=== PATIENT | male | born 1940 | race Caucasian/White ===

== ENCOUNTER → 2016-10-22 | Outpatient (CLI) | payer MEDICARE, BC ==
[2016-10-22 09:00] LABS: CH 31.8; CHCM 32.6; HDW 2.51; HGB 16.4 gm/dL (13.0-17.5); MCH 31.4 pg (25.0-35.0); MCHC 32.1 g/dL (31.0-37.0); MCV 97.8 fL (80.0-100.0); Mean Platelet Volume 7.5; RBC 5.21 m/uL (4.30-5.90); RDW 12.5 % (11.5-15.5); WBC 6.8 k/uL (3.8-10.6)
[2016-10-22 11:05] LABS: ALT 40 U/L (21-72); AST 33 U/L (17-59); Alkaline Phosphatase 49 U/L (38-126); Anion Gap 10 mmol/L; Blood Urea Nitrogen 15 mg/dL (9-20); Calcium 9.9 mg/dL (8.4-10.2); Carbon Dioxide 31 mmol/L (22-30); Chloride 100 mmol/L (98-107); Cholesterol 125 mg/dL (<200); Glucose 107 mg/dL (74-99); HDL Cholesterol 51 mg/dL (40-60); Non-African American GFR(MDRD) >60 (>60 ml/min/1.73 sqM); Potassium 4.7 mmol/L (3.5-5.1); Sodium 141 mmol/L (137-145); Total Bilirubin 1.9 mg/dL (0.2-1.3); Total Protein 7.6 g/dL (6.3-8.2); Triglycerides 152 mg/dL (<150)
[2016-10-22 11:37] LABS: Prostate Specific Antigen 1.07 ng/mL (0.00-4.00)
== END | disposition home or self-care (01) ==
LOC: LABWHC1 08:03
PROVIDERS: ATTEND Internal Medicine Interventional Cardiology
DX: Z00.00 Encounter for general adult medical examination without abnormal findings (principal); E11.9 Type 2 diabetes mellitus without complications; E78.5 Hyperlipidemia, unspecified; I10 Essential (primary) hypertension; Z12.5 Encounter for screening for malignant neoplasm of prostate
CPT/HCPCS: 36415; 80053; 80061; 84153; 84439; 84443; 85027

== ENCOUNTER → 2017-01-04 | Outpatient (CLI) | payer MEDICARE, BC ==
[2017-01-04 15:15] LABS: Blood Urea Nitrogen 23 mg/dL (9-20); Non-African American GFR(MDRD) >60 (>60 ml/min/1.73 sqM)
--- NOTE | 2017-01-04 16:25 | CT ---
EXAMINATION TYPE: CT abdomen pelvis w con DATE OF EXAM: 01/04/2017 3:45 PM COMPARISON: NONE HISTORY: 76-year-old male right lower quadrant bulge. Evaluate for abdominal wall mass. TECHNIQUE: Contiguous axial scanning of the abdomen and pelvis following administration of 100 ml Omn ipaque 300 IV contrast. Delayed images through the kidneys and coronal/sagittal reconstructions perf ormed. CT DLP: 1325.20 mGycm Automated exposure control for dose reduction was used. FINDINGS: There is mild to moderate bilateral gynecomastia incidentally seen. Median sternotomy wires are prese nt. Heart upper limits of normal in size without pericardial effusion. Some strandy atelectasis perip heral left base. No pleural effusion. There is a small hiatal hernia. No focal liver lesion or biliary ductal dilatation. Portal venous system is patent. Gallbladder, adrenal glands, spleen, and pancreas within normal limits. There is bilateral renal cortical thinning suggesting underlying chronic kidney disease. Additionally , a number of 1 cm and smaller hypodense lesions are present in both kidneys, right greater than left , too small for accurate CT characterization, probable cysts. No dilated small bowel, free fluid, or free air. A few prominent retroperitoneal and mesenteric lymph nodes measuring up to 6 mm. Nonspecific, probabl y postinflammatory/reactive. Oral contrast has progressed to the hepatic flexure. There is mild stool burden without pericolonic inflammatory change. There is focal indentation along the right lower anterior abdominal wall which runs down to the anter ior pelvis. There is no underlying mass or fluid collection seen. Refer to axial images 71 through 81 . Bladder is urine distended. Prostate gland prominent measuring 4.5 cm wide. Mildly patulous and later al inguinal canals. No abnormal fluid collection in the pelvis or pelvic lymphadenopathy. Bones: Degenerative changes throughout the spine. No osseous destructive process. IMPRESSION: 1. FOCAL INDENTATION OF THE SKIN SURFACE ALONG THE RIGHT LOWER ANTERIOR ABDOMINAL WALL RUNNING DOWN T O THE ANTERIOR PELVIS; SUSPECT SOME TYPE OF CUTANEOUS/SUBCUTANEOUS SCARRING (AXIAL IMAGES 71 THROUGH 81). THERE IS NO UNDERLYING MASS OR ABNORMAL FLUID COLLECTION. 2. SMALL HIATAL HERNIA AND MILD PROSTATOMEGALY (4.5 CM WIDE).
== END | disposition home or self-care (01) ==
LOC: RADCTMAIN 14:30
PROVIDERS: ATTEND Surgery
DX: N40.0 Benign prostatic hyperplasia without lower urinary tract symptoms (principal); K44.9 Diaphragmatic hernia without obstruction or gangrene; R22.2 Localized swelling, mass and lump, trunk
CPT/HCPCS: 82565; 84520; 74177; 36415; Q9967

== ENCOUNTER → 2017-03-25 | Outpatient (CLI) | payer MEDICARE, BC ==
[2017-03-25 08:55] LABS: ALT 41 U/L (21-72); AST 33 U/L (17-59); Anion Gap 11 mmol/L; Blood Urea Nitrogen 20 mg/dL (9-20); Calcium 9.6 mg/dL (8.4-10.2); Carbon Dioxide 28 mmol/L (22-30); Chloride 100 mmol/L (98-107); Glucose 98 mg/dL (74-99); Non-African American GFR(MDRD) >60 (>60 ml/min/1.73 sqM); Sodium 139 mmol/L (137-145)
[2017-03-25 09:04] LABS: Potassium 4.7 mmol/L (3.5-5.1)
== END | disposition home or self-care (01) ==
LOC: LABWHC1 08:16
PROVIDERS: ATTEND Internal Medicine Interventional Cardiology
DX: E78.2 Mixed hyperlipidemia (principal)
CPT/HCPCS: 36415; 80048; 84450; 84460

== ENCOUNTER → 2017-09-26 | Outpatient (CLI) | payer MEDICARE, BC ==
[2017-09-26 09:47] LABS: ALT 38 U/L (21-72); AST 33 U/L (17-59); Albumin 4.4 g/dL (3.5-5.0); Alkaline Phosphatase 39 U/L (38-126); Anion Gap 10 mmol/L; Blood Urea Nitrogen 21 mg/dL (9-20); Carbon Dioxide 32 mmol/L (22-30); Chloride 98 mmol/L (98-107); Cholesterol 148 mg/dL (<200); Glucose 106 mg/dL (74-99); HDL Cholesterol 48 mg/dL (40-60); LDL Cholesterol,Calculated 66 mg/dL (0-99); Potassium 4.4 mmol/L (3.5-5.1); Sodium 140 mmol/L (137-145); Total Bilirubin 1.4 mg/dL (0.2-1.3); Total Protein 7.6 g/dL (6.3-8.2); Triglycerides 169 mg/dL (<150)
== END | disposition home or self-care (01) ==
LOC: LABWHC1 08:34
PROVIDERS: ATTEND Internal Medicine Interventional Cardiology
DX: E78.2 Mixed hyperlipidemia (principal)
CPT/HCPCS: 36415; 80053; 80061

== ENCOUNTER → 2018-01-11 | Outpatient (CLI) | payer MEDICARE, BC ==
--- NOTE | 2018-01-11 14:40 | MR ---
EXAMINATION TYPE: MR cervical spine wo con DATE OF EXAM: 01/11/2018 COMPARISON: NONE HISTORY: Neck pain TECHNIQUE: Multiplanar, multisequence images of the cervical spine were acquired. C2-C3: Central posterior disc bulge causes anterior mass effect on the thecal sac, mild central steno sis, no significant foraminal encroachment C3-C4: Posterior extension of endplate disc complex causes anterior mass effect on the thecal sac, th ere may be contact the anterior cervical cord, moderate central stenosis, lateral extension endplate disc complex causes some foraminal encroachment left greater than right. C4-C5: Posterior broad-based disc bulge may contact the anterior cervical cord, there is only mild ce ntral canal stenosis. Lateral extension endplate disc complex. Bilateral foraminal encroachment. C5-C6: Posterior broad-based disc bulge may contact the anterior cervical cord, there is moderate bob tral canal stenosis, bilateral foraminal encroachment is present due to lateral extension endplate di sc complexes. C6-C7: Broad-based posterior disc bulge causes anterior mass effect on the thecal sac, there may be c ontact the anterior cervical cord, lateral extension of endplate disc complex causes bilateral forami nal encroachment. Mild central stenosis. C7-T1: Bilateral foraminal encroachment is present due to lateral extension of endplate disc complex, broad-based posterior disc bulge causes mild anterior mass effect on the thecal sac. Cervical segments are intact. There is minimal retrolisthesis C3-4, C4-5. Cervical spinal cord is o f normal signal. Craniovertebral junction relationships are within normal limits. Multilevel spondy losis is present, there is endplate discogenic marrow signal change, loss of disc height and signal i s present at the intervertebral levels. Inflammatory changes present within the left maxillary sinus. There is mucosal disease in the sphenoid sinus, maxillary sinus. IMPRESSION: Degenerative disc disease, multilevel spinal stenosis and neural foraminal encroachment. Sinus diseas e.
== END | disposition home or self-care (01) ==
LOC: RADMRIMAIN 11:11
PROVIDERS: ATTEND Family Medicine
DX: M48.02 Spinal stenosis, cervical region (principal); M50.30 Other cervical disc degeneration, unspecified cervical region; M51.36 Other intervertebral disc degeneration, lumbar region
CPT/HCPCS: 72141

== ENCOUNTER → 2018-04-06 | Outpatient (CLI) | payer MEDICARE, BC ==
[2018-04-06 09:55] LABS: ALT 46 U/L (21-72); AST 35 U/L (17-59); Albumin 4.1 g/dL (3.5-5.0); Alkaline Phosphatase 33 U/L (38-126); Anion Gap 8 mmol/L; Blood Urea Nitrogen 16 mg/dL (9-20); Calcium 9.5 mg/dL (8.4-10.2); Carbon Dioxide 30 mmol/L (22-30); Chloride 101 mmol/L (98-107); Cholesterol 114 mg/dL (<200); Glucose 102 mg/dL (74-99); HDL Cholesterol 53 mg/dL (40-60); LDL Cholesterol,Calculated 36 mg/dL (0-99); Potassium 4.5 mmol/L (3.5-5.1); Sodium 139 mmol/L (137-145); Total Bilirubin 1.6 mg/dL (0.2-1.3); Total Protein 6.9 g/dL (6.3-8.2); Triglycerides 123 mg/dL (<150)
== END | disposition home or self-care (01) ==
LOC: LABWHC1 08:30
PROVIDERS: ATTEND Internal Medicine Interventional Cardiology
DX: E78.2 Mixed hyperlipidemia (principal)
CPT/HCPCS: 36415; 80053; 80061

== ENCOUNTER 2018-10-09 15:33 | Emergency (ER) | payer MEDICARE, BC ==
[2018-10-09 15:48] VITALS: BP 154/76; PULSE 57; RESP 18; TEMP 98.1
[2018-10-09] MEDS ORDERED: DIPH,PERTUS(ACELL)TETVAC-LF 0.5 ML VIAL IM ONE (15:52)
--- NOTE | 2018-10-09 16:52 | XR ---
Right hand 3 views. History laceration. Crush injury. Comparison none. FINDINGS: There is significant soft tissue swelling on the dorsum of the hand. I see no displaced fracture. On the lateral view there is suggestion of a nondisplaced fracture of the head of the second metacarpal. There is some narrowing of the second MP joint space. The carpal bones appear intact. There is some narrowing of the IP joint spaces with mild spurring. IMPRESSION: Soft tissue swelling. Possible hairline fracture of the head of the second metacarpal. The Osteoarthritis.
--- NOTE | 2018-10-09 17:06 | ED ---
Upper Extremity HPI - General Chief Complaint: Extremity Injury, Upper Stated Complaint: hand laceration sent by dr cuello Time Seen by Provider: 10/09/18 15:50 Source: patient Mode of arrival: ambulatory Limitations: no limitations - History of Present Illness Initial Comments: 78-year-old male presenting today for chief complaint of right hand bruising and superficial skin abrasion. Patient states he was at the [employer] when his door swung open smashing it between a brick wall and his car door. Patient states he has superficial abrasions, denies any deep lacerations. Denies any numbness tingling or loss sensation. Patient is to hand swelling and bruising. Patient states he is on anticoagulation therapy for atrial fibrillation, Plavix. Patient states there is pain to the second digit however he is able to fully range without any strength deficit. Patient states he has full sensation. Review of systems negative, patient denies fall or injury to any other extremity he denies any wrist or elbow pain. Patient denies any recent fever, chills, shortness of breath, chest pain, back pain, abdominal pain, nausea or vomiting, numbness or tingling, dysuria or hematuria, constipation or diarrhea, headaches or visual changes, or any other complaints. - Related Data Allergies Allergy/AdvReac Type Severity Reaction Status Date / Time No Known Allergies Allergy Verified 10/09/18 15:48 Review of Systems ROS Statement: Those systems with pertinent positive or pertinent negative responses have been documented in the HPI. ROS Other: All systems not noted in ROS Statement are negative. Past Medical History Past Medical History: Hyperlipidemia, Hypertension, Myocardial Infarction ([place]) Additional Past Medical History / Comment(s): mi x 3 History of Any Multi-Drug Resistant Organisms: None Reported Past Surgical History: Cholecystectomy, Coronary Bypass/CABG, Joint Replacement Additional Past Surgical History / Comment(s): ascending aortic replacement 3 knee replacement Past Psychological History: No Psychological Hx Reported Smoking Status: Never smoker Past Alcohol Use History: Occasional Past Drug Use History: None Reported General Exam - General Exam Comments Initial Comments: General: The patient is awake and alert, in no distress, and does not appear acutely ill. Eye: Pupils are equal, round and reactive to light, extra-ocular movements are intact. No nystagmus. There is normal conjunctiva bilaterally. No signs of icterus. Ears, nose, mouth and throat: There are moist mucous membranes and no oral lesions. Neck: The neck is supple, there is no tenderness or JVD. Cardiovascular: There is a regular rate and rhythm. No murmur, rub or gallop is appreciated. Respiratory: Lungs are clear to auscultation, respirations are non-labored, breath sounds are equal. No wheezes, stridor, rales, or rhonchi. Musculoskeletal: Upon inspection of the hands bilaterally there is significant soft tissue swelling of the right hand as well as ecchymosis. Consistent with subcutaneous hematoma. Patient is able to fully range all 5 digits of the right hand equal comparison with the left. Patient does complain of increased pain with range motion at the second digit. There are superficial abrasions over the MTP joint and sightly proximal. No deeper laceration. Strength 5/5 at the MTP DIP and PIP joints of the hand equal comparison bilaterally each joint was isolated. Sensation intact of the upper extremities equal bilaterally including proximal distal to injury. compartment are soft and compressible. Radial pulses equal bilaterally 2+. Patient denies any recent fever, chills, shortness of breath, chest pain, back pain, abdominal pain, nausea or vomiting, numbness or tingling, dysuria or hematuria, constipation or diarrhea, headaches or visual changes, or any other complaints.Capillary refill < 2 seconds. Patient is able to make the okay fingers crossed thumbs-up extend the wrist and finger opposition of the hands bilaterally. Ulnar median and radial nerves appear intact Neurological: A&O x 3. CN II-XII intact, There are no obvious motor or sensory deficits. Coordination appears grossly intact. Speech is normal. Skin: Skin is warm and dry and no rashes or lesions are noted. Psychiatric: Cooperative, appropriate mood & affect, normal judgment. Limitations: no limitations Course Vital Signs 10/09/18 15:43 Temperature 98.1 F Pulse Rate 57 L Respiratory 18 Rate Blood Pressure 154/76 O2 Sat by Pulse 95 Oximetry Medical Decision Making - Medical Decision Making 78-year-old male presented for right hand injury. Physical exam revealed hematoma. There is a possible hairline fracture of the right second metatarsal. There is point localization of his pain I feel this is acute. Patient neurovascularly intact. Compartments are soft and compressible. Patient was given [facility] instruction and referral for orthopedic surgery evaluation. I discussed the case with attending provider, Dr Boggs at this time we do feel patient is stable for discharge with outpatient follow-up. Patient is agreeable plan. Patient states tetanus is up-to-date. Pt discharged appearing well. Disposition Clinical Impression: Hand abrasion, Traumatic hematoma of hand, Fracture of second metacarpal bone of right hand Disposition: HOME SELF-CARE Condition: Good Instructions (If sedation given, give patient instructions): Hand Fracture (ED) , Abrasion (ED), Hematoma (ED) Additional Instructions: Please use medication as discussed. Please follow-up with family doctor in the next 2 days. Please return to emergency room if the symptoms increase or worsen or for any other concerns. Is patient prescribed a controlled substance at d/c from ED?: No Referrals: Sunny Cuello MD [Primary Care Provider] - 1-2 days Time of Disposition: 17:06
== END 2018-10-09 17:20 | disposition home or self-care (01) ==
LOC: EC 15:33
DX: S92.321A Displaced fracture of second metatarsal bone, right foot, initial encounter for closed fracture (principal); S60.221A Contusion of right hand, initial encounter; I48.91 Unspecified atrial fibrillation; I10 Essential (primary) hypertension; I25.2 Old myocardial infarction; Z79.01 Long term (current) use of anticoagulants; Z79.02 Long term (current) use of antithrombotics/antiplatelets; Z95.1 Presence of aortocoronary bypass graft; Z96.659 Presence of unspecified artificial knee joint; W23.0XXA Caught, crushed, jammed, or pinched between moving objects, initial encounter; Y93.89 Activity, other specified; Y92.89 Other specified places as the place of occurrence of the external cause
CPT/HCPCS: 99283

== ENCOUNTER → 2018-10-18 | Outpatient (CLI) | payer MEDICARE, BC ==
[2018-10-18 18:16] LABS: HCT 43.5 % (39.0-53.0); HGB 14.1 gm/dL (13.0-17.5); MCH 30.9 pg (25.0-35.0); MCHC 32.4 g/dL (31.0-37.0); MCV 95.1 fL (80.0-100.0); Mean Platelet Volume 7.3; Platelet Count 143 k/uL (150-450); RBC 4.58 m/uL (4.30-5.90); RDW 13.1 % (11.5-15.5); WBC 8.9 k/uL (3.8-10.6)
[2018-10-19 01:41] LABS: Albumin 4.2 g/dL (3.80-4.90); Anion Gap 9.1 mmol/L (4.00-12.00); Calcium 9.4 mg/dL (8.7-10.3); Carbon Dioxide 25.9 mmol/L (21.6-31.8); Globulin 2.1 g/dL (1.6-3.3); Potassium 4.2 mmol/L (3.5-5.5); Total Bilirubin 1.7 mg/dL (0.3-1.2); Total Protein 6.3 g/dL (6.2-8.2)
== END | disposition home or self-care (01) ==
LOC: LABWHC1 16:42
PROVIDERS: ATTEND Thoracic Surgery (Cardiothoracic Vascular Surgery)
DX: E63.8 Other specified nutritional deficiencies (principal)
CPT/HCPCS: 36415; 80053; 84134; 85027

== ENCOUNTER → 2018-12-04 | Outpatient (CLI) | payer MEDICARE, BC ==
[2018-12-04 18:25] LABS: Albumin 4.3 g/dL (3.80-4.90); Albumin/Globulin Ratio 2.26 (1.60-3.17); Anion Gap 7.5 mmol/L (4.00-12.00); Calcium 9.4 mg/dL (8.7-10.3); Carbon Dioxide 27.5 mmol/L (21.6-31.8); Globulin 1.9 g/dL (1.6-3.3); LDL Cholesterol,Calculated 43.8 mg/dL (0.0-131.0); Potassium 4.2 mmol/L (3.5-5.5); Total Bilirubin 1.4 mg/dL (0.2-1.2); Total Protein 6.2 g/dL (6.2-8.2); VLDL Calculation 20.2 mg/dL (5.00-40.00)
== END ==
LOC: LABWHC1 07:52
PROVIDERS: ATTEND Internal Medicine Interventional Cardiology
DX: E78.2 Mixed hyperlipidemia (principal)
CPT/HCPCS: 36415; 80053; 80061

== ENCOUNTER → 2019-06-01 | Outpatient (CLI) | payer MEDICARE, BC ==
[2019-06-01 08:35] LABS: Basophils # (A) 0.1 k/uL (0-0.2); Basophils % (A) 2 %; Eosinophils # (A) 0.4 k/uL (0-0.7); Eosinophils % (A) 5 %; HCT 49.8 % (39.0-53.0); HGB 15.6 gm/dL (13.0-17.5); Lymphocytes # (A) 1.3 k/uL (1.0-4.8); Lymphocytes % (A) 17 %; MCH 30.9 pg (25.0-35.0); MCHC 31.2 g/dL (31.0-37.0); MCV 98.8 fL (80.0-100.0); Mean Platelet Volume 6.6; Monocytes # (A) 0.4 k/uL (0-1.0); Monocytes % (A) 5 %; Neutrophils # (A) 5.2 k/uL (1.3-7.7); Neutrophils % (A) 69 %; Platelet Count 165 k/uL (150-450); RBC 5.04 m/uL (4.30-5.90); RDW 12.7 % (11.5-15.5); WBC 7.5 k/uL (3.8-10.6)
[2019-06-01 15:59] LABS: T4, Free (Free Thyroxine) 1.2 ng/dL (0.80-1.80)
[2019-06-01 16:35] LABS: African American GFR (CKD) 93.8 (60.0-200.0); Albumin 4.2 g/dL (3.80-4.90); Albumin/Globulin Ratio 1.91 (1.60-3.17); Anion Gap 8.5 mmol/L (4.00-12.00); BUN/Creat Ratio 23.33 Ratio (12.00-20.00); Calcium 9.5 mg/dL (8.7-10.3); Carbon Dioxide 30.5 mmol/L (21.6-31.8); Chol/HDL Ratio 3.04; Globulin 2.2 g/dL (1.6-3.3); LDL Cholesterol,Calculated 64.6 mg/dL (0.0-131.0); Potassium 4.5 mmol/L (3.5-5.5); Total Bilirubin 1.4 mg/dL (0.2-1.2); Total Protein 6.4 g/dL (6.2-8.2); VLDL Calculation 37.4 mg/dL (5.00-40.00)
== END | disposition home or self-care (01) ==
LOC: LABWHC1 08:01
PROVIDERS: ATTEND Family Medicine
DX: Z00.00 Encounter for general adult medical examination without abnormal findings (principal); I10 Essential (primary) hypertension; E78.5 Hyperlipidemia, unspecified; E11.9 Type 2 diabetes mellitus without complications; I25.2 Old myocardial infarction; Z12.5 Encounter for screening for malignant neoplasm of prostate
CPT/HCPCS: 36415; 80053; 80061; 84153; 84439; 84443; 85025

== ENCOUNTER → 2020-02-18 | Outpatient (CLI) | payer BC, MEDICARE ==
[2020-02-18 16:21] LABS: Albumin 3.9 g/dL (3.80-4.90); Albumin/Globulin Ratio 1.7 (1.60-3.17); Anion Gap 8.1 mmol/L (4.00-12.00); Calcium 9.5 mg/dL (8.7-10.3); Carbon Dioxide 27.9 mmol/L (21.6-31.8); Chol/HDL Ratio 2.57; Globulin 2.3 g/dL (1.6-3.3); LDL Cholesterol,Calculated 47.6 mg/dL (0.0-131.0); Non-African American GFR(CKD) 70.8 (60.0-200.0); Potassium 4.2 mmol/L (3.5-5.5); Total Bilirubin 1.8 mg/dL (0.3-1.2); Total Protein 6.2 g/dL (6.2-8.2); VLDL Calculation 21.4 mg/dL (5.00-40.00)
== END | disposition home or self-care (01) ==
LOC: LABWHC1 08:08
PROVIDERS: ATTEND Internal Medicine Interventional Cardiology
DX: E78.2 Mixed hyperlipidemia (principal)
CPT/HCPCS: 36415; 80053; 80061

== ENCOUNTER 2020-05-13 08:30 | Inpatient (IN) | payer MEDICARE ==
--- NOTE | 2020-05-13 08:55 | ED ---
General Adult HPI - General Chief complaint: Shortness of Breath Stated complaint: SOB Time Seen by Provider: 05/13/20 08:34 Source: patient, RN notes reviewed, old records reviewed Mode of arrival: EMS Limitations: no limitations - History of Present Illness Initial comments: 80-year-old male with 4 days of worsening dyspnea. Reports a mild cough which is nonproductive. No significant chest pain. He reports orthopnea which has worsened over the past 4 days. He had seen his physician and was awaiting a virtual visit. He denies fever. Denies lower extremity swelling. - Related Data Home Medications Medication Instructions Recorded Confirmed Acetaminophen [Tylenol Arthritis] 650 mg PO HS PRN 10/18/18 05/13/20 Aspirin [Adult Low Dose Aspirin EC] 81 mg PO DAILY 10/18/18 05/13/20 Enalapril Maleate [Vasotec] 2.5 mg PO DAILY 10/18/18 05/13/20 Metoprolol Tartrate [Lopressor] 50 mg PO DAILY 10/18/18 05/13/20 Rivaroxaban [Xarelto] 20 mg PO DAILY 10/18/18 05/13/20 Rosuvastatin [Crestor] 5 mg PO DAILY 10/18/18 05/13/20 Albuterol Sulfate [Ventolin HFA] 2 puff INHALATION RT-QID PRN 05/13/20 05/13/20 Amoxicillin/Potassium Clav 1 tab PO Q12HR 05/13/20 05/13/20 [Augmentin 875-125 Tablet] Allergies Allergy/AdvReac Type Severity Reaction Status Date / Time No Known Allergies Allergy Verified 05/13/20 09:19 Review of Systems ROS Statement: Those systems with pertinent positive or pertinent negative responses have been documented in the HPI. ROS Other: All systems not noted in ROS Statement are negative. Past Medical History Past Medical History: Atrial Fibrillation, Coronary Artery Disease (CAD), Hyperlipidemia, Hypertension, Myocardial Infarction ([place]) Additional Past Medical History / Comment(s): mi x 3. fx rt hand Last Myocardial Infarction Date:: 2003 History of Any Multi-Drug Resistant Organisms: None Reported Past Surgical History: Cholecystectomy, Coronary Bypass/CABG, Joint Replacement Additional Past Surgical History / Comment(s): ascending aortic replacement 3 knee replacement Past Psychological History: No Psychological Hx Reported Past Alcohol Use History: Occasional Past Drug Use History: None Reported General Exam Limitations: no limitations General appearance: alert, in no apparent distress Head exam: Present: atraumatic, normocephalic Eye exam: Present: normal appearance, PERRL ENT exam: Present: normal exam Respiratory exam: Present: respiratory distress, rales, decreased breath sounds Cardiovascular Exam: Present: normal rhythm, tachycardia GI/Abdominal exam: Present: soft. Absent: distended, tenderness, guarding, rebound Extremities exam: Present: normal inspection, normal capillary refill. Absent: pedal edema Neurological exam: Present: alert, oriented X3, CN II-XII intact. Absent: motor sensory deficit Psychiatric exam: Present: normal affect, normal mood Skin exam: Present: warm, dry, intact Course Vital Signs 05/13/20 05/13/20 05/13/20 08:32 09:00 10:12 Temperature 99.4 F 97.6 F Pulse Rate 146 H 105 H Respiratory 20 22 19 Rate Blood Pressure 140/111 136/102 O2 Sat by Pulse 89 L 90 L Oximetry EKG Findings - EKG Comments: EKG Findings:: EKG, atrial fibrillation with PVC, rate of 138, QRS duration 118, QTC 481. Repeat EKG at 855, atrial fibrillation with RVR, PVC, no ST segment elevation, rate of 109, QRS duration 118, QTC 422 Medical Decision Making - Medical Decision Making 80-year-old male history of atrial fibrillation, CHF presenting with 4 days of worsening dyspnea. Workup is initiated, EKG showing atrial fibrillation with RVR. Chest x-ray showing pulmonary edema and bilateral pleural effusion. Patient has a stable hemoglobin, elevated white blood cell count at 16.0 given his dyspnea and cough he is started on antibiotics in the emergency department. He has a lactic of 3.4 which is suspect is predominantly from hypoxia rather than sepsis. His BNP is elevated at 7000. Troponin is elevated 0.14. He is on Xarelto, no active chest pain, I suspect this is from demand and CHF. Troponin level will be trended. Case discussed with Dr. Pruitt who will admit, cardiology placed on consult, as well as pulmonology. - Lab Data Result diagrams: 05/13/20 09:09 05/13/20 09:09 Lab Results 05/13/20 05/13/20 05/13/20 Range/Units 09:09 09:09 09:09 WBC 16.0 H (3.8-10.6) k/uL RBC 5.05 (4.30-5.90) m/uL Hgb 15.4 (13.0-17.5) gm/dL Hct 48.6 (39.0-53.0) % MCV 96.3 (80.0-100.0) fL MCH 30.6 (25.0-35.0) pg MCHC 31.8 (31.0-37.0) g/dL RDW 12.6 (11.5-15.5) % Plt Count 157 (150-450) k/uL Neutrophils % 89 % Lymphocytes % 4 % Monocytes % 6 % Eosinophils % 0 % Basophils % 0 % Neutrophils # 14.3 H (1.3-7.7) k/uL Lymphocytes # 0.7 L (1.0-4.8) k/uL Monocytes # 0.9 (0-1.0) k/uL Eosinophils # 0.1 (0-0.7) k/uL Basophils # 0.1 (0-0.2) k/uL PT 13.4 H (9.0-12.0) sec INR 1.3 H (<1.2) APTT 25.9 (22.0-30.0) sec Sodium 134 L (137-145) mmol/L Potassium 3.9 (3.5-5.1) mmol/L Chloride 97 L (98-107) mmol/L Carbon Dioxide 23 (22-30) mmol/L Anion Gap 14 mmol/L BUN 19 (9-20) mg/dL Creatinine 0.87 (0.66-1.25) mg/dL Est GFR (CKD-EPI)AfAm >90 (>60 ml/min/1.73 sqM) Est GFR (CKD-EPI)NonAf 82 (>60 ml/min/1.73 sqM) Glucose 218 H (74-99) mg/dL Plasma Lactic Acid Davion (0.7-2.0) mmol/L Calcium 8.8 (8.4-10.2) mg/dL Magnesium 1.7 (1.6-2.3) mg/dL Total Bilirubin 4.7 H (0.2-1.3) mg/dL AST 62 H (17-59) U/L ALT 36 (4-49) U/L Alkaline Phosphatase 48 (38-126) U/L Troponin I (0.000-0.034) ng/mL NT-Pro-B Natriuret Pep pg/mL Total Protein 7.4 (6.3-8.2) g/dL Albumin 4.4 (3.5-5.0) g/dL 05/13/20 05/13/20 05/13/20 Range/Units 09:09 09:09 09:09 WBC (3.8-10.6) k/uL RBC (4.30-5.90) m/uL Hgb (13.0-17.5) gm/dL Hct (39.0-53.0) % MCV (80.0-100.0) fL MCH (25.0-35.0) pg MCHC (31.0-37.0) g/dL RDW (11.5-15.5) % Plt Count (150-450) k/uL Neutrophils % % Lymphocytes % % Monocytes % % Eosinophils % % Basophils % % Neutrophils # (1.3-7.7) k/uL Lymphocytes # (1.0-4.8) k/uL Monocytes # (0-1.0) k/uL Eosinophils # (0-0.7) k/uL Basophils # (0-0.2) k/uL PT (9.0-12.0) sec INR (<1.2) APTT (22.0-30.0) sec Sodium (137-145) mmol/L Potassium (3.5-5.1) mmol/L Chloride (98-107) mmol/L Carbon Dioxide (22-30) mmol/L Anion Gap mmol/L BUN (9-20) mg/dL Creatinine (0.66-1.25) mg/dL Est GFR (CKD-EPI)AfAm (>60 ml/min/1.73 sqM) Est GFR (CKD-EPI)NonAf (>60 ml/min/1.73 sqM) Glucose (74-99) mg/dL Plasma Lactic Acid Davion 3.4 H* (0.7-2.0) mmol/L Calcium (8.4-10.2) mg/dL Magnesium (1.6-2.3) mg/dL Total Bilirubin (0.2-1.3) mg/dL AST (17-59) U/L ALT (4-49) U/L Alkaline Phosphatase (38-126) U/L Troponin I 0.146 H* (0.000-0.034) ng/mL NT-Pro-B Natriuret Pep 7230 pg/mL Total Protein (6.3-8.2) g/dL Albumin (3.5-5.0) g/dL Critical Care Time Critical Care Time: Yes Total Critical Care Time: 35 Disposition Clinical Impression: Community acquired pneumonia, Congestive heart failure Disposition: ADMITTED IP TO THIS [facility] Condition: Stable Is patient prescribed a controlled substance at d/c from ED?: No Referrals: Sunny Pruitt MD [Primary Care Provider] - 1-2 days Decision to Admit Reason: Admit from EC Decision Date: 05/13/20 Decision Time: 10:28
[2020-05-13] MEDS ORDERED: DILTIAZEM DRIP BOLUS FROM BAG 1 MG SOLN IV ONE (09:00)
[2020-05-13 09:18] LABS: Basophils # (A) 0.1 k/uL (0-0.2); Basophils % (A) 0 %; Eosinophils # (A) 0.1 k/uL (0-0.7); Eosinophils % (A) 0 %; HCT 48.6 % (39.0-53.0); HGB 15.4 gm/dL (13.0-17.5); Lymphocytes # (A) 0.7 k/uL (1.0-4.8); Lymphocytes % (A) 4 %; MCH 30.6 pg (25.0-35.0); MCHC 31.8 g/dL (31.0-37.0); MCV 96.3 fL (80.0-100.0); Mean Platelet Volume 7.5; Monocytes # (A) 0.9 k/uL (0-1.0); Monocytes % (A) 6 %; Neutrophils # (A) 14.3 k/uL (1.3-7.7); Neutrophils % (A) 89 %; Platelet Count 157 k/uL (150-450); RBC 5.05 m/uL (4.30-5.90); RDW 12.6 % (11.5-15.5)
[2020-05-13 09:28] LABS: INR 1.3 (<1.2); Partial Thromboplastin Time 25.9 sec (22.0-30.0); Prothrombin Time 13.4 sec (9.0-12.0)
[2020-05-13] MEDS ORDERED: FUROSEMIDE 10 MG/ML 4 ML VIAL IV STA (09:28)
[2020-05-13] MEDS: DILTIAZEM 125 MG in SODIUM CHLORIDE 0.9% 100 ML IV SCH (09:41)
--- NOTE | 2020-05-13 09:43 | XR ---
EXAMINATION TYPE: XR chest 2V DATE OF EXAM: 05/13/2020 COMPARISON: Prior chest x-ray 12/27/2012 HISTORY: Difficulty breathing, shortness of breath TECHNIQUE: Frontal and lateral views of the chest are obtained. FINDINGS: There is stable appearance of the heart which is enlarged. Aorta is dense. Central vascula rity and interstitium are increased. There is elevation of the right hemidiaphragm. Looking the poste rior costophrenic angle suggested. There are coronary artery calcifications. Patient is post median s ternotomy. The osseous structures are intact, there is thoracic spondylosis. IMPRESSION: Correlate for pulmonary venous hypertension and interstitial edema, there may be pleural effusion.
[2020-05-13 09:49] LABS: ALT 36 U/L (4-49); AST 62 U/L (17-59); African American GFR (CKD) >90 (>60 ml/min/1.73 sqM); Albumin 4.4 g/dL (3.5-5.0); Alkaline Phosphatase 48 U/L (38-126); Anion Gap 14 mmol/L; Blood Urea Nitrogen 19 mg/dL (9-20); Calcium 8.8 mg/dL (8.4-10.2); Carbon Dioxide 23 mmol/L (22-30); Chloride 97 mmol/L (98-107); Glucose 218 mg/dL (74-99); Magnesium 1.7 mg/dL (1.6-2.3); Non-African American GFR(CKD) 82 (>60 ml/min/1.73 sqM); Sodium 134 mmol/L (137-145); Total Bilirubin 4.7 mg/dL (0.2-1.3); Total Protein 7.4 g/dL (6.3-8.2)
[2020-05-13 09:54] LABS: Potassium 3.9 mmol/L (3.5-5.1)
[2020-05-13] MEDS ORDERED: cefTRIAXone IN SWFI 1,000 MG/10 ML SYRINGE IVP STA (10:00)
[2020-05-13] MEDS ORDERED: AZITHROMYCIN 500 MG in SODIUM CHLORIDE 0.9% 250 ML IVPB STA (10:00)
[2020-05-13] MEDS ORDERED: NALOXONE 0.4 MG/ML 1 ML VIAL IV PRN (10:25)
[2020-05-13] MEDS ORDERED: ACETAMINOPHEN TAB 325 MG TAB PO PRN (10:25)
--- NOTE | 2020-05-13 17:17 | ECHOF ---
Referral Reason:chf MEASUREMENTS -------- HEIGHT: 162.6 cm WEIGHT: 81.6 kg BP: RVIDd: 3.6 cm (< 3.3) IVSd: 1.4 cm (0.6 - 1.1) LVIDd: 4.0 cm (3.9 - 5.3) LVPWd: 1.2 cm (0.6 - 1.1) IVSs: 1.5 cm LVIDs: 4.2 cm LVPWs: 1.0 cm LA Diam: 4.4 cm (2.7 - 3.8) LAESV Index (A-L): 36.14 ml/m Ao Diam: 2.5 cm (2.0 - 3.7) MV EXCURSION: 16.963 mm (> 18.000) MV EF SLOPE: 59 mm/s (70 - 150) EPSS: 0.4 cm MV E Jimbo: 0.71 m/s MV DecT: 178 ms MV A Jimbo: 0.72 m/s MV E/A Ratio: 0.98 AV maxP.97 mmHg AV meanP.45 mmHg RAP: 10.00 mmHg RVSP: 59.50 mmHg FINDINGS -------- Sinus rhythm. This was a techncally difficult study with suboptimal views, , Definity utilized for enhancement of i mages. The left ventricular size is normal. Left ventricular wall thickness is normal. There is severe g lobal hypokinesis of LV . Overall left ventricular systolic function is severely impaired with, an EF between 20 - 25 %. The right ventricle is moderately enlarged. The left atrium is markedly dilated. LA is severely dilated >40 ml/m2 The right atrial size is normal. Peak/mean gradient across the Aortic Valve is 11.97mmHg / 7.45mmHg. Normally functioning bioprosthe tic valve. Mild mitral annular calcification present. [id number] mitral regurgitation is present. Mild tricuspid regurgitation present. There is moderate pulmonary hypertension. Trace/mild (physiologic) pulmonic regurgitation. The aortic root size is normal. There is no pericardial effusion. CONCLUSIONS -------- 1. The left ventricular size is normal. 2. Left ventricular wall thickness is normal. 3. There is severe global hypokinesis of LV . 4. Overall left ventricular systolic function is severely impaired with, an EF between 20 - 25 %. 5. The right ventricle is moderately enlarged. 6. The left atrium is markedly dilated. 7. LA is severely dilated >40 ml/m2 8. The right atrial size is normal. 9. Peak/mean gradient across the Aortic Valve is 11.97mmHg / 7.45mmHg. 10. Normally functioning bioprosthetic valve. 11. Mild mitral annular calcification present. 12. [id number] mitral regurgitation is present. 13. Mild tricuspid regurgitation present. 14. There is moderate pulmonary hypertension. 15. Trace/mild (physiologic) pulmonic regurgitation. 16. The aortic root size is normal. 17. There is no pericardial effusion. NUCLEAR OPERATIONS SPECIALIST: Mikki Kenyon RDCS
--- NOTE | 2020-05-13 20:08 | CONS ---
CONSULTATION PULMONARY/CRITICAL CARE CONSULTATION: DATE OF SERVICE: 05/13/2020 REASON FOR CONSULTATION: Shortness of breath. This is an 80-year-old male who presented to the emergency department on May 13 at 8:30 in the morning with complaints of increasing shortness of breath. The patient states that for the last 4 days he has had increasing shortness of breath. He does describe a mild nonproductive cough. No fever or chills. The patient denies any coughing up of phlegm. He denies all GI complaints, including nausea, vomiting, diarrhea and abdominal pain. He also denies any genitourinary complaints. The patient has had this episode before when he has had congestive heart failure. He feels it is likely that. In addition, he does admit to rapid heartbeat, palpitations and fluttering in the chest, and it is noted that he is on Cardizem drip for atrial fibrillation with RVR. The patient does have some mild lower extremity edema as well. He also described what appears to be orthopnea. He is resting comfortably. He was given Lasix in the emergency department. He is waiting for a bed. The patient states that he has urinated quite frequently and significantly since receiving the IV Lasix. It appears the patient has had multiple admissions for similar episodes. He was admitted by the ER physician for heart failure and pneumonia. I do not suspect that he has pneumonia. HOME MEDICATIONS: Reviewed. He is on Tylenol, aspirin, Vasotec, metoprolol, Xarelto, Crestor, albuterol and Augmentin. ALLERGIES: DENIED. PAST MEDICAL HISTORY: His past medical history includes atrial fibrillation, CAD, hyperlipidemia, hypertension, myocardial infarction, and episode previously of CHF/fluid overload. He has had 3 myocardial infarctions. He also suffers from a history of fracture to the right hand. His last PR was in 2003. SURGICAL HISTORY: Surgical history includes cholecystectomy, heart surgery and joint replacement. The patient has had 3 knee replacements, and his cardiac surgery included aortic valve replacement and repair of an aortic aneurysm. SOCIAL HISTORY: Negative for tobacco. He denies any illicit drug use or alcohol use to any great extent. FAMILY HISTORY: Noncontributory. REVIEW OF SYSTEMS: CONSTITUTIONAL: Fatigue NEUROLOGIC: Negative. HEENT: Negative. CARDIOVASCULAR: Palpitations, fluttering in the chest, shortness of breath. PULMONARY: Shortness of breath, dry nonproductive cough. GI: Negative. : Negative. RHEUMATOLOGIC: Negative. IMMUNOLOGIC: Negative. ENDOCRINOLOGIC: Negative. DERMATOLOGIC: Negative. PHYSICAL EXAMINATION: VITAL SIGNS: Vital signs are reviewed. Temperature is 97.6, heart rate 106 and irregular, respiratory rate 18, blood pressure 144/93, mean 110, four-liter saturation 91% to 92%. GENERAL APPEARANCE: Appears in no acute distress. HEENT: Examination is grossly unremarkable. Nasal oxygen noted. NECK: Supple. Full range of motion. No adenopathy or thyromegaly. Neck veins are flat. CARDIOVASCULAR: Cardiovascular examination reveals regular rhythm and rate. S1, S2 normal. No S3, S4 or murmur. LUNGS: Lungs reveal bibasilar crackles. Breath sounds equal. No wheezes or rhonchi. ABDOMEN: Soft, obese. Bowel sounds are heard. EXTREMITIES: Extremities reveal some mild edema. No cyanosis or clubbing. SKIN: Without rash. NEUROLOGIC: Neurologic examination is nonfocal. LABS/IMAGING: Reviewed. White count 19, hemoglobin 15.4, hematocrit 48.6, platelet count 157,000. PT 13.4, INR 1.3, PTT is 25.9. Sodium 134, potassium 3.9, chloride 97, CO2 23. Anion gap is 14. BUN and creatinine were 19 and 0.87, glucose 218. Lactic acid 3.4. Total bilirubin is 4.7, AST 62, ALT 36. Troponin 0.146. N-terminal proBNP is 7230. Microbiology is currently negative. Chest x-ray is consistent in my opinion with some pulmonary venous hypertension and interstitial edema. CURRENT MEDICATIONS: Current medications are reviewed. He is currently on Tylenol, Cardizem drip, Lasix and Narcan. He did get a dose of Zithromax and ceftriaxone in the emergency room. I really do not believe he needs any antibiotics at this time. ASSESSMENT: 1. Shortness of breath with orthopnea and lower extremity edema as well as atrial fibrillation with rapid ventricular response, all consistent with congestive heart failure. 2. Doubt pneumonia. 3. Status post aortic valve replacement and repair of a thoracic aortic aneurysm in 2015. 4. Hyperlipidemia. 5. Hypertension. 6. Coronary artery disease. 7. Previous myocardial infarction. 8. Multiple other medical problems and comorbidities. PLAN: Current treatment is appropriate. I do not believe the patient would benefit from any additional antibiotics. One could check a procalcitonin level. Additional recommendations and suggestions are forthcoming. Will continue to follow. MMODL / IJN: [id number] /
[2020-05-13] MEDS: FUROSEMIDE 10 MG/ML 4 ML VIAL IV SCH (21:52)
--- NOTE | 2020-05-13 23:14 | P.HPIM ---
History of Present Illness H&P Date: 05/13/20 Chief Complaint: Dyspnea This is a history of physical and 80-year-old white male with known history of atrial fibrillation who has been complaining of 3-4 day history of worsening dyspnea on exertion. Evaluation of the management did show atrial fibrillation with rapid ventricular response and subsequent pleural effusion. The patient is able to hold a conversation but is slightly dyspneic. No significant edema is stated. Review of Systems Constitutional: Reports fatigue, Denies chills, Denies fever Eyes: denies blurred vision, denies pain Ears, nose, mouth and throat: Denies headache, Denies sore throat Cardiovascular: Reports as per HPI, Reports shortness of breath, Denies leg edema, Denies syncope Respiratory: Denies cough Musculoskeletal: Denies myalgias Integumentary: Denies pruritus, Denies rash Psychiatric: Denies anxiety, Denies depression Past Medical History Past Medical History: Atrial Fibrillation, Coronary Artery Disease (CAD), Heart Failure, Hyperlipidemia, Hypertension, Myocardial Infarction (AZ) Additional Past Medical History / Comment(s): mi x 3. fx rt hand Last Myocardial Infarction Date:: 2003 History of Any Multi-Drug Resistant Organisms: None Reported Past Surgical History: Cholecystectomy, Coronary Bypass/CABG, Heart Catheterization With Stent, Joint Replacement Additional Past Surgical History / Comment(s): ascending aortic and bicuspid valve replacement at [facility] , 3 knee replacement, 3 stents total Past Anesthesia/Blood Transfusion Reactions: No Reported Reaction Date of Last Stent Placement:: 2008 Past Psychological History: No Psychological Hx Reported Smoking Status: Never smoker Past Alcohol Use History: Occasional Past Drug Use History: None Reported - Past Family History Mother Family Medical History: Coronary Artery Disease (CAD), Liver Disease Brother(s) Family Medical History: Congestive Heart Failure (CHF) Additional Family Medical History / Comment(s): heart transplant Medications and Allergies Home Medications Medication Instructions Recorded Confirmed Type Acetaminophen [Tylenol Arthritis] 650 mg PO HS PRN 10/18/18 05/13/20 History Aspirin [Adult Low Dose Aspirin EC] 81 mg PO DAILY 10/18/18 05/13/20 History Enalapril Maleate [Vasotec] 2.5 mg PO DAILY 10/18/18 05/13/20 History Metoprolol Tartrate [Lopressor] 50 mg PO DAILY 10/18/18 05/13/20 History Rivaroxaban [Xarelto] 20 mg PO DAILY 10/18/18 05/13/20 History Rosuvastatin [Crestor] 5 mg PO DAILY 10/18/18 05/13/20 History Albuterol Sulfate [Ventolin HFA] 2 puff INHALATION RT-QID PRN 05/13/20 05/13/20 History Amoxicillin/Potassium Clav 1 tab PO Q12HR 05/13/20 05/13/20 History [Augmentin 875-125 Tablet] Allergies Allergy/AdvReac Type Severity Reaction Status Date / Time No Known Allergies Allergy Verified 05/13/20 09:19 Physical Exam Vitals: Vital Signs Temp Pulse Pulse Resp BP BP Pulse Ox 05/13/20 22:15 97.6 F 89 20 126/77 94 L 05/13/20 22:03 100 18 111/74 91 L 05/13/20 20:10 100 18 114/78 05/13/20 19:09 94 18 123/84 91 L 05/13/20 18:30 98 18 110/98 91 L 05/13/20 17:10 101 H 18 127/92 05/13/20 16:44 105 H 18 142/89 142 H 05/13/20 15:54 102 H 18 152/106 91 L 05/13/20 15:21 94 18 156/98 90 L 05/13/20 14:48 103 H 18 118/99 94 L 05/13/20 13:59 106 H 18 144/93 05/13/20 13:01 96 18 131/86 91 L 05/13/20 12:05 104 H 20 120/98 91 L 05/13/20 11:21 106 H 18 130/75 92 L 05/13/20 10:12 97.6 F 105 H 19 136/102 90 L 05/13/20 09:00 22 05/13/20 08:32 99.4 F 146 H 20 140/111 89 L Intake and Output 05/13/20 05/13/20 05/14/20 14:59 22:59 06:59 Other: Weight 81.647 kg 81.647 kg - Constitutional General appearance: no acute distress - EENT Eyes: EOMI - Respiratory Respiratory: bilateral: CTA, diminished - Cardiovascular Rhythm: irregularly irregular Heart sounds: normal: S1, S2 Abnormal Heart Sounds: no S3 Gallop - Gastrointestinal General gastrointestinal: soft, no tenderness - Musculoskeletal Musculoskeletal: generalized weakness - Psychiatric Psychiatric: A&O x's 3, appropriate affect Results CBC & Chem 7: 05/13/20 09:09 05/13/20 09:09 Labs: Abnormal Lab Results - Last 24 Hours (Table) 05/13/20 05/13/20 05/13/20 Range/Units 09:09 09:09 09:09 WBC 16.0 H (3.8-10.6) k/uL Neutrophils # 14.3 H (1.3-7.7) k/uL Lymphocytes # 0.7 L (1.0-4.8) k/uL PT 13.4 H (9.0-12.0) sec INR 1.3 H (<1.2) Sodium 134 L (137-145) mmol/L Chloride 97 L (98-107) mmol/L Glucose 218 H (74-99) mg/dL Plasma Lactic Acid Davion (0.7-2.0) mmol/L Total Bilirubin 4.7 H (0.2-1.3) mg/dL AST 62 H (17-59) U/L Troponin I (0.000-0.034) ng/mL 05/13/20 05/13/20 05/13/20 Range/Units 09:09 09:09 11:55 WBC (3.8-10.6) k/uL Neutrophils # (1.3-7.7) k/uL Lymphocytes # (1.0-4.8) k/uL PT (9.0-12.0) sec INR (<1.2) Sodium (137-145) mmol/L Chloride (98-107) mmol/L Glucose (74-99) mg/dL Plasma Lactic Acid Davion 3.4 H* 3.3 H* (0.7-2.0) mmol/L Total Bilirubin (0.2-1.3) mg/dL AST (17-59) U/L Troponin I 0.146 H* (0.000-0.034) ng/mL 05/13/20 05/13/20 Range/Units 12:48 15:44 WBC (3.8-10.6) k/uL Neutrophils # (1.3-7.7) k/uL Lymphocytes # (1.0-4.8) k/uL PT (9.0-12.0) sec INR (<1.2) Sodium (137-145) mmol/L Chloride (98-107) mmol/L Glucose (74-99) mg/dL Plasma Lactic Acid Davion (0.7-2.0) mmol/L Total Bilirubin (0.2-1.3) mg/dL AST (17-59) U/L Troponin I 1.770 H* 2.160 H* (0.000-0.034) ng/mL Thrombosis Risk Factor Assmnt - Choose All That Apply Any of the Below Risk Factors Present?: Yes Each Factor Represents 1 point: Acute [place], Heart failure (<1month), Obesity (BMI >25) Each Risk Factor Represents 3 Points: Age 75 years or older Other congenital or acquired thrombophilia - If yes, enter type in comment: No Thrombosis Risk Factor Assessment Total Risk Factor Score: 6 Thrombosis Risk Factor Assessment Level: High Risk Assessment and Plan (1) Atrial fibrillation with rapid ventricular response Current Visit: Yes Status: Acute Code(s): I48.91 - UNSPECIFIED ATRIAL FIBRILLATION SNOMED Code(s): 449311398768453 (2) Community acquired pneumonia Current Visit: Yes Status: Acute Code(s): J18.9 - PNEUMONIA, UNSPECIFIED ORGANISM SNOMED Code(s): 753542973 (3) Congestive heart failure Current Visit: Yes Status: Acute Code(s): I50.9 - HEART FAILURE, UNSPECIFIED SNOMED Code(s): 38696643 Plan: Continue diuresis. Continue rate control treatment. Check CBC and CMP in the a.m. Appreciate cardiology input. Question need for echocardiogram if not don. The patient is otherwise full code at this t. Prognosis is guarded secondary to multiple comorbidities. See orders otherwise.
--- NOTE | 2020-05-13 23:45 | CONS ---
CONSULTATION Mr. Barrow is an 80-year-old male with a known history of coronary artery disease status post percutaneous revascularization, history of aortic valve replacement, who presented with symptoms of progressive dyspnea with nonproductive cough and peripheral edema. He was feeling quite dyspneic on presentation. He has no symptoms of chest discomfort. He has no symptoms of dizziness or palpitation. No PND, orthopnea, or syncope. He has a known history of atrial fibrillation and has been anticoagulated. His coronary risk factors are positive for hypertension, hyperlipidemia. He is a nondiabetic. MEDICATION: Include Lopressor 50 mg daily, Xarelto 20 mg daily, Crestor 5 mg daily, enalapril 2.5 mg daily, aspirin 81 mg daily and albuterol. REVIEW OF SYSTEMS: RESPIRATORY system: He had symptoms of progressive dyspnea and the cough. No fever. GI system: No recent GI bleeding. No peptic ulcer disease. system: No dysuria or hematuria. Nervous system: No seizure. PHYSICAL EXAMINATION: This is an 80-year-old male, alert, oriented, no apparent distress. Blood pressure running in the 130s to 150s with a heart rate in the high 90s to low 100s, afebrile. HEAD: Normocephalic. Eyes sclerae anicteric. Neck good upstroke. No bruit. Lungs no wheezes or rales appreciated. Heart irregularly irregular S1, S2. No S3 with a systolic murmur heard at the base. No diastolic murmur. No rub. ABDOMEN: Soft, nontender. Positive bowel sounds. No megaly. EXTREMITIES: Trace edema bilaterally. LAB DATA: EKG revealed atrial fibrillation with a rate of 109, evidence of inferior myocardial infarction with poor R-wave progression. Troponin of 0.14, 1.7 and 2.1. NT proBNP of 7230. BUN and creatinine 19 and 0.87. INR 1.3, hemoglobin 15.4, white blood cell of 16,000. Chest x-ray revealed mild interstitial edema. IMPRESSION: 1. Symptoms of progressive dyspnea with cough, no febrile episode. The patient has leukocytosis. There is no evidence of infiltrate on the chest x-ray. The possibility of bronchitis cannot be totally excluded, but there was evidence of congestive heart failure. 2. Troponin elevation could be related to the heart failure. The possibility of primary ischemic event cannot be totally excluded. 3. History of coronary artery disease. 4. History of atrial fibrillation. 5. History of aortic valve replacement. 6. Hypertension. 7. Hyperlipidemia. RECOMMENDATIONS: I will re-initiate his oral medication. Patient will receive IV Lasix. He will have repeat echocardiogram with Doppler. We will follow his enzymes and his EKG and depending on his progress, further recommendations will be made. Thank you for this consult. We will follow with you. MMROCÍOL / IJN: [id number] /
[2020-05-14] MEDS: DILTIAZEM 125 MG in SODIUM CHLORIDE 0.9% 100 ML IV SCH (05:43)
[2020-05-14 07:41] LABS: African American GFR (CKD) >90 (>60 ml/min/1.73 sqM); Anion Gap 11 mmol/L; Blood Urea Nitrogen 22 mg/dL (9-20); Calcium 8.8 mg/dL (8.4-10.2); Carbon Dioxide 28 mmol/L (22-30); Chloride 100 mmol/L (98-107); Glucose 135 mg/dL (74-99); Non-African American GFR(CKD) 81 (>60 ml/min/1.73 sqM); Potassium 3.8 mmol/L (3.5-5.1); Sodium 139 mmol/L (137-145)
--- NOTE | 2020-05-14 08:03 | P.PN ---
Subjective Progress Note Date: 05/14/20 Principal diagnosis: Atrial fibrillation with rapid ventricular response. The patient is noted for a trip fibrillation and has been on Cardizem drip for the last day or so. The patient is doing quite well. Appropriate diuresis also noted. No significant nausea or vomiting. He is able to converse appropriately. Objective - Vital Signs Vital signs: Vital Signs Temp 98.0 F 05/14/20 04:00 Pulse 108 H 05/14/20 04:00 Resp 20 05/14/20 04:00 BP 126/70 05/14/20 04:00 Pulse Ox 94 L 05/14/20 04:00 Intake & Output 05/13/20 05/14/20 05/14/20 18:59 06:59 18:59 Intake Total 100.167 Output Total 700 Balance -599.833 Weight 81.647 kg 89.1 kg Intake: Intake, IV Titration 100.167 Amount Diltiazem 125 mg In 100.167 Sodium Chloride 0.9% 100 ml @ 5 MG/HR 5 mls/hr IV .Q24H [facility] Rx#:[id number] Output: Urine 700 Other: Voiding Method Toilet # Voids 2 - Constitutional General appearance: Present: average body habitus - EENT Eyes: Absent: abnormal pupil - Respiratory Respiratory: bilateral: diminished - Cardiovascular Rhythm: irregularly irregular Heart sounds: normal: S1, S2 Abnormal Heart Sounds: Absent: S3 Gallop - Gastrointestinal General gastrointestinal: Present: soft. Absent: tenderness - Integumentary Integumentary: Absent: cellulitis - Labs CBC & Chem 7: 05/13/20 09:09 05/14/20 07:13 Labs: Abnormal Lab Results - Last 24 Hours (Table) 05/13/20 05/13/20 05/13/20 Range/Units 09:09 09:09 09:09 WBC 16.0 H (3.8-10.6) k/uL Neutrophils # 14.3 H (1.3-7.7) k/uL Lymphocytes # 0.7 L (1.0-4.8) k/uL PT 13.4 H (9.0-12.0) sec INR 1.3 H (<1.2) Sodium 134 L (137-145) mmol/L Chloride 97 L (98-107) mmol/L BUN (9-20) mg/dL Glucose 218 H (74-99) mg/dL Plasma Lactic Acid Davion (0.7-2.0) mmol/L Total Bilirubin 4.7 H (0.2-1.3) mg/dL AST 62 H (17-59) U/L Troponin I (0.000-0.034) ng/mL Procalcitonin (0.02-0.09) ng/mL 05/13/20 05/13/20 05/13/20 Range/Units 09:09 09:09 11:55 WBC (3.8-10.6) k/uL Neutrophils # (1.3-7.7) k/uL Lymphocytes # (1.0-4.8) k/uL PT (9.0-12.0) sec INR (<1.2) Sodium (137-145) mmol/L Chloride (98-107) mmol/L BUN (9-20) mg/dL Glucose (74-99) mg/dL Plasma Lactic Acid Davion 3.4 H* 3.3 H* (0.7-2.0) mmol/L Total Bilirubin (0.2-1.3) mg/dL AST (17-59) U/L Troponin I 0.146 H* (0.000-0.034) ng/mL Procalcitonin (0.02-0.09) ng/mL 05/13/20 05/13/20 05/13/20 Range/Units 12:48 15:44 15:44 WBC (3.8-10.6) k/uL Neutrophils # (1.3-7.7) k/uL Lymphocytes # (1.0-4.8) k/uL PT (9.0-12.0) sec INR (<1.2) Sodium (137-145) mmol/L Chloride (98-107) mmol/L BUN (9-20) mg/dL Glucose (74-99) mg/dL Plasma Lactic Acid Davion (0.7-2.0) mmol/L Total Bilirubin (0.2-1.3) mg/dL AST (17-59) U/L Troponin I 1.770 H* 2.160 H* (0.000-0.034) ng/mL Procalcitonin 0.45 H (0.02-0.09) ng/mL 05/14/20 Range/Units 07:13 WBC (3.8-10.6) k/uL Neutrophils # (1.3-7.7) k/uL Lymphocytes # (1.0-4.8) k/uL PT (9.0-12.0) sec INR (<1.2) Sodium (137-145) mmol/L Chloride (98-107) mmol/L BUN 22 H (9-20) mg/dL Glucose 135 H (74-99) mg/dL Plasma Lactic Acid Davion (0.7-2.0) mmol/L Total Bilirubin (0.2-1.3) mg/dL AST (17-59) U/L Troponin I (0.000-0.034) ng/mL Procalcitonin (0.02-0.09) ng/mL Assessment and Plan (1) Atrial fibrillation with rapid ventricular response Current Visit: Yes Status: Acute Code(s): I48.91 - UNSPECIFIED ATRIAL FIBRILLATION SNOMED Code(s): 978544050718214 (2) Community acquired pneumonia Current Visit: Yes Status: Acute Code(s): J18.9 - PNEUMONIA, UNSPECIFIED ORGANISM SNOMED Code(s): 858541279 (3) Congestive heart failure Current Visit: Yes Status: Acute Code(s): I50.9 - HEART FAILURE, UNSPECIFIED SNOMED Code(s): 91420934 Plan: Continue diuresis. Continue rate control treatment. Check CBC and CMP in the a.m. Appreciate cardiology input. See orders otherwise.
[2020-05-14] MEDS: lisinopriL 5 MG TAB PO SCH (08:32)
[2020-05-14] MEDS: RIVAROXABAN 20 MG TAB PO SCH (08:32)
[2020-05-14] MEDS: ATORVASTATIN 10 MG TAB PO SCH (08:32)
[2020-05-14] MEDS: ASPIRIN 81 MG PO SCH (08:32)
[2020-05-14] MEDS: FUROSEMIDE 10 MG/ML 4 ML VIAL IV SCH ×2 (08:33→19:57)
[2020-05-14] MEDS ORDERED: METOPROLOL TARTRATE 50 MG TAB PO SCH (09:00)
[2020-05-14 11:21] VITALS: BMI 33.7
[2020-05-14 14:36] LABS: Appearance,Urine Clear (Clear); Bilirubin,Urine Negative (Negative); Blood,Urine Trace (Negative); Color,Urine Yellow; Glucose,Urine (UA) Negative (Negative); Hyaline Casts,Urine 45 /lpf (0-2); Ketones,Urine Negative (Negative); Leukocyte Esterase,Urine Negative (Negative); Mucus,Urine Rare /hpf; Nitrite,Urine Negative (Negative); PH, Urine 5.5 (5.0-8.0); Protein,Urine Trace (Negative); RBC,Urine 2 /hpf (0-5); Specific Gravity,Urine 1.012 (1.001-1.035); Squamous Epithelial Cell,Urine <1 /hpf (0-4); Urobilinogen,Urine <2.0 mg/dL (<2.0); WBC,Urine 2 /hpf (0-5)
--- NOTE | 2020-05-14 14:51 | P.PN ---
Subjective Progress Note Date: 05/14/20 Principal diagnosis: Acute exacerbation of systolic congestive heart failure The patient is seen today 05/14/2020 in follow-up on the selective care unit. He is currently sitting up at bedside. Awake and alert in no acute distress. Breathing quite a bit easier today compared to yesterday. He is maintaining good O2 saturations in the 90s on 2 L per nasal cannula. He is afebrile. He remains in atrial fibrillation with a controlled ventricular rate. Still some crackles in the bilateral bases. Currently on Lasix 40 mg every 12 hours. Blood culture reveals no growth to date. Sodium 139. Potassium 3.8. Creatinine 0.88. Peak troponin 2.16. Pro-calcitonin 0.45. He remains in a negative balance. Objective - Vital Signs Vital signs: Vital Signs Temp 98.2 F 05/14/20 11:25 Pulse 70 05/14/20 11:25 Resp 16 05/14/20 11:25 BP 108/56 05/14/20 11:25 Pulse Ox 97 05/14/20 11:25 Intake & Output 05/13/20 05/14/20 05/14/20 18:59 06:59 18:59 Intake Total 100.167 31.167 Output Total 700 400 Balance -599.833 -368.833 Weight 81.647 kg 89.1 kg 89.1 kg Intake: Intake, IV Titration 100.167 31.167 Amount Diltiazem 125 mg In 100.167 31.167 Sodium Chloride 0.9% 100 ml @ 5 MG/HR 5 mls/hr IV .Q24H [facility] Rx#:[id number] Output: Urine 700 400 Other: Voiding Method Toilet Toilet # Voids 2 - Exam GENERAL EXAM: Alert, active, very pleasant 80-year-old gentleman, on 2 L nasal cannula comfortable in no apparent distress. HEAD: Normocephalic. EYES: Normal reaction of pupils, equal size. NOSE: Clear with pink turbinates. THROAT: No erythema or exudates. NECK: No masses, no JVD. CHEST: No chest wall deformity. LUNGS: Equal air entry with crackles in the bilateral posterior bases CVS: S1 and S2 normal with no audible murmur, regular rhythm. ABDOMEN: No hepatosplenomegaly, normal bowel sounds, no guarding or rigidity. SPINE: No scoliosis or deformity SKIN: No rashes CENTRAL NERVOUS SYSTEM: No focal deficits, tone is normal in all 4 extremities. EXTREMITIES: There is trace peripheral edema. No clubbing, no cyanosis. Peripheral pulses are intact. - Labs CBC & Chem 7: 05/13/20 09:09 05/14/20 07:13 Labs: Abnormal Lab Results - Last 24 Hours (Table) 05/13/20 05/13/20 05/14/20 Range/Units 15:44 15:44 07:13 BUN 22 H (9-20) mg/dL Glucose 135 H (74-99) mg/dL Troponin I 2.160 H* (0.000-0.034) ng/mL Procalcitonin 0.45 H (0.02-0.09) ng/mL Urine Protein (Negative) Urine Blood (Negative) Hyaline Casts (0-2) /lpf Urine Mucus (None) /hpf 05/14/20 Range/Units 14:17 BUN (9-20) mg/dL Glucose (74-99) mg/dL Troponin I (0.000-0.034) ng/mL Procalcitonin (0.02-0.09) ng/mL Urine Protein Trace H (Negative) Urine Blood Trace H (Negative) Hyaline Casts 45 H (0-2) /lpf Urine Mucus Rare H (None) /hpf Microbiology - Last 24 Hours (Table) 05/13/20 10:07 Blood Culture - Preliminary Blood No Growth after 24 hours Assessment and Plan Assessment: 1 Acute exacerbation of systolic congestive heart failure, severely impaired left ventricular systolic function with ejection fraction 20-25% 2 Atrial fibrillation with rapid ventricular response, currently better rate control, anticoagulated with Xarelto 3 Acute hypoxic respiratory failure secondary to above 4 Troponin leak 5 Status post aortic valve replacement and repair of thoracic aortic aneurysm in 2015 6 Hypertension 7 Hyperlipidemia Plan: The patient was seen and evaluated by Dr. Dr. Lee. Continue the current treatment plan including diuretics Increase his activity as tolerated We'll continue to follow I, the cosigning physician, performed a history & physical examination of the patient. Lungs sounds with crackles in the bilateral posterior bases. Maintaining good O2 saturations in the 90s on 2 L/m per nasal cannula. I discussed the assessment and plan of care with my nurse practitioner, Michelle Cook. I attest to the above note as dictated by her.
--- NOTE | 2020-05-14 15:24 | PN ---
PROGRESS NOTE Mr. Barrow is an 80-year-old male with known history of aortic valve replacement, history of atrial fibrillation and history of coronary artery disease who presented with symptoms of progressive dyspnea and evidence of congestive heart failure. He is feeling much better today. His breathing is better. He is denying any chest pain. He denies any dizziness. He continues to be on the IV Cardizem because there was an episode of atrial fibrillation with rapid ventricular response. He had a repeat echocardiogram today that revealed impairment of left ventricular systolic function with ejection fraction 20% to 25% with normal functioning of his aortic valve bioprosthesis with mild to moderate mitral and mild tricuspid regurgitation. Otherwise, he is on Xarelto 20 mg daily, metoprolol tartrate 50 mg daily, lisinopril 5 mg daily, furosemide 40 mg IV q.12 hours, Lipitor 10 mg daily and aspirin once a day. PHYSICAL EXAMINATION: Blood pressure 108/60 with a heart rate in the 70s. LUNGS: Clear. HEART: Irregularly irregular. S1, S2. No S3, with systolic murmur, ejection type, heard at the base. No diastolic murmur. No rub. ABDOMEN: Soft, nontender. EXTREMITIES: No edema. LAB DATA: BUN and creatinine of 22 and 1.8. Potassium 3.8. His peak troponin is 2.1. He had lactic acid of 3.3 and his procalcitonin was 0.45. IMPRESSION: 1. Symptoms of congestive heart failure with severely impaired left ventricular systolic function, worse compared to baseline. 2. Mild elevation of the troponin with no symptoms of chest pain; could be related to a type 2 event related to the congestive heart failure. 3. Probable bronchitis. 4. History of aortic valve replacement. 5. History of atrial fibrillation, chronic, persistent, anticoagulated. RECOMMENDATIONS: I will stop the IV Cardizem. I will increase the dose of his beta reshma. I will continue on the IV diuretic for 24 hours. Depending on his progress, further recommendations will be made. The patient may require coronary angiography, but we will hold on that now pending his progress. MMODL / TANKN: [id number] /
[2020-05-14] MEDS: METOPROLOL TARTRATE 50 MG TAB PO SCH (19:57)
[2020-05-14 21:00] LABS: Glucose,Whole Blood 110 mg/dL (75-99)
[2020-05-15 05:58] LABS: Glucose,Whole Blood 111 mg/dL (75-99)
--- NOTE | 2020-05-15 08:01 | P.PN ---
Subjective Principal diagnosis: Atrial fibrillation with rapid ventricular response. The patient is noted for a trip fibrillation and has been on Cardizem drip for the last day or so. The patient is doing quite well. Appropriate diuresis also noted. No significant nausea or vomiting. He is able to converse appropriately. EF is 20-25. Objective - Vital Signs Vital signs: Vital Signs Temp 98.3 F 05/15/20 04:00 Pulse 111 H 05/15/20 04:00 Resp 18 05/15/20 04:00 BP 135/78 05/15/20 04:00 Pulse Ox 96 05/15/20 04:00 Intake & Output 05/14/20 05/15/20 05/15/20 18:59 06:59 18:59 Intake Total 511.167 Output Total 400 200 0 Balance 111.167 -200 0 Weight 89.1 kg 88.8 kg Intake: Intake, IV Titration 31.167 Amount Diltiazem 125 mg In 31.167 Sodium Chloride 0.9% 100 ml @ 5 MG/HR 5 mls/hr IV .Q24H [facility] Rx#:[id number] Oral 480 Output: Urine 400 200 0 Other: Voiding Method Toilet Toilet # Voids 3 0 - Constitutional General appearance: Present: no acute distress - EENT Eyes: Absent: abnormal pupil - Neck Neck: Absent: lymphadenopathy - Respiratory Respiratory: bilateral: CTA - Cardiovascular Rhythm: irregularly irregular Heart sounds: normal: S1, S2 Abnormal Heart Sounds: Absent: S3 Gallop - Gastrointestinal General gastrointestinal: Present: soft. Absent: tenderness - Integumentary Integumentary: Absent: cellulitis - Labs CBC & Chem 7: 05/13/20 09:09 05/14/20 07:13 Labs: Abnormal Lab Results - Last 24 Hours (Table) 05/14/20 05/14/20 05/15/20 Range/Units 14:17 20:54 05:51 POC Glucose (mg/dL) 110 H 111 H (75-99) mg/dL Urine Protein Trace H (Negative) Urine Blood Trace H (Negative) Hyaline Casts 45 H (0-2) /lpf Urine Mucus Rare H (None) /hpf Microbiology - Last 24 Hours (Table) 05/13/20 10:07 Blood Culture - Preliminary Blood No Growth after 24 hours Assessment and Plan (1) Atrial fibrillation with rapid ventricular response Current Visit: Yes Status: Acute Code(s): I48.91 - UNSPECIFIED ATRIAL FIBRILLATION SNOMED Code(s): 268995703668318 (2) Community acquired pneumonia Current Visit: Yes Status: Acute Code(s): J18.9 - PNEUMONIA, UNSPECIFIED ORGANISM SNOMED Code(s): 767757825 (3) Congestive heart failure Current Visit: Yes Status: Acute Code(s): I50.9 - HEART FAILURE, UNSPECIFIED SNOMED Code(s): 10313527 Plan: Continue diuresis. Continue rate control treatment. Check CBC and CMP in the a.m. Element of coronary myopathy. We'll continue to follow. Prognosis is guarded
[2020-05-15] MEDS: ASPIRIN 81 MG PO SCH (08:22)
[2020-05-15] MEDS: FUROSEMIDE 10 MG/ML 4 ML VIAL IV SCH ×2 (08:23→19:33)
[2020-05-15] MEDS: RIVAROXABAN 20 MG TAB PO SCH (08:23)
[2020-05-15] MEDS: ATORVASTATIN 10 MG TAB PO SCH (08:23)
[2020-05-15] MEDS: METOPROLOL TARTRATE 50 MG TAB PO SCH ×2 (08:23→19:33)
[2020-05-15] MEDS: lisinopriL 5 MG TAB PO SCH (08:23)
[2020-05-15 09:49] LABS: HCT 51.4 % (39.0-53.0); HGB 16.4 gm/dL (13.0-17.5); MCHC 31.9 g/dL (31.0-37.0); MCV 97.1 fL (80.0-100.0); Mean Platelet Volume 7.1; Platelet Count 230 k/uL (150-450); RBC 5.29 m/uL (4.30-5.90); RDW 13.3 % (11.5-15.5); WBC 13.1 k/uL (3.8-10.6)
[2020-05-15 09:51] LABS: Albumin 4.1 g/dL (3.5-5.0); Calcium 8.8 mg/dL (8.4-10.2); Potassium 3.4 mmol/L (3.5-5.1); Total Bilirubin 2.6 mg/dL (0.2-1.3); Total Protein 6.9 g/dL (6.3-8.2)
[2020-05-15] MEDS ORDERED: Potassium Replacement Protocol 1 EACH MISC MISCELLANE PRN (11:07)
[2020-05-15] MEDS: POTASSIUM CHLORIDE ER 20 MEQ TAB.ER PO SCH ×2 (11:29→13:59)
[2020-05-15 11:34] LABS: Glucose,Whole Blood 137 mg/dL (75-99)
--- NOTE | 2020-05-15 13:32 | P.PN ---
Subjective Progress Note Date: 05/15/20 Principal diagnosis: Acute exacerbation of systolic congestive heart failure The patient is seen today 05/14/2020 in follow-up on the selective care unit. He is currently sitting up at bedside. Awake and alert in no acute distress. Breathing quite a bit easier today compared to yesterday. He is maintaining good O2 saturations in the 90s on 2 L per nasal cannula. He is afebrile. He remains in atrial fibrillation with a controlled ventricular rate. Still some crackles in the bilateral bases. Currently on Lasix 40 mg every 12 hours. Blood culture reveals no growth to date. Sodium 139. Potassium 3.8. Creatinine 0.88. Peak troponin 2.16. Pro-calcitonin 0.45. He remains in a negative balance. The patient since 05/15/2020 follow-up on the selective care unit. He is currently sitting up at the bedside. Awake and alert in no acute distress. Denies any worsening shortness of breath, cough or congestion. He is maintaining good O2 saturation in the 90s on room air. He's been afebrile. Blood cultures reveal no growth. White count 13.1. Hemoglobin 16.4. Sodium 138. Potassium 3.4. Creatinine 1.14. He remains on IV diuretics. Anticoagulated with Xarelto. Objective - Vital Signs Vital signs: Vital Signs Temp 98 F 05/15/20 08:20 Pulse 90 05/15/20 11:25 Resp 16 05/15/20 11:25 BP 125/63 05/15/20 11:25 Pulse Ox 94 L 05/15/20 11:25 Intake & Output 05/14/20 05/15/20 05/15/20 18:59 06:59 18:59 Intake Total 511.167 Output Total 400 200 0 Balance 111.167 -200 0 Weight 89.1 kg 88.8 kg Intake: Intake, IV Titration 31.167 Amount Diltiazem 125 mg In 31.167 Sodium Chloride 0.9% 100 ml @ 5 MG/HR 5 mls/hr IV .Q24H [facility] Rx#:[id number] Oral 480 Output: Urine 400 200 0 Other: Voiding Method Toilet Toilet Toilet # Voids 3 0 - Exam GENERAL EXAM: Alert, active, very pleasant 80-year-old gentleman, on room air, comfortable in no apparent distress. HEAD: Normocephalic. EYES: Normal reaction of pupils, equal size. NOSE: Clear with pink turbinates. THROAT: No erythema or exudates. NECK: No masses, no JVD. CHEST: No chest wall deformity. LUNGS: Equal air entry with crackles in the bilateral posterior bases CVS: S1 and S2 normal with no audible murmur, regular rhythm. ABDOMEN: No hepatosplenomegaly, normal bowel sounds, no guarding or rigidity. SPINE: No scoliosis or deformity SKIN: No rashes CENTRAL NERVOUS SYSTEM: No focal deficits, tone is normal in all 4 extremities. EXTREMITIES: There is trace peripheral edema. No clubbing, no cyanosis. Peripheral pulses are intact. - Labs CBC & Chem 7: 05/15/20 08:47 05/15/20 08:47 Labs: Abnormal Lab Results - Last 24 Hours (Table) 05/14/20 05/14/20 05/15/20 Range/Units 14:17 20:54 05:51 WBC (3.8-10.6) k/uL Potassium (3.5-5.1) mmol/L Chloride (98-107) mmol/L Carbon Dioxide (22-30) mmol/L BUN (9-20) mg/dL Glucose (74-99) mg/dL POC Glucose (mg/dL) 110 H 111 H (75-99) mg/dL Total Bilirubin (0.2-1.3) mg/dL AST (17-59) U/L Urine Protein Trace H (Negative) Urine Blood Trace H (Negative) Hyaline Casts 45 H (0-2) /lpf Urine Mucus Rare H (None) /hpf 05/15/20 05/15/20 05/15/20 Range/Units 08:47 08:47 11:32 WBC 13.1 H (3.8-10.6) k/uL Potassium 3.4 L (3.5-5.1) mmol/L Chloride 97 L (98-107) mmol/L Carbon Dioxide 34 H (22-30) mmol/L BUN 35 H (9-20) mg/dL Glucose 155 H (74-99) mg/dL POC Glucose (mg/dL) 137 H (75-99) mg/dL Total Bilirubin 2.6 H (0.2-1.3) mg/dL AST 66 H (17-59) U/L Urine Protein (Negative) Urine Blood (Negative) Hyaline Casts (0-2) /lpf Urine Mucus (None) /hpf Microbiology - Last 24 Hours (Table) 05/13/20 10:07 Blood Culture - Preliminary Blood No Growth after 48 hours Assessment and Plan Assessment: 1 Acute exacerbation of systolic congestive heart failure, severely impaired left ventricular systolic function with ejection fraction 20-25% 2 Atrial fibrillation with rapid ventricular response, currently better rate control, anticoagulated with Xarelto 3 Acute hypoxic respiratory failure secondary to above 4 Troponin leak 5 Status post aortic valve replacement and repair of thoracic aortic aneurysm in 2014 6 Hypertension 7 Hyperlipidemia Plan: The patient was seen and evaluated by Dr. Lee. Continue the current treatment plan including diuretics Increase his activity as tolerated Cleared for discharge once cleared by cardiology We'll continue to follow I, the cosigning physician, performed a history & physical examination of the patient. Lungs sounds with crackles in the bilateral posterior bases. Maintaining good O2 saturations in the 90s on room air. I discussed the assessment and plan of care with my nurse practitioner, Michelle Cook. I attest to the above note as dictated by her.
[2020-05-15] MEDS: SPIRONOLACTONE 25 MG TAB PO SCH (14:00)
--- NOTE | 2020-05-15 16:18 | PN ---
PROGRESS NOTE Mr. Barrow is an 80-year-old male with known history of aortic valve replacement, history of percutaneous revascularization and chronic persistent atrial fibrillation who presented with symptoms of progressive dyspnea and congestive heart failure. He underwent an echocardiogram that showed normal functioning of his bioprosthetic valve but worsening of his ejection fraction to 20% to 25%, which usually runs in the range of 45%. He is feeling better overall. His breathing is better. He feels tired, but he has no chest pain. No dizziness. No palpitation. He continues to be at this time on aspirin once a day, Lipitor 10 mg daily, furosemide 40 mg IV q.12 hours, lisinopril 5 mg daily, metoprolol tartrate 50 mg twice a day and Xarelto 20 mg daily. PHYSICAL EXAMINATION: Blood pressure 124/60 with a heart rate in the 90s. LUNGS: A few crackles at the bases. HEART: Irregularly irregular. S1, S2. No S3, with a systolic murmur. No diastolic murmur. No rub. ABDOMEN: Soft, obese, nontender. EXTREMITIES: No significant edema. LAB DATA: Lab data revealed a BUN and creatinine of 35 and 1.12. Potassium is 3.4, hemoglobin of 16.4. His bilirubin is 2.6. Reviewing his old records, most of the time he had an elevated bilirubin. IMPRESSION: 1. Congestive heart failure with severe cardiomyopathy, worsened compared to the past. 2. Chronic persistent atrial fibrillation. 3. Status post aortic valve replacement. 4. Status post percutaneous revascularization. 5. Chronic persistent atrial fibrillation, anticoagulated. RECOMMENDATIONS: From the cardiac standpoint, I will add to his regimen Aldactone 25 mg daily. Continue IV diuretic for 24 hours and, depending on his symptoms and progress, further recommendations will be made. He will need to be re-evaluated as an outpatient regarding the status of his LV systolic function and make a decision if there is any evidence of progression of ischemia. MMODL / IJN: [id number] /
[2020-05-15 16:39] LABS: Glucose,Whole Blood 141 mg/dL (75-99)
[2020-05-15 20:03] LABS: Glucose,Whole Blood 163 mg/dL (75-99)
[2020-05-16 06:19] LABS: Glucose,Whole Blood 112 mg/dL (75-99)
[2020-05-16 08:18] VITALS: BP 112/71; PULSE 129; RESP 16; TEMP 97.8
[2020-05-16] MEDS: RIVAROXABAN 20 MG TAB PO SCH (08:21)
[2020-05-16] MEDS: FUROSEMIDE 10 MG/ML 4 ML VIAL IV SCH (08:21)
[2020-05-16] MEDS: lisinopriL 5 MG TAB PO SCH (08:21)
[2020-05-16] MEDS: ASPIRIN 81 MG PO SCH (08:21)
[2020-05-16] MEDS: METOPROLOL TARTRATE 50 MG TAB PO SCH (08:21)
[2020-05-16] MEDS: SPIRONOLACTONE 25 MG TAB PO SCH (08:21)
[2020-05-16] MEDS: ATORVASTATIN 10 MG TAB PO SCH (08:21)
--- NOTE | 2020-05-16 08:34 | P.DS ---
Providers Date of admission: 05/13/20 10:25 Attending physician: Sunny Pruitt Consults: 05/13/20 10:25 Consult Physician Routine Consulting Provider: Chi Lee Consult Reason/Comments: pleural effusion, pneumonia Do you want consulting provider notified?: Yes Consult Physician Routine Consulting Provider: Remi Olsen Consult Reason/Comments: CHF Do you want consulting provider notified?: Yes Primary care physician: Sunny Pruitt - Discharge Diagnosis(es) (1) Atrial fibrillation with rapid ventricular response Current Visit: Yes Status: Acute (2) Community acquired pneumonia Current Visit: Yes Status: Acute (3) Congestive heart failure Current Visit: Yes Status: Acute Hospital Course: The patient is admitted essentially for atrial for relational rapid ventricular response and cardiomyopathy. The patient was stabilized his rate is still slightly high but once cardiology clears the patient he will be having more of an outpatient treatment given his overall multiple comorbidities. Ejection fraction is around 25% but the patient is tolerating diet and voiding without difficulties. Patient will receive his flu shot prior to discharge. Patient Condition at Discharge: Stable Plan - Discharge Summary Discharge Rx Participant: Yes New Discharge Prescriptions: No Action Rivaroxaban [Xarelto] 20 mg PO DAILY Metoprolol Tartrate [Lopressor] 50 mg PO DAILY Rosuvastatin [Crestor] 5 mg PO DAILY Enalapril Maleate [Vasotec] 2.5 mg PO DAILY Aspirin [Adult Low Dose Aspirin EC] 81 mg PO DAILY Acetaminophen [Tylenol Arthritis] 650 mg PO HS PRN PRN Reason: Pain Albuterol Sulfate [Ventolin HFA] 2 puff INHALATION RT-QID PRN PRN Reason: Shortness Of Breath Amoxicillin/Potassium Clav [Augmentin 875-125 Tablet] 1 tab PO Q12HR Discharge Medication List Acetaminophen [Tylenol Arthritis] 650 mg PO HS PRN 10/18/18 [History] Aspirin [Adult Low Dose Aspirin EC] 81 mg PO DAILY 10/18/18 [History] Enalapril Maleate [Vasotec] 2.5 mg PO DAILY 10/18/18 [History] Metoprolol Tartrate [Lopressor] 50 mg PO DAILY 10/18/18 [History] Rivaroxaban [Xarelto] 20 mg PO DAILY 10/18/18 [History] Rosuvastatin [Crestor] 5 mg PO DAILY 10/18/18 [History] Albuterol Sulfate [Ventolin HFA] 2 puff INHALATION RT-QID PRN 05/13/20 [History] Amoxicillin/Potassium Clav [Augmentin 875-125 Tablet] 1 tab PO Q12HR 05/13/20 [History] Follow up Appointment(s)/Referral(s): Sunny Pruitt MD [Primary Care Provider] - 1-2 days Activity/Diet/Wound Care/Special Instructions: Pt would like flu vaccine at d/c.
[2020-05-16] MEDS ORDERED: INFLUENZA VACCINE (6 MOS+) 60 MCG/0.5 ML SYRINGE IM ONE (09:00)
--- NOTE | 2020-05-16 12:05 | PN ---
PROGRESS NOTE Mr. Barrow is an 80-year-old male with a history of coronary artery disease status post stenting, history of aortic valve replacement, history of chronic persistent atrial fibrillation who presented with symptoms of congestive heart failure. Has evidence of severely impaired left ventricular systolic function. He is feeling better today. He is ambulating. He is denying any chest pain. He denies any dizziness or palpitation. He denies any nausea. He continues to be on aspirin once a day, Lipitor 10 mg daily, Lasix 40 mg IV q.12 hours, Zestril 5 mg daily, metoprolol 50 mg twice a day, Xarelto 20 mg daily, spironolactone 25 mg daily. PHYSICAL EXAMINATION: Blood pressure 112/70 with a heart rate in 90s. LUNGS: Clear. HEART: Irregular, regular. S1-S2. No S3, with systolic murmur. No diastolic murmur, no rub. ABDOMEN: Soft, nontender, obese. EXTREMITIES: Trace to 1+ edema. LAB DATA: Revealed BUN and creatinine 35 and 1.12, potassium 3.4, hemoglobin of 16.4. IMPRESSION: 1. Congestive heart failure with severe cardiomyopathy, worsened compared to baseline. 2. Status post stenting. 3. History of aortic valve replacement. 4. Chronic persistent atrial fibrillation. RECOMMENDATION: Patient should be able to be discharged home today. I will switch him to oral diuretics. He will follow up as an outpatient in one week and depending on his progress, further recommendation will be made. MMODL / IJN: [id number] /
--- NOTE | 2020-05-16 14:50 | PN ---
PROGRESS NOTE PULMONARY/CRITICAL CARE PROGRESS NOTE: DATE OF SERVICE: May 16, 2020. HISTORY: This is a very pleasant 80-year-old male who was again seen on May 16. He is sitting at the bedside. He is hoping to potentially get discharged home today. He is not sure about that. The patient denies any chest pain or acute distress. He is short of breath on exertion. He denies any cough or phlegm production. He was admitted with a diagnosis of shortness of breath, atrial fibrillation, and CHF. We saw him initially in the emergency room. He is doing better. PHYSICAL EXAMINATION: VITAL SIGNS: Current vital signs are temperature 97.8. Heart rate 98. Respiratory rate 16, blood pressure 112/71, mean 84. Room air saturation 92%. GENERAL: Appears in no acute distress. HEENT: Examination is grossly unremarkable. Membranes are moist. No oral lesions. NECK: Supple. Full range of motion. No adenopathy. Neck veins are flat. CARDIOVASCULAR: Examination reveals irregular rhythm and rate. He is clearly in atrial fibrillation. S1, S2 normal. There is a soft systolic murmur. LUNGS: Reveal clear breath sounds. No wheezes, rhonchi, or crackles. Breath sounds equal bilaterally. ABDOMEN: Soft. Bowel sounds are noted. EXTREMITIES are intact. Minimal to no edema. SKIN: Without rash. NEUROLOGIC: Examination is brief but nonfocal. LABS: No new labs to report. Most recent glucose from today was 112. Microbiologic studies are negative. No chest x-ray to report. Medications are reviewed. ASSESSMENT: 1. Acute exacerbation of systolic congestive heart failure, with severely impaired left ventricular systolic function and ejection fraction of 20-25 percent. 2. Atrial fibrillation with RVR. 3. Acute hypoxemic respiratory failure secondary to 1 and 2. 4. Troponin leak. 5. Status post aortic valve replacement and repair of thoracic aortic aneurysm, 2015. 6. Hypertension. 7. Hyperlipidemia. PLAN: The patient is doing much better. We will see him in the office in followup. No additional recommendations are made. His overall prognosis is guarded. The patient is cleared for discharge from the pulmonary standpoint, should he be discharged. Additional recommendations and suggestions are forthcoming. A copy of today's note will go to the primary, Dr. Pruitt and also Cardiology. MMODL / IJN: [id number] /
[2020-05-16] MEDS ORDERED: FUROSEMIDE 40 MG TAB PO SCH (16:00)
--- NOTE | 2020-05-19 00:44 | CDI ---
Documentation Clarification Form Date: 05/19/2020 From: Varghese Teresa Phone: If you have a question about this query, please contact Esmer Broderick, International Account Manager at [phone] between 8am and 5pm. Admit Date: 05/13/2020 Discharge Date: 05/16/2020 Patient Name: Williams Barrow Visit Number: [id number] ATTENTION: The Clinical Documentation Specialists (CDI) and [facility] Coding Staff appreciate your assistance in clarifying documentation. Please respond to the clarification below the line at the bottom and electronically sign. The CDI & [facility] Coding staff will review the response and follow-up if needed. Please note: Queries are made part of the Legal Health Record. If you have any questions, please contact the author of this message via ITS. Dear Dr Edmond Correa MD., Per Dr. Pretty Khalil MD notes "Mild elevation of the troponin with no symptoms of chest pain; could be related to a type 2 event related to the congestive heart failure". Patient History/Risk Factors: CAD, Cardiomyopathy, HTN, Old [place] Troponin: Peak at 2.16H EKG Results:Repeat EKG at 855, atrial fibrillation with RVR, PVC, no ST segment elevation, rate of 109, QRS duration 118, QTC 422 DR. Pretty Khalil 05/13 Consult notes "Troponin elevation could be related to the heart failure.The possibility of primary ischemic event cannot be totally excluded". 05/14 notes "Mild elevation of the troponin with no symptoms of chest pain; could be related to a type 2 event related to the congestive heart failure"". In order to capture the severity of condition and necessary documentation specificity, please clarify Type 2 event is: Type 2 Myocardial infarction Ruled in Type 2 Myocardial infarction Ruled out-This is the correct dx MTDD
== END 2020-05-16 11:55 | disposition home or self-care (01) | DRG 291 ==
LOC: EC 08:30 → 3SCARD 10:25
PROVIDERS: ADMIT Family Medicine; ATTEND Family Medicine
DX: I11.0 Hypertensive heart disease with heart failure (principal); J96.01 Acute respiratory failure with hypoxia; I48.19 Other persistent atrial fibrillation; I50.23 Acute on chronic systolic (congestive) heart failure; I25.10 Atherosclerotic heart disease of native coronary artery without angina pectoris; Z96.659 Presence of unspecified artificial knee joint; I42.9 Cardiomyopathy, unspecified; E78.5 Hyperlipidemia, unspecified; I25.2 Old myocardial infarction; Z79.01 Long term (current) use of anticoagulants; Z79.82 Long term (current) use of aspirin; Z79.899 Other long term (current) drug therapy; Z90.49 Acquired absence of other specified parts of digestive tract; Z95.1 Presence of aortocoronary bypass graft; Z95.2 Presence of prosthetic heart valve; Z82.49 Family history of ischemic heart disease and other diseases of the circulatory system; Z83.79 Family history of other diseases of the digestive system
CPT/HCPCS: 36415; 71046; 80048; 80053; 81001; 83605; 83735; 83880; 84145; 84484; 85025; 85027; 85610; 85730; 87040; 90686; 93005; 93306; 96365; 96366; 96375; 96376; 99291

== ENCOUNTER 2020-07-10 08:47 | Inpatient (IN) | payer MEDICARE ==
[2020-07-10] MEDS ORDERED: METOPROLOL TARTRATE 5 MG/5 ML VIAL IVP STA ×2 (09:22→10:53)
--- NOTE | 2020-07-10 09:42 | XR ---
EXAMINATION TYPE: XR chest 2V DATE OF EXAM: 07/10/2020 COMPARISON: 05/13/2020 HISTORY: Shortness of breath TECHNIQUE: Frontal and lateral views of the chest are obtained. FINDINGS: Scattered senescent parenchymal changes noted. Hyperinflation compatible with COPD. Increased density right medial lung base may reflect developing infiltrate. Correlate clinically. Heart size is stable. Mediastinal structures are stable and grossly unremarkable. No evidence for hilar prominence. Degenerative changes dorsal spine. IMPRESSION: 1. Increased density right medial lung base may reflect developing infiltrate. Correlate clinically.
--- NOTE | 2020-07-10 09:46 | ED ---
General Adult HPI - General Source: patient, RN notes reviewed Mode of arrival: ambulatory Limitations: no limitations <Meng Yuen - Last Filed: 07/10/20 11:21> <Amanda Landa - Last Filed: 07/17/20 11:51> - General Chief complaint: Shortness of Breath Stated complaint: SOB Time Seen by Provider: 07/10/20 09:03 - History of Present Illness Initial comments: This is an 80-year-old male presents emergency Department with chief complaint of shortness of breath. Patient states that he feels that he is having a CHF exacerbation. Patient was recently admitted for similar reasons. Patient reports a slight cough, difficulty breathing and states he feels short of breath with short walks. Patient states she does have a history of A. fib on Xarelto. Patient states that he takes Lasix 20 mg twice a day. He states he did take his dose morning. Patient denies any fever, but states that he has some congestion was placed on Augmentin by his PCP yesterday. (Meng Yuen) - Related Data Home Medications Medication Instructions Recorded Confirmed Aspirin [Adult Low Dose Aspirin EC] 81 mg PO DAILY 10/18/18 07/10/20 Enalapril Maleate [Vasotec] 2.5 mg PO DAILY 10/18/18 07/10/20 Metoprolol Tartrate [Lopressor] 50 mg PO BID 10/18/18 07/10/20 Rivaroxaban [Xarelto] 20 mg PO DAILY 10/18/18 07/10/20 Albuterol Sulfate [Ventolin HFA] 2 puff INHALATION RT-QID PRN 05/13/20 07/10/20 Amoxicillin/Potassium Clav 1 tab PO Q12HR 05/13/20 07/10/20 [Augmentin 875-125 Tablet] Albuterol Nebulized [Ventolin 2.5 mg INHALATION RT-Q6H PRN 07/10/20 07/10/20 Nebulized] Cholecalciferol [Vitamin D3 (25 2,000 unit PO DAILY 07/10/20 07/10/20 Mcg = 1000 Iu)] Rosuvastatin Calcium [Crestor] 5 mg PO SUMOWEFRSA 07/10/20 07/10/20 Previous Rx's Medication Instructions Recorded Spironolactone [Aldactone] 25 mg PO DAILY #30 tab 05/16/20 Amiodarone [Cordarone] 400 mg PO BID #60 tab 07/14/20 Clopidogrel [Plavix] 75 mg PO DAILY #30 tab 07/14/20 Furosemide [Lasix] 80 mg PO BID@0900,1600 #60 tab 07/14/20 Allergies Allergy/AdvReac Type Severity Reaction Status Date / Time No Known Allergies Allergy Verified 07/10/20 14:45 Review of Systems ROS Other: All systems not noted in ROS Statement are negative. <Meng Yuen - Last Filed: 07/10/20 11:21> ROS Other: All systems not noted in ROS Statement are negative. <Amanda Landa - Last Filed: 07/17/20 11:51> ROS Statement: Those systems with pertinent positive or pertinent negative responses have been documented in the HPI. Past Medical History Past Medical History: Atrial Fibrillation, Coronary Artery Disease (CAD), Heart Failure, Hyperlipidemia, Hypertension, Myocardial Infarction (MT) Additional Past Medical History / Comment(s): mi x 3. fx rt hand Last Myocardial Infarction Date:: 2003 History of Any Multi-Drug Resistant Organisms: None Reported Past Surgical History: Cholecystectomy, Coronary Bypass/CABG, Heart Catheterization With Stent, Joint Replacement Additional Past Surgical History / Comment(s): ascending aortic and bicuspid valve replacement at [facility], 3 knee replacement, 3 stents total Past Anesthesia/Blood Transfusion Reactions: No Reported Reaction Date of Last Stent Placement:: 2008 Past Psychological History: No Psychological Hx Reported Smoking Status: Never smoker Past Alcohol Use History: Occasional Past Drug Use History: None Reported - Past Family History Mother Family Medical History: Coronary Artery Disease (CAD), Liver Disease Brother(s) Family Medical History: Congestive Heart Failure (CHF) Additional Family Medical History / Comment(s): heart transplant <Meng Yuen - Last Filed: 07/10/20 11:21> General Exam Limitations: no limitations General appearance: alert, in no apparent distress Head exam: Present: atraumatic, normocephalic, normal inspection Eye exam: Present: normal appearance, PERRL, EOMI. Absent: scleral icterus, conjunctival injection, periorbital swelling ENT exam: Present: normal exam, normal oropharynx, mucous membranes moist, TM's normal bilaterally, normal external ear exam Neck exam: Present: normal inspection. Absent: tenderness, meningismus, lymphadenopathy Respiratory exam: Present: respiratory distress (Mild), decreased breath sounds. Absent: normal lung sounds bilaterally, wheezes, rales, rhonchi, stridor Cardiovascular Exam: Present: tachycardia, irregular rhythm, normal heart sounds. Absent: normal rhythm, systolic murmur, diastolic murmur, rubs, gallop, clicks GI/Abdominal exam: Present: soft, normal bowel sounds. Absent: distended, tenderness, guarding, rebound, rigid Extremities exam: Absent: pedal edema, calf tenderness Neurological exam: Present: alert, oriented X3 Skin exam: Present: warm, dry, intact, normal color. Absent: rash <Meng Yuen - Last Filed: 07/10/20 11:21> Course Vital Signs 07/10/20 07/10/20 07/10/20 08:53 09:48 10:48 Temperature 98.1 F 98.5 F 98 F Pulse Rate 106 H 100 117 H Respiratory 26 H 18 16 Rate Blood Pressure 175/103 130/101 134/108 O2 Sat by Pulse 89 L 95 94 L Oximetry 07/10/20 07/10/20 11:38 13:00 Temperature Pulse Rate 112 H 84 Respiratory 18 18 Rate Blood Pressure 147/111 147/111 O2 Sat by Pulse 94 L 96 Oximetry EKG Findings - EKG Comments: EKG Findings:: EKG performed at 9:080 with RVR rate of 113 QRS 114 QT status QTC 348/477 <Meng Yuen - Last Filed: 07/10/20 11:21> Medical Decision Making - Lab Data Result diagrams: 07/10/20 09:28 07/10/20 09:28 <Meng Yuen - Last Filed: 07/10/20 11:21> - Lab Data Result diagrams: 07/13/20 07:24 07/14/20 09:52 <Amanda Landa - Last Filed: 07/17/20 11:51> - Medical Decision Making 80-year-old male presented for dyspnea. Patient's found to have right-sided pneumonia, A. fib RVR. Patient is currently on a virus negative. Patient does not have any overt signs of failure. Patient will be admitted for IV antibiotics, further rate control. (Meng Yuen) I was available for consultation in the emergency department. The history and physical exam were done by the midlevel provider. I was consulted for this patients care. I reviewed the case with the midlevel provider and based on their presentation of the patient, I agree with the assessment, medical decision making and plan of care as documented. Chart was dictated using [employer] dictation software. Attempts were made to correct any dictation errors however some typographical errors may persist. Patient seen during the Covid-19 pandemic. (Amanda Landa) - Lab Data Lab Results 07/10/20 07/10/20 07/10/20 Range/Units 09:28 09:28 09:28 WBC 14.4 H (3.8-10.6) k/uL RBC 5.02 (4.30-5.90) m/uL Hgb 15.9 (13.0-17.5) gm/dL Hct 48.9 (39.0-53.0) % MCV 97.5 (80.0-100.0) fL MCH 31.7 (25.0-35.0) pg MCHC 32.5 (31.0-37.0) g/dL RDW 13.6 (11.5-15.5) % Plt Count 215 (150-450) k/uL MPV 7.3 Neutrophils % 86 % Lymphocytes % 5 % Monocytes % 7 % Eosinophils % 0 % Basophils % 0 % Neutrophils # 12.3 H (1.3-7.7) k/uL Lymphocytes # 0.8 L (1.0-4.8) k/uL Monocytes # 1.1 H (0-1.0) k/uL Eosinophils # 0.1 (0-0.7) k/uL Basophils # 0.0 (0-0.2) k/uL PT 17.2 H (9.0-12.0) sec INR 1.8 H (<1.2) APTT 38.1 H (22.0-30.0) sec D-Dimer (<0.60) mg/L FEU Sodium 135 L (137-145) mmol/L Potassium 4.9 (3.5-5.1) mmol/L Chloride 101 (98-107) mmol/L Carbon Dioxide 24 (22-30) mmol/L Anion Gap 10 mmol/L BUN 20 (9-20) mg/dL Creatinine 0.83 (0.66-1.25) mg/dL Est GFR (CKD-EPI)AfAm >90 (>60 ml/min/1.73 sqM) Est GFR (CKD-EPI)NonAf 83 (>60 ml/min/1.73 sqM) Glucose 155 H (74-99) mg/dL Plasma Lactic Acid Davion (0.7-2.0) mmol/L Calcium 9.7 (8.4-10.2) mg/dL Magnesium 1.9 (1.6-2.3) mg/dL Total Bilirubin 3.5 H (0.2-1.3) mg/dL AST 48 (17-59) U/L ALT 30 (4-49) U/L Alkaline Phosphatase 36 L (38-126) U/L Troponin I (0.000-0.034) ng/mL NT-Pro-B Natriuret Pep pg/mL Total Protein 7.7 (6.3-8.2) g/dL Albumin 4.5 (3.5-5.0) g/dL Coronavirus (PCR) (Not Detectd) 07/10/20 07/10/20 07/10/20 Range/Units 09:28 09:28 09:28 WBC (3.8-10.6) k/uL RBC (4.30-5.90) m/uL Hgb (13.0-17.5) gm/dL Hct (39.0-53.0) % MCV (80.0-100.0) fL MCH (25.0-35.0) pg MCHC (31.0-37.0) g/dL RDW (11.5-15.5) % Plt Count (150-450) k/uL MPV Neutrophils % % Lymphocytes % % Monocytes % % Eosinophils % % Basophils % % Neutrophils # (1.3-7.7) k/uL Lymphocytes # (1.0-4.8) k/uL Monocytes # (0-1.0) k/uL Eosinophils # (0-0.7) k/uL Basophils # (0-0.2) k/uL PT (9.0-12.0) sec INR (<1.2) APTT (22.0-30.0) sec D-Dimer (<0.60) mg/L FEU Sodium (137-145) mmol/L Potassium (3.5-5.1) mmol/L Chloride (98-107) mmol/L Carbon Dioxide (22-30) mmol/L Anion Gap mmol/L BUN (9-20) mg/dL Creatinine (0.66-1.25) mg/dL Est GFR (CKD-EPI)AfAm (>60 ml/min/1.73 sqM) Est GFR (CKD-EPI)NonAf (>60 ml/min/1.73 sqM) Glucose (74-99) mg/dL Plasma Lactic Acid Davion 1.7 (0.7-2.0) mmol/L Calcium (8.4-10.2) mg/dL Magnesium (1.6-2.3) mg/dL Total Bilirubin (0.2-1.3) mg/dL AST (17-59) U/L ALT (4-49) U/L Alkaline Phosphatase (38-126) U/L Troponin I <0.012 (0.000-0.034) ng/mL NT-Pro-B Natriuret Pep 4690 pg/mL Total Protein (6.3-8.2) g/dL Albumin (3.5-5.0) g/dL Coronavirus (PCR) (Not Detectd) 07/10/20 07/10/20 Range/Units 09:28 09:28 WBC (3.8-10.6) k/uL RBC (4.30-5.90) m/uL Hgb (13.0-17.5) gm/dL Hct (39.0-53.0) % MCV (80.0-100.0) fL MCH (25.0-35.0) pg MCHC (31.0-37.0) g/dL RDW (11.5-15.5) % Plt Count (150-450) k/uL MPV Neutrophils % % Lymphocytes % % Monocytes % % Eosinophils % % Basophils % % Neutrophils # (1.3-7.7) k/uL Lymphocytes # (1.0-4.8) k/uL Monocytes # (0-1.0) k/uL Eosinophils # (0-0.7) k/uL Basophils # (0-0.2) k/uL PT (9.0-12.0) sec INR (<1.2) APTT (22.0-30.0) sec D-Dimer 0.65 H (<0.60) mg/L FEU Sodium (137-145) mmol/L Potassium (3.5-5.1) mmol/L Chloride (98-107) mmol/L Carbon Dioxide (22-30) mmol/L Anion Gap mmol/L BUN (9-20) mg/dL Creatinine (0.66-1.25) mg/dL Est GFR (CKD-EPI)AfAm (>60 ml/min/1.73 sqM) Est GFR (CKD-EPI)NonAf (>60 ml/min/1.73 sqM) Glucose (74-99) mg/dL Plasma Lactic Acid Davion (0.7-2.0) mmol/L Calcium (8.4-10.2) mg/dL Magnesium (1.6-2.3) mg/dL Total Bilirubin (0.2-1.3) mg/dL AST (17-59) U/L ALT (4-49) U/L Alkaline Phosphatase (38-126) U/L Troponin I (0.000-0.034) ng/mL NT-Pro-B Natriuret Pep pg/mL Total Protein (6.3-8.2) g/dL Albumin (3.5-5.0) g/dL Coronavirus (PCR) Not Detected (Not Detectd) Critical Care Time Critical Care Time: Yes Total Critical Care Time: 35 <Meng Yuen - Last Filed: 07/10/20 11:21> Critical Care Time: Total of 35 minutes of critical care time were used initially evaluated patient, reviewed. History according labs EKG and chest x-ray. Patient is found to have A. fib RVR. Patient was given 2 doses of Lopressor. Patient we placed on Cardizem if no further improvement. Patient will be admitted for IV antibiotics. (Meng Yuen) Disposition <Meng Yuen - Last Filed: 07/10/20 11:21> <Amanda Landa - Last Filed: 07/17/20 11:51> Clinical Impression: Atrial fibrillation with rapid ventricular response, Pneumonia Disposition: ADMITTED IP TO THIS HOSP Condition: Fair
[2020-07-10 09:54] LABS: Basophils % (A) 0 %; Eosinophils # (A) 0.1 k/uL (0-0.7); Eosinophils % (A) 0 %; HCT 48.9 % (39.0-53.0); HGB 15.9 gm/dL (13.0-17.5); Lymphocytes # (A) 0.8 k/uL (1.0-4.8); Lymphocytes % (A) 5 %; MCH 31.7 pg (25.0-35.0); MCHC 32.5 g/dL (31.0-37.0); MCV 97.5 fL (80.0-100.0); Mean Platelet Volume 7.3; Monocytes # (A) 1.1 k/uL (0-1.0); Monocytes % (A) 7 %; Neutrophils # (A) 12.3 k/uL (1.3-7.7); Neutrophils % (A) 86 %; Platelet Count 215 k/uL (150-450); RBC 5.02 m/uL (4.30-5.90); RDW 13.6 % (11.5-15.5); WBC 14.4 k/uL (3.8-10.6)
[2020-07-10 09:59] LABS: INR 1.8 (<1.2); Partial Thromboplastin Time 38.1 sec (22.0-30.0); Prothrombin Time 17.2 sec (9.0-12.0)
[2020-07-10 10:00] LABS: ALT 30 U/L (4-49); African American GFR (CKD) >90 (>60 ml/min/1.73 sqM); Albumin 4.5 g/dL (3.5-5.0); Anion Gap 10 mmol/L; Blood Urea Nitrogen 20 mg/dL (9-20); Calcium 9.7 mg/dL (8.4-10.2); Carbon Dioxide 24 mmol/L (22-30); Chloride 101 mmol/L (98-107); Glucose 155 mg/dL (74-99); Non-African American GFR(CKD) 83 (>60 ml/min/1.73 sqM); Sodium 135 mmol/L (137-145); Total Bilirubin 3.5 mg/dL (0.2-1.3); Total Protein 7.7 g/dL (6.3-8.2)
[2020-07-10 10:11] LABS: Potassium 4.9 mmol/L (3.5-5.1)
[2020-07-10 10:12] LABS: AST 48 U/L (17-59); Alkaline Phosphatase 36 U/L (38-126); Magnesium 1.9 mg/dL (1.6-2.3)
[2020-07-10] MEDS ORDERED: AZITHROMYCIN 500 MG in SODIUM CHLORIDE 0.9% 250 ML IVPB STA (11:23)
[2020-07-10] MEDS ORDERED: PNEUMONIA PROTOCOL UTILIZED 1 EACH MISC PO PRN (11:29)
[2020-07-10] MEDS ORDERED: IPRATROPIUM-ALBUTEROL 3 ML NEB INHALATION PRN (11:29)
[2020-07-10] MEDS ORDERED: DILTIAZEM 125 MG in SODIUM CHLORIDE 0.9% 100 ML IV SCH (11:45)
[2020-07-10] MEDS ORDERED: ALBUTEROL HFA INHALER INHALATION PRN (18:21)
[2020-07-10] MEDS ORDERED: ALBUTEROL NEBULIZED 2.5 MG/3 ML INHALATION PRN (18:21)
[2020-07-10] MEDS: FUROSEMIDE 10 MG/ML 4 ML VIAL IV SCH (18:47)
[2020-07-10] MEDS: METOPROLOL TARTRATE 50 MG TAB PO SCH (19:51)
[2020-07-10] MEDS ORDERED: FUROSEMIDE 40 MG TAB PO SCH (21:00)
--- NOTE | 2020-07-10 22:21 | HP ---
HISTORY AND PHYSICAL I am covering for Dr. Pruitt. CHIEF COMPLAINTS: Shortness of breath and palpitation. HISTORY OF PRESENT ILLNESS: This 80-year-old gentleman with a past medical history of CAD, CHF with chronic systolic dysfunction, ejection fraction 20-25 percent, history of atrial fibrillation, hypertension, hyperlipidemia being followed by Dr. Pruitt in the outpatient setting was complaining of shortness of breath. The patient also had some palpitations also. The patient thought the patient had CHF exacerbation. Patient recently started on Augmentin p.o. in the outpatient setting because of concerns of respiratory infection. The patient was found to have some evidence of CHF. NT proBNP was elevated. The patient also was found to have atrial fibrillation with fast ventricular rate. Cardizem drip was initiated with 5 mg at maintenance. Heart rate in the 80s at this time. Patient being closely monitored. COVID-19 is negative. There is no history of fever, rigors. No history of headache, loss of consciousness, seizures at this time. Chest x-ray as reported as probably right lower pneumonia. PAST MEDICAL HISTORY: History of atrial fibrillation, CAD, CHF, hypertension, hyperlipidemia, history of myocardial infarction, CAD/CABG stent. MEDICATIONS: Home medications: Albuterol nebulizer, Aldactone, Crestor, vitamin D3, Xarelto, Lopressor. Lasix aseptic, aspirin, Augmentin and Ventolin HFA. ALLERGIES: None FAMILY HISTORY: Family history of coronary artery disease, liver disease, and heart transplant in the family. SOCIAL HISTORY: No history of smoking. Occasional alcohol intake. REVIEW OF SYSTEMS: ENT: No diminished vision. No diminished hearing. Cardiovascular as mentioned earlier. Respiratory: As mentioned earlier. GI no nausea or vomiting. no dysuria. NERVOUS SYSTEM: No numbness or weakness. ALLERGY/IMMUNOLOGY: No asthma or hayfever. MUSCULOSKELETAL as mentioned earlier. HEMATOLOGY/ONCOLOGY: No history of anemia. ENDOCRINE: No history of diabetes or hypothyroidism. CONSTITUTIONAL: As mentioned earlier. DERMATOLOGY: Negative. RHEUMATOLOGY negative. PSYCHIATRY as mentioned earlier. PHYSICAL EXAM: Patient is alert, oriented x3. Pulse is 86. Blood pressure 125/81, respiration 18, temperature 98.4, pulse ox 94% on room air. HEENT: Conjunctivae normal. Oral mucosa moist. NECK is no jugular venous distention. No carotid bruit. No lymph node enlargement. CARDIOVASCULAR: S1, S2 muffled. No S3, no S4. RESPIRATIONS: Breath sounds diminished in the bases. A few scattered rhonchi and crackles. Expiratory wheezing also present. ABDOMEN: Soft, obese, nontender. No mass palpable. LEGS: Minimal edema. NERVOUS SYSTEM: Higher functions as mentioned earlier. Moves all 4 limbs. No focal motor or sensory deficits. LYMPHATICS: No lymph nodes palpable in neck, axilla or groin. SKIN: No ulcer, rash or bleeding. JOINTS: No active deforming arthropathy. LABS: At this time, WBC 14.2, hemoglobin 15.9, INR 1.8, sodium 135. NT proBNP 4690, Covid-19 negative. Chest x-ray, EKG personally reviewed. ASSESSMENT: 1. Congestive heart failure acute exacerbation with acute on chronic systolic dysfunction, ejection fraction 20-25 percent with possibly ischemic cardiomyopathy. 2. Atrial fibrillation with fast ventricular rate. 3. Chronic atrial fibrillation. 4. Possible right lower lobe pneumonia community-acquired. 5. Higher bilirubin. 6. History of coronary artery disease. 7. History of hypertension. 8. Hyperlipidemia. 9. Myocardial infarction. 10.History of cholecystectomy. 11.History of CAD, CABG stent. 12.History of degenerative joint disease. 13.History of ascending aortic and bicuspid valve replacement at [facility]. 14.History of knee replacements. 15.Obesity with body mass index of 32.6. RECOMMENDATIONS AND DISCUSSION: This 80-year-old gentleman who presented with multiple complex medical issues, we will monitor the patient closely, continue the current medications, management and symptomatic treatment. We will also continue with Cardizem. Otherwise, initiate IV Lasix and also continue with empiric antibiotics. Cardiology consultation. Resume the home medications. DVT prophylaxis. Prognosis guarded because of multiple complex medical conditions. Further recommendations to follow. I would also recommend consultation with Dr. Potts. We will also obtain a fraction of the bilirubin to ascertain the exact cause of hyperbilirubinemia most likely benign. We will continue to follow. I would recommend close followup with Dr. Pruitt in the outpatient setting. MMODL / IJN: [id number] /
[2020-07-11] MEDS: ATORVASTATIN 10 MG TAB PO SCH (08:44)
[2020-07-11] MEDS: ASPIRIN 81 MG PO SCH (08:44)
[2020-07-11] MEDS: RIVAROXABAN 20 MG TAB PO SCH (08:44)
[2020-07-11] MEDS: FUROSEMIDE 10 MG/ML 4 ML VIAL IV SCH ×2 (08:44→19:38)
[2020-07-11] MEDS: METOPROLOL TARTRATE 50 MG TAB PO SCH (08:45)
[2020-07-11] MEDS: CHOLECALCIFEROL 1,000 UNIT TAB PO SCH (08:45)
[2020-07-11] MEDS: lisinopriL 5 MG TAB PO SCH (08:45)
[2020-07-11] MEDS: SPIRONOLACTONE 25 MG TAB PO SCH (08:45)
[2020-07-11 09:40] LABS: Basophils # (A) 0.1 k/uL (0-0.2); Basophils % (A) 1 %; Eosinophils # (A) 0.1 k/uL (0-0.7); Eosinophils % (A) 1 %; HCT 43.8 % (39.0-53.0); HGB 14.6 gm/dL (13.0-17.5); Lymphocytes # (A) 0.8 k/uL (1.0-4.8); Lymphocytes % (A) 6 %; MCH 32.5 pg (25.0-35.0); MCHC 33.3 g/dL (31.0-37.0); MCV 97.6 fL (80.0-100.0); Mean Platelet Volume 7.4; Monocytes # (A) 0.8 k/uL (0-1.0); Monocytes % (A) 6 %; Neutrophils # (A) 10.8 k/uL (1.3-7.7); Neutrophils % (A) 85 %; Platelet Count 157 k/uL (150-450); RBC 4.49 m/uL (4.30-5.90); WBC 12.7 k/uL (3.8-10.6)
[2020-07-11] MEDS ORDERED: METOPROLOL TARTRATE 25 MG TAB PO STA (09:52)
[2020-07-11 09:53] LABS: INR 1.3 (<1.2); Prothrombin Time 13.1 sec (9.0-12.0)
[2020-07-11 10:04] LABS: Albumin 4.2 g/dL (3.5-5.0); Bilirubin, Delta 0.3 mg/dL (0.0-0.2); Bilirubin,Unconjugated 2.7 mg/dL (0.0-1.1); Calcium 9.2 mg/dL (8.4-10.2); Potassium 4.7 mmol/L (3.5-5.1); Total Protein 7.1 g/dL (6.3-8.2)
--- NOTE | 2020-07-11 11:34 | XR ---
EXAMINATION TYPE: XR chest 1V portable DATE OF EXAM: 07/11/2020 CLINICAL HISTORY: Pneumonia. TECHNIQUE: Portable frontal view of the chest. COMPARISON: 07/10/2020 chest radiograph FINDINGS: Sternotomy wires. Low lung volumes accentuates the cardiac silhouette and lung markings. C ardiomegaly redemonstrated. No pleural effusion. No pneumothorax. Redemonstrated right medial basilar opacity. IMPRESSION: Redemonstrated right medial basilar opacity. Findings may represent airspace disease emery mariama prominent lung markings due to low lung volumes. Recommend clinical correlation.
[2020-07-11] MEDS: AZITHROMYCIN 500 MG TAB PO SCH (12:04)
--- NOTE | 2020-07-11 12:51 | P.CRDCN ---
History of Present Illness Consult date: 07/11/20 History of present illness: CHIEF COMPLAINT: A. fib with RVR HISTORY OF PRESENT ILLNESS: This is a 80-year old male with a past medical history significant for coronary artery disease with previous PCI, paroxysmal atrial fibrillation, history of aortic valve replacement, hypertension and hyperlipidemia. We have been asked to see the patient in consultation for A. fib with RVR. Patient initially presented to emergency room with a chief complaint of shortness of breath. Patient had EKG completed revealing A. fib with RVR. Patient was started on a Cardizem drip. At the time of examination this morning, the patients heart rate is controlled. He denies chest pain or pressure. Blood pressure stable. DIAGNOSTICS: EKG reveals A. fib with RVR Chest xray increased density right medial lung base may reflect developing infiltrate. Laboratory data: WBC 12.7. Hemoglobin 14.6. Platelet count 157. Sodium 135. Potassium 4.7. BUN 24. Creatinine 0.94. Lactic acid 1.7. Troponin negative 1. BNP 4690. Current home cardiac medications include Aldactone 25 mg daily, Crestor 5 mg Tuesday, Xarelto 20mg daily, metoprolol 50mg twice a day, Lasix 40mg twice a day, Vasotec 2.5 mg daily, and aspirin 81 mg daily Echocardiogram completed in April 2020 revealed ejection fraction 20-25%, mild to moderate mitral regurgitation, mild tricuspid regurgitation, moderate pulmonary hypertension REVIEW OF SYSTEMS: At the time of my exam: CONSTITUTIONAL: Denies fever or chills. HEENT: Denies blurred vision, vision changes, or eye pain. Denies hemoptysis CARDIOVASCULAR: Denies chest pain, orthopnea, PND or palpitations RESPIRATORY: Reports mild shortness of breath. GASTROINTESTINAL: Denies abdominal pain. Denies nausea or vomiting. HEMATOLOGIC: Denies bleeding disorders. GENITOURINARY: Denies any blood in urine. SKIN: Denies pruitis. Denies rash. PHYSICAL EXAM: VITAL SIGNS: Reviewed. GENERAL: Well-developed in no acute distress. HEENT: Head is normocephalic. Pupils are equal, round. Sclerae anicteric. Mucous membranes of the mouth are moist. Neck supple. No JVD or thyromegaly LUNGS: Respirations even and unlabored. Lungs diminished. HEART: Irregular rate and rhythm. S1 and S2 heard. ABDOMEN: Soft. Nondistended. Nontender. EXTREMITIES: Normal range of motion. No clubbing or cyanosis. Peripheral pulses intact. Trace bilateral lower extremity edema NEUROLOGIC: Awake and alert. Oriented x 3. ASSESSMENT: Shortness of breath Paroxysmal atrial fibrillation with RVR Acute exacerbation of chronic systolic congestive heart failure, EF 20-25% Coronary artery disease with previous PCI History of aortic valve replacement Hypertension Hyperlipidemia PLAN: Continue Xarelto for anticoagulation Increase metoprolol to 75 mg twice a day Discontinue Cardizem drip Continue IV Lasix Daily weights Accurate I&O No need to repeat echocardiogram as it was recently completed in April 2020 Further recommendations pending patient course Nurse practitioner note has been reviewed by physician. Signing provider agrees with the documented findings, assessment, and plan of care. Past Medical History Past Medical History: Atrial Fibrillation, Coronary Artery Disease (CAD), Heart Failure, Hyperlipidemia, Hypertension, Myocardial Infarction ([place]) Additional Past Medical History / Comment(s): mi x 3. fx rt hand Last Myocardial Infarction Date:: 2003 History of Any Multi-Drug Resistant Organisms: None Reported Past Surgical History: Cholecystectomy, Coronary Bypass/CABG, Heart Catheterization With Stent, Joint Replacement Additional Past Surgical History / Comment(s): ascending aortic and bicuspid valve replacement at [facility] , 3 knee replacement, 3 stents total Past Anesthesia/Blood Transfusion Reactions: No Reported Reaction Date of Last Stent Placement:: 2008 Past Psychological History: No Psychological Hx Reported Smoking Status: Never smoker Past Alcohol Use History: Occasional Past Drug Use History: None Reported - Past Family History Mother Family Medical History: Coronary Artery Disease (CAD), Liver Disease Brother(s) Family Medical History: Congestive Heart Failure (CHF) Additional Family Medical History / Comment(s): heart transplant Medications and Allergies Home Medications Medication Instructions Recorded Confirmed Type Aspirin [Adult Low Dose Aspirin EC] 81 mg PO DAILY 10/18/18 07/10/20 History Enalapril Maleate [Vasotec] 2.5 mg PO DAILY 10/18/18 07/10/20 History Metoprolol Tartrate [Lopressor] 50 mg PO BID 10/18/18 07/10/20 History Rivaroxaban [Xarelto] 20 mg PO DAILY 10/18/18 07/10/20 History Albuterol Sulfate [Ventolin HFA] 2 puff INHALATION RT-QID PRN 05/13/20 07/10/20 History Amoxicillin/Potassium Clav 1 tab PO Q12HR 05/13/20 07/10/20 History [Augmentin 875-125 Tablet] Spironolactone [Aldactone] 25 mg PO DAILY #30 tab 05/16/20 07/10/20 Rx Albuterol Nebulized [Ventolin 2.5 mg INHALATION RT-Q6H PRN 07/10/20 07/10/20 History Nebulized] Cholecalciferol [Vitamin D3 (25 2,000 unit PO DAILY 07/10/20 07/10/20 History Mcg = 1000 Iu)] Furosemide [Lasix] 40 mg PO BID 07/10/20 07/10/20 History Rosuvastatin Calcium [Crestor] 5 mg PO SUMOWEFRSA 07/10/20 07/10/20 History Allergies Allergy/AdvReac Type Severity Reaction Status Date / Time No Known Allergies Allergy Verified 07/10/20 14:45 Physical Exam Vitals: Vital Signs Temp Pulse Pulse Resp BP BP BP 07/11/20 12:03 76 16 107/68 07/11/20 08:00 98.3 F 96 16 117/64 07/11/20 02:59 71 17 105/58 07/10/20 23:18 72 16 115/74 07/10/20 19:57 98 F 89 17 130/78 07/10/20 15:26 98.4 F 86 18 124/81 07/10/20 13:00 84 18 147/111 Pulse Ox 07/11/20 12:03 95 07/11/20 08:00 96 07/11/20 02:59 97 07/10/20 23:18 95 07/10/20 19:57 95 07/10/20 15:26 94 L 07/10/20 13:00 96 Intake and Output 07/10/20 07/11/20 07/11/20 22:59 06:59 14:59 Intake Total 173.917 0 240 Output Total 1000 Balance -826.083 0 240 Intake: Intake, IV Titration 53.917 0 Amount Diltiazem 125 mg In 53.917 0 Sodium Chloride 0.9% 100 ml @ 5 MG/HR 5 mls/hr IV .Q24H [facility] Rx#:[id number] Oral 120 240 Output: Urine 1000 Other: # Voids 1 # Bowel Movements 1 Weight 86.183 kg 86.5 kg Results 07/11/20 08:17 07/11/20 08:17 Cardiac Enzymes 07/11/20 Range/Units 08:17 AST 44 (17-59) U/L Coagulation 07/11/20 Range/Units 08:17 PT 13.1 H (9.0-12.0) sec CBC 07/11/20 Range/Units 08:17 WBC 12.7 H (3.8-10.6) k/uL RBC 4.49 (4.30-5.90) m/uL Hgb 14.6 (13.0-17.5) gm/dL Hct 43.8 (39.0-53.0) % Plt Count 157 (150-450) k/uL Comprehensive Metabolic Panel 07/11/20 Range/Units 08:17 Sodium 135 L (137-145) mmol/L Potassium 4.7 (3.5-5.1) mmol/L Chloride 100 (98-107) mmol/L Carbon Dioxide 27 (22-30) mmol/L BUN 24 H (9-20) mg/dL Creatinine 0.94 (0.66-1.25) mg/dL Glucose 176 H (74-99) mg/dL Calcium 9.2 (8.4-10.2) mg/dL Unconjugated Bilirubin 2.7 H (0.0-1.1) mg/dL AST 44 (17-59) U/L ALT 29 (4-49) U/L Alkaline Phosphatase 43 (38-126) U/L Total Protein 7.1 (6.3-8.2) g/dL Albumin 4.2 (3.5-5.0) g/dL Current Medications Generic Name Dose Route Start Last Admin Trade Name Freq PRN Reason Stop Dose Admin Albuterol/Ipratropium 3 ml 07/10/20 11:29 Ipratropium-Albuterol 3 Ml Neb INHALATION RT-Q4H PRN shortness of breath Aspirin 81 mg 07/11/20 09:00 07/11/20 08:44 Aspirin 81 Mg PO 81 mg DAILY JOSEY Administration Atorvastatin Calcium 10 mg 07/11/20 09:00 07/11/20 08:44 Atorvastatin 10 Mg Tab PO 10 mg SUMOWEFRSA JOSEY Administration Azithromycin 500 mg 07/11/20 12:00 07/11/20 12:04 Azithromycin 500 Mg Tab PO 500 mg DAILY@1200 JOSEY Administration Cholecalciferol 2,000 unit 07/11/20 09:00 07/11/20 08:45 Cholecalciferol 1,000 Unit Tab PO 2,000 unit DAILY JOSEY Administration Furosemide 40 mg 07/10/20 18:30 07/11/20 08:44 Furosemide 10 Mg/Ml 4 Ml Vial IV 40 mg Q12HR JOSEY Administration Ceftriaxone Sodium 2 gm/ 50 mls @ 100 mls/hr 07/11/20 09:00 07/11/20 08:44 Sodium Chloride IVPB 07/13/20 09:01 100 mls/hr Q24HR JOSEY Administration Lisinopril 5 mg 07/11/20 09:00 07/11/20 08:45 Lisinopril 5 Mg Tab PO 5 mg DAILY JOSEY Administration Metoprolol Tartrate 75 mg 07/11/20 21:00 Metoprolol Tartrate 25 Mg Tab PO BID [facility] Miscellaneous Information 1 each 07/10/20 11:29 Pneumonia Protocol Utilized 1 Each Misc PO ONCE PRN Per Protocol Rivaroxaban 20 mg 07/11/20 09:00 07/11/20 08:44 Rivaroxaban 20 Mg Tab PO 20 mg DAILY JOSEY Administration Spironolactone 25 mg 07/11/20 09:00 07/11/20 08:45 Spironolactone 25 Mg Tab PO 25 mg DAILY JOSEY Administration Intake and Output 07/10/20 07/11/20 07/11/20 22:59 06:59 14:59 Intake Total 173.917 0 240 Output Total 1000 Balance -826.083 0 240 Intake: Intake, IV Titration 53.917 0 Amount Diltiazem 125 mg In 53.917 0 Sodium Chloride 0.9% 100 ml @ 5 MG/HR 5 mls/hr IV .Q24H [facility] Rx#:[id number] Oral 120 240 Output: Urine 1000 Other: # Voids 1 # Bowel Movements 1 Weight 86.183 kg 86.5 kg 07/11/20 08:17 07/11/20 08:17
--- NOTE | 2020-07-11 14:48 | P.CNPUL ---
History of Present Illness Consult date: 07/11/20 Requesting physician: Pedro Veronica Reason for consult: dyspnea Chief complaint: Dyspnea on exertion History of present illness: This is a very pleasant 80-year-old gentleman who has a known history of atrial fibrillation anticoagulated with Xarelto, hypertension, hyperlipidemia, coronary artery disease with previous stent placement 3, bicuspid aortic valve replacement. He is a lifelong nonsmoker. He presented here to the emergency room yesterday with complaints of increasing shortness of breath, dyspnea on exertion, dry cough. He stated he felt as though this was a recurrence of heart failure exacerbation that he was recently admitted with. Chest x-ray shows evidence of a right medial lung base density possibly reflecting infiltrate. We are consulted for the same. He is seen today on the selective care unit. He is currently awake and alert in no acute distress. Sitting up bedside. Maintaining O2 saturations in the mid 90s on 2 L/m per nasal cannula. He's been afebrile. Blood culture reveals no growth to date. White count 12.7. Hemoglobin 14.6. Lymphocytes 0.8. D-dimer 0.65. Sodium 135. Potassium 4.7. Creatinine 0.94. Messer virus not detected. Echocardiogram from April 2020 revealed severely impaired left ventricular systolic function with ejection fraction 20-25%. He was initiated on antibiotics in the form of ceftriaxone and azithromycin along with IV diuretics. He had initially been on a Cardizem drip which was discontinued and currently with rate controlled. Review of Systems REVIEW OF SYSTEMS: CONSTITUTIONAL: Denies any recent significant weight loss or weight gain. EYES: Denies change in vision. EARS, NOSE, MOUTH, THROAT: Denies headaches, denies sore throat. CARDIOVASCULAR: Denies chest pain, palpitations or syncopal episodes. RESPIRATORY: Positive for shortness of breath, cough, congestion no hemoptysis. GASTROINTESTINAL: Denies change in appetite, denies abdominal pain GENITOURINARY: Denies hematuria, denies infections. MUSKULOSKELETAL: Denies pain, denies swelling. INTEGUMENTARY: Denies rash, denies eczema. NEUROLOGICAL: Denies recent memory loss, no recent seizure activity. PSYCHIATRIC: Denies anxiety, denies depression. HEMATOLOGIC/LYMPHATIC: Denies anemia, denies enlarged lymph nodes. Past Medical History Past Medical History: Atrial Fibrillation, Coronary Artery Disease (CAD), Heart Failure, Hyperlipidemia, Hypertension, Myocardial Infarction ([place]) Additional Past Medical History / Comment(s): mi x 3. fx rt hand Last Myocardial Infarction Date:: 2003 History of Any Multi-Drug Resistant Organisms: None Reported Past Surgical History: Cholecystectomy, Coronary Bypass/CABG, Heart Catheterization With Stent, Joint Replacement Additional Past Surgical History / Comment(s): ascending aortic and bicus[facility], 3 knee replacement, 3 stents total Past Anesthesia/Blood Transfusion Reactions: No Reported Reaction Date of Last Stent Placement:: 2008 Past Psychological History: No Psychological Hx Reported Smoking Status: Never smoker Past Alcohol Use History: Occasional Past Drug Use History: None Reported - Past Family History Mother Family Medical History: Coronary Artery Disease (CAD), Liver Disease Brother(s) Family Medical History: Congestive Heart Failure (CHF) Additional Family Medical History / Comment(s): heart transplant Medications and Allergies Home Medications Medication Instructions Recorded Confirmed Type Aspirin [Adult Low Dose Aspirin EC] 81 mg PO DAILY 10/18/18 07/10/20 History Enalapril Maleate [Vasotec] 2.5 mg PO DAILY 10/18/18 07/10/20 History Metoprolol Tartrate [Lopressor] 50 mg PO BID 10/18/18 07/10/20 History Rivaroxaban [Xarelto] 20 mg PO DAILY 10/18/18 07/10/20 History Albuterol Sulfate [Ventolin HFA] 2 puff INHALATION RT-QID PRN 05/13/20 07/10/20 History Amoxicillin/Potassium Clav 1 tab PO Q12HR 05/13/20 07/10/20 History [Augmentin 875-125 Tablet] Spironolactone [Aldactone] 25 mg PO DAILY #30 tab 05/16/20 07/10/20 Rx Albuterol Nebulized [Ventolin 2.5 mg INHALATION RT-Q6H PRN 07/10/20 07/10/20 History Nebulized] Cholecalciferol [Vitamin D3 (25 2,000 unit PO DAILY 07/10/20 07/10/20 History Mcg = 1000 Iu)] Furosemide [Lasix] 40 mg PO BID 07/10/20 07/10/20 History Rosuvastatin Calcium [Crestor] 5 mg PO SUMOWEFRSA 07/10/20 07/10/20 History Allergies Allergy/AdvReac Type Severity Reaction Status Date / Time No Known Allergies Allergy Verified 07/10/20 14:45 Physical Exam Vitals: Vital Signs Temp Pulse Resp BP BP Pulse Ox 07/11/20 12:03 76 16 107/68 95 07/11/20 08:00 98.3 F 96 16 117/64 96 07/11/20 02:59 71 17 105/58 97 07/10/20 23:18 72 16 115/74 95 07/10/20 19:57 98 F 89 17 130/78 95 07/10/20 15:26 98.4 F 86 18 124/81 94 L Intake and Output 07/10/20 07/11/20 07/11/20 22:59 06:59 14:59 Intake Total 173.917 0 480 Output Total 1000 Balance -826.083 0 480 Intake: Intake, IV Titration 53.917 0 Amount Diltiazem 125 mg In 53.917 0 Sodium Chloride 0.9% 100 ml @ 5 MG/HR 5 mls/hr IV .Q24H [facility] Rx#:[id number] Oral 120 480 Output: Urine 1000 Other: # Voids 1 # Bowel Movements 1 Weight 86.183 kg 86.5 kg GENERAL EXAM: Alert, active, 80-year-old gentleman, on 2 L nasal cannula, comfortable in no apparent distress. HEAD: Normocephalic. EYES: Normal reaction of pupils, equal size. NOSE: Clear with pink turbinates. THROAT: No erythema or exudates. NECK: No masses, no JVD. CHEST: No chest wall deformity. LUNGS: Equal air entry with faint crackles in the bilateral posterior bases. CVS: S1 and S2 normal with no audible murmur, regular rhythm. ABDOMEN: No hepatosplenomegaly, normal bowel sounds, no guarding or rigidity. SPINE: No scoliosis or deformity SKIN: No rashes CENTRAL NERVOUS SYSTEM: No focal deficits, tone is normal in all 4 extremities. EXTREMITIES: There is trace peripheral edema. No clubbing, no cyanosis. Per ipheral pulses are intact. Results - Laboratory Findings CBC and BMP: 07/11/20 08:17 07/11/20 08:17 PT/INR, D-dimer PT 13.1 sec (9.0-12.0) H 07/11/20 08:17 INR 1.3 (<1.2) H 07/11/20 08:17 D-Dimer 0.65 mg/L FEU (<0.60) H 07/10/20 09:28 Abnormal lab findings: Abnormal Labs 07/10/20 07/10/20 07/10/20 09:28 09:28 09:28 WBC 14.4 H Neutrophils # 12.3 H Lymphocytes # 0.8 L Monocytes # 1.1 H PT 17.2 H INR 1.8 H APTT 38.1 H D-Dimer Sodium 135 L BUN Glucose 155 H Total Bilirubin 3.5 H Unconjugated Bilirubin Delta Bilirubin Alkaline Phosphatase 36 L 07/10/20 07/11/20 07/11/20 09:28 08:17 08:17 WBC 12.7 H Neutrophils # 10.8 H Lymphocytes # 0.8 L Monocytes # PT 13.1 H INR 1.3 H APTT D-Dimer 0.65 H Sodium BUN Glucose Total Bilirubin Unconjugated Bilirubin Delta Bilirubin Alkaline Phosphatase 07/11/20 08:17 WBC Neutrophils # Lymphocytes # Monocytes # PT INR APTT D-Dimer Sodium 135 L BUN 24 H Glucose 176 H Total Bilirubin 3.0 H Unconjugated Bilirubin 2.7 H Delta Bilirubin 0.3 H Alkaline Phosphatase - Diagnostic Findings Chest x-ray: image reviewed Assessment and Plan Assessment: 1 Acute exacerbation of chronic systolic congestive heart failure with a known history of severely impaired left ventricular systolic function with ejection fr action 20-25% 2 Atrial fibrillation with rapid ventricular response requiring Cardizem drip, currently with rate controlled and anticoagulated with Xarelto 3 Coronary artery disease with previous stent placement 4 History of bicuspid aortic valve status post aortic valve replacement 5 Hyperlipidemia 6 Hypertension 7 Lifelong nonsmoker Plan: The patient was seen and evaluated by Dr. Potts. Chest x-ray and labs reviewed Doubt pneumonia, obtain a pro-calcitonin Continue antibiotics and bronchodilators for now Continue IV diuretics We will continue to follow and make further recommendations based on her clinical status I, the cosigning physician, performed a history & physical examination of the patient. Lungs sounds with crackles in the bilateral posterior bases. Maintaining good O2 saturations in the 90s on 2 L/m per nasal cannula. I discussed the assessment and plan of care with my nurse practitioner, Michelle Cook. I attest to the above consultation as dictated by her. Time with Patient: Greater than 30
--- NOTE | 2020-07-11 16:07 | PN ---
PROGRESS NOTE I am covering for Dr. Pruitt. DATE OF SERVICE: 07/11/2020 This 80-year-old gentleman who was admitted CHF, acute exacerbation, also had atrial fibrillation with fast ventricular rate. The patient is being closely monitored. No chest pain. No palpitations. No fever. PHYSICAL EXAMINATION: Alert and oriented x3. Pulse 87, blood pressure 90/62, respiration 18, temperature 98.2, pulse ox 96% on room air. HEENT: Conjunctivae normal. NECK: No jugular venous distention. CARDIOVASCULAR SYSTEM: S1, S2 muffled. RESPIRATORY SYSTEM: Breath sounds diminished at the bases. ABDOMEN: Soft. NERVOUS SYSTEM: No focal deficit. LABS: WBC 12.7 and INR is 1.3. Sodium is 135. COVID-19 is negative. ASSESSMENT: 1. Congestive heart failure, acute exacerbation, with acute on chronic systolic dysfunction, ejection fraction 20% to 25%, with possible ischemic cardiomyopathy. 2. Atrial fibrillation with fast ventricular rate. 3. Chronic atrial fibrillation. 4. Right lower lobe pneumonia, possibly community-acquired. 5. High bilirubin. 6. History of coronary artery disease. 7. History of hypertension. 8. Hyperlipidemia. 9. History of myocardial infarction. 10.History of cholecystectomy. 11.History of coronary artery disease, coronary artery bypass grafting, stent. 12.History of degenerative joint disease. 13.History of ascending aortic aneurysm and bicuspid valve replacement at [facility]. 14.History of knee replacement. 15.Obesity with a body mass index of 32.6. RECOMMENDATIONS AND DISCUSSION: I recommend to continue current medications, continue symptomatic treatment. Continue with Xarelto. Continue with beta blockers. The patient is on Lopressor 75 mg p.o. b.i.d. per Cardiology. Guarded prognosis. Further recommendations to follow. MMODL / IJN: [id number] /
[2020-07-11] MEDS: METOPROLOL TARTRATE 25 MG TAB PO SCH (19:38)
[2020-07-12] MEDS: ASPIRIN 81 MG PO SCH ×2 (08:23→11:13)
[2020-07-12] MEDS: SPIRONOLACTONE 25 MG TAB PO SCH (08:23)
[2020-07-12] MEDS: CHOLECALCIFEROL 1,000 UNIT TAB PO SCH (08:23)
[2020-07-12] MEDS: FUROSEMIDE 10 MG/ML 4 ML VIAL IV SCH (08:24)
[2020-07-12] MEDS: AZITHROMYCIN 500 MG TAB PO SCH (08:24)
[2020-07-12] MEDS: lisinopriL 5 MG TAB PO SCH (08:24)
[2020-07-12] MEDS: METOPROLOL TARTRATE 25 MG TAB PO SCH ×2 (08:24→20:13)
[2020-07-12] MEDS: RIVAROXABAN 20 MG TAB PO SCH (08:24)
[2020-07-12] MEDS: ATORVASTATIN 10 MG TAB PO SCH ×2 (08:29→11:13)
[2020-07-12 09:19] LABS: Basophils % (A) 1 %; Eosinophils # (A) 0.3 k/uL (0-0.7); Eosinophils % (A) 3 %; HCT 47.9 % (39.0-53.0); HGB 15.4 gm/dL (13.0-17.5); Lymphocytes # (A) 0.9 k/uL (1.0-4.8); Lymphocytes % (A) 10 %; MCH 31.9 pg (25.0-35.0); MCHC 32.2 g/dL (31.0-37.0); Mean Platelet Volume 7.1; Monocytes # (A) 0.4 k/uL (0-1.0); Monocytes % (A) 4 %; Neutrophils # (A) 7.3 k/uL (1.3-7.7); Neutrophils % (A) 82 %; Platelet Count 208 k/uL (150-450); RBC 4.83 m/uL (4.30-5.90); RDW 13.5 % (11.5-15.5); WBC 8.9 k/uL (3.8-10.6)
[2020-07-12 09:34] LABS: INR 1.4 (<1.2); Prothrombin Time 13.5 sec (9.0-12.0)
[2020-07-12 09:38] LABS: Albumin 4.2 g/dL (3.5-5.0); Calcium 9.5 mg/dL (8.4-10.2); Potassium 3.9 mmol/L (3.5-5.1); Total Bilirubin 2.9 mg/dL (0.2-1.3); Total Protein 7.2 g/dL (6.3-8.2)
[2020-07-12] MEDS ORDERED: MAGNESIUM SULFATE-D5W PMX 1 GM in DEXTROSE/WATER 1 100ML.BAG IVPB ONE (10:40)
[2020-07-12] MEDS ORDERED: ALPRAZolam 0.25 MG TAB PO PRN (11:04)
[2020-07-12] MEDS ORDERED: ALPRAZolam 0.5 MG TAB PO PRN (11:04)
[2020-07-12] MEDS ORDERED: NITROGLYCERIN SL TABS 0.4 MG TAB SUBLINGUAL PRN (11:04)
[2020-07-12] MEDS: AMIODARONE 200 MG TAB PO SCH ×2 (12:11→20:13)
--- NOTE | 2020-07-12 14:41 | P.PN ---
Subjective Progress Note Date: 07/12/20 CHIEF COMPLAINT: A. fib with RVR HISTORY OF PRESENT ILLNESS: Patient examined this morning at the bedside. Patient denies chest pain or pressure. He reports mild soreness of breath but states it is significantly improved since admission. He remains in atrial fibrillation with controlled rate. Patient had a 15 beat run of V. tach this morning. PHYSICAL EXAM: VITAL SIGNS: Reviewed. GENERAL: Well-developed in no acute distress. HEENT: Head is normocephalic. Pupils are equal, round. Sclerae anicteric. Mucous membranes of the mouth are moist. Neck supple. No JVD or thyromegaly LUNGS: Respirations even and unlabored. Lungs diminished. HEART: Irregular rate and rhythm. S1 and S2 heard. ABDOMEN: Soft. Nondistended. Nontender. EXTREMITIES: Normal range of motion. No clubbing or cyanosis. Peripheral pulses intact. Trace bilateral lower extremity edema NEUROLOGIC: Awake and alert. Oriented x 3. ASSESSMENT: Shortness of breath Paroxysmal atrial fibrillation with RVR Acute exacerbation of chronic systolic congestive heart failure, EF 20-25% Coronary artery disease with previous PCI History of aortic valve replacement Hypertension Hyperlipidemia Ventricular tachycardia, 15 beat run PLAN: Continue current cardiac medications Begin amiodarone 400 mg by mouth twice a day Give 1 g magnesium IV Transition IV Lasix to oral dosin mg BID Case discussed with Dr. Olsen. Patients EF previously around 45% and now around 20-25% . Patient also with 15 beat run of Vtach this morning. Patient was scheduled to have a stress test next month. Patient may require AICD, however he will first undergo cardiac catheterization tomorrow with Dr. Olsen to assess for any coronary obstructions. Hold Viral santoro per Dr. Roman Nurse practitioner note has been reviewed by physician. Signing provider agrees with the documented findings, assessment, and plan of care. Objective - Vital Signs Vital signs: Vital Signs Temp 97.8 F 07/12/20 12:00 Pulse 78 07/12/20 13:24 Resp 16 07/12/20 13:24 BP 95/62 07/12/20 12:00 Pulse Ox 93 L 07/12/20 12:00 Intake & Output 07/11/20 07/12/20 07/12/20 18:59 06:59 18:59 Intake Total 720 480 Output Total 500 1250 1000 Balance 220 -1250 -520 Weight 86 kg Intake: Oral 720 480 Output: Urine 500 1250 1000 Other: # Voids 1 - Labs CBC & Chem 7: 07/12/20 08:37 07/12/20 08:37 Labs: Abnormal Lab Results - Last 24 Hours (Table) 07/12/20 07/12/20 07/12/20 Range/Units 08:37 08:37 08:37 Lymphocytes # 0.9 L (1.0-4.8) k/uL PT 13.5 H (9.0-12.0) sec INR 1.4 H (<1.2) Chloride 95 L (98-107) mmol/L Carbon Dioxide 34 H (22-30) mmol/L BUN 31 H (9-20) mg/dL Glucose 198 H (74-99) mg/dL Total Bilirubin 2.9 H (0.2-1.3) mg/dL Alkaline Phosphatase 36 L (38-126) U/L Microbiology - Last 24 Hours (Table) 07/10/20 12:02 Blood Culture - Preliminary Blood No Growth after 48 hours
--- NOTE | 2020-07-12 17:09 | P.PN ---
Subjective Progress Note Date: 07/12/20 Principal diagnosis: Acute exacerbation of systolic congestive heart failure This is a very pleasant 80-year-old gentleman who has a known history of atrial fibrillation anticoagulated with Xarelto, hypertension, hyperlipidemia, coronary artery disease with previous stent placement 3, bicuspid aortic valve replacement. He is a lifelong nonsmoker. He presented here to the emergency room yesterday with complaints of increasing shortness of breath, dyspnea on exertion, dry cough. He stated he felt as though this was a recurrence of heart failure exacerbation that he was recently admitted with. Chest x-ray shows evidence of a right medial lung base density possibly reflecting infiltrate. We are consulted for the same. He is seen today on the selective care unit. He is currently awake and alert in no acute distress. Sitting up bedside. Maintaining O2 saturations in the mid 90s on 2 L/m per nasal cannula. He's been afebrile. Blood culture reveals no growth to date. White count 12.7. Hemoglobin 14.6. Lymphocytes 0.8. D-dimer 0.65. Sodium 135. Potassium 4.7. Creatinine 0.94. Messer virus not detected. Echocardiogram from April 2020 revealed severely impaired left ventricular systolic function with ejection fraction 20-25%. He was initiated on antibiotics in the form of ceftriaxone and azithromycin along with IV diuretics. He had initially been on a Cardizem drip which was discontinued and currently with rate controlled. The patient is seen today 07/12/2020 in follow-up on the regular medical floor. He is awake and alert in no acute distress. Sitting up in a chair at the bedside. No worsening shortness of breath cough or congestion. He is maintaining O2 saturations in the 90s on room air. His heart rate is controlled. He's afebrile. Hemodynamically stable. White count 8.9. Hemoglobin 15.4. Creatinine 1.02. Sodium 139. Potassium 3.9. Objective - Vital Signs Vital signs: Vital Signs Temp 97.8 F 07/12/20 16:00 Pulse 78 07/12/20 16:00 Resp 16 07/12/20 16:00 BP 104/61 07/12/20 16:00 Pulse Ox 94 L 07/12/20 16:00 Intake & Output 07/11/20 07/12/20 07/12/20 18:59 06:59 18:59 Intake Total 720 480 Output Total 500 1250 1200 Balance 220 -1250 -720 Weight 86 kg Intake: Oral 720 480 Output: Urine 500 1250 1200 Other: # Voids 1 - Exam GENERAL EXAM: Alert, active, 80-year-old gentleman, on room air, comfortable in no apparent distress. HEAD: Normocephalic. EYES: Normal reaction of pupils, equal size. NOSE: Clear with pink turbinates. THROAT: No erythema or exudates. NECK: No masses, no JVD. CHEST: No chest wall deformity. LUNGS: Equal air entry with faint crackles in the bilateral posterior bases. CVS: S1 and S2 normal with no audible murmur, regular rhythm. ABDOMEN: No hepatosplenomegaly, normal bowel sounds, no guarding or rigidity. SPINE: No scoliosis or deformity SKIN: No rashes CENTRAL NERVOUS SYSTEM: No focal deficits, tone is normal in all 4 extremities. EXTREMITIES: There is trace peripheral edema. No clubbing, no cyanosis. Pe ripheral pulses are intact. - Labs CBC & Chem 7: 07/12/20 08:37 07/12/20 08:37 Labs: Abnormal Lab Results - Last 24 Hours (Table) 07/12/20 07/12/20 07/12/20 Range/Units 08:37 08:37 08:37 Lymphocytes # 0.9 L (1.0-4.8) k/uL PT 13.5 H (9.0-12.0) sec INR 1.4 H (<1.2) Chloride 95 L (98-107) mmol/L Carbon Dioxide 34 H (22-30) mmol/L BUN 31 H (9-20) mg/dL Glucose 198 H (74-99) mg/dL Total Bilirubin 2.9 H (0.2-1.3) mg/dL Alkaline Phosphatase 36 L (38-126) U/L Microbiology - Last 24 Hours (Table) 07/10/20 12:02 Blood Culture - Preliminary Blood No Growth after 48 hours Assessment and Plan Assessment: 1 Acute exacerbation of chronic systolic congestive heart failure with a known history of severely impaired left ventricular systolic function with ejection fraction 20-25% 2 Atrial fibrillation with rapid ventricular response requiring Cardizem drip, currently with rate controlled and anticoagulated with Xarelto 3 Coronary artery disease with previous stent placement 4 History of bicuspid aortic valve status post aortic valve replacement 5 Hyperlipidemia 6 Hypertension 7 Lifelong nonsmoker Plan: The patient was seen and evaluated by Dr. Potts. Pro calcitonin 0.04 Discontinue his antibiotics Continue diuretics Plan is for cardiac catheterization in the a.m. We will continue to follow and make further recommendations based on her clinical status I, the cosigning physician, performed a history & physical examination of the patient. Lungs sounds with crackles in the bilateral posterior bases. Maintaining good O2 saturations in the 90s on room air. I discussed the assessment and plan of care with my nurse practitioner, Michelle Cook. I attest to the above note as dictated by her.
[2020-07-12] MEDS: FUROSEMIDE 80 MG TAB PO SCH (17:10)
[2020-07-12] MEDS ORDERED: SODIUM CHLORIDE 0.9% 1,000 ML in EMPTY BAG 1 BAG IV ONE (18:00)
--- NOTE | 2020-07-12 23:13 | PN ---
PROGRESS NOTE DATE OF SERVICE: 07/12/2020 I am covering for Dr. Pruitt. This 80-year-old gentleman was admitted with congestive heart failure acute exacerbation, also atrial fibrillation with fast ventricular rate. The patient also had a run of ventricular tachycardia this morning. The ejection fraction was found to be 20-25%. Cardiology recommended amiodarone p.o. and as well as transition Lasix to p.o. and because of reduction of ejection fraction, the patient will undergo cardiac catheterization tomorrow by Dr. Olsen. PHYSICAL EXAMINATION: Alert and oriented x3. Pulse is 78, blood pressure 105/61, respirations 16, temperature 97.8, pulse ox 94% on room air. HEENT: Conjunctivae normal. Oral mucosa moist. NECK: No jugular venous distention. No lymph node enlargement. CARDIOVASCULAR: S1, S2, muffled. No S3, no S4, RESPIRATORY: Diminished breath sounds at the bases. A few scattered rhonchi. ABDOMEN: Soft, nontender. LEGS: No edema, no swelling. NERVOUS SYSTEM: No focal motor or sensory deficits. LABS: The INR 1.4. Sodium 139. ASSESSMENT: 1. CHF acute exacerbation with acute on chronic systolic dysfunction, ejection fraction 20-25% with possible ischemic cardiomyopathy. 2. Atrial fibrillation with fast ventricular rate. 3. Nonsustained ventricular tachycardia. 4. Chronic atrial fibrillation. 5. Right lower pneumonia, possibly community-acquired. 6. High bilirubin. 7. History of coronary artery disease. 8. Hypertension. 9. Hyperlipidemia. 10.History of myocardial infarction. 11.History of cholecystectomy. 12.History of CAD, CABG, stent. 13.History of DJD. 14.History of ascending aortic aneurysm and bicuspid aortic valve replacement at the [facility]. 15.History of knee replacement. 16.Obesity with body mass index of 32.6. RECOMMENDATIONS AND DISCUSSION: Recommend to continue current medications, symptomatic treatment. Otherwise at this time the patient started on amiodarone. As mentioned earlier, because low ejection fraction the patient will undergo cardiac cath by Cardiology. 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 I would recommend continue with current medications. Follow closely with Dr. Pruitt in the outpatient setting. Further recommendations to follow. MMODL / IJN: [id number] /
[2020-07-13] MEDS ORDERED: ATORVASTATIN 80 MG TAB PO ONE (07:00)
[2020-07-13] MEDS ORDERED: ASPIRIN 325 MG TAB PO ONE (07:00)
[2020-07-13 07:53] LABS: Basophils # (A) 0.1 k/uL (0-0.2); Basophils % (A) 1 %; Eosinophils # (A) 0.4 k/uL (0-0.7); Eosinophils % (A) 4 %; HCT 42.1 % (39.0-53.0); Lymphocytes # (A) 1.2 k/uL (1.0-4.8); Lymphocytes % (A) 13 %; MCH 32.4 pg (25.0-35.0); MCHC 33.2 g/dL (31.0-37.0); MCV 97.8 fL (80.0-100.0); Monocytes # (A) 0.6 k/uL (0-1.0); Monocytes % (A) 6 %; Neutrophils # (A) 6.8 k/uL (1.3-7.7); Neutrophils % (A) 74 %; Platelet Count 173 k/uL (150-450); RBC 4.31 m/uL (4.30-5.90); RDW 13.1 % (11.5-15.5); WBC 9.2 k/uL (3.8-10.6)
[2020-07-13 08:14] LABS: INR 1.4 (<1.2)
[2020-07-13 08:47] LABS: Albumin 3.4 g/dL (3.5-5.0); Calcium 8.8 mg/dL (8.4-10.2); Total Bilirubin 1.5 mg/dL (0.2-1.3)
[2020-07-13] MEDS: AMIODARONE 200 MG TAB PO SCH ×2 (09:05→20:33)
[2020-07-13] MEDS: lisinopriL 5 MG TAB PO SCH (09:05)
[2020-07-13] MEDS: METOPROLOL TARTRATE 25 MG TAB PO SCH ×2 (09:05→20:33)
[2020-07-13] MEDS: CHOLECALCIFEROL 1,000 UNIT TAB PO SCH (09:06)
[2020-07-13] MEDS: SPIRONOLACTONE 25 MG TAB PO SCH (09:06)
[2020-07-13] MEDS: FUROSEMIDE 80 MG TAB PO SCH ×2 (09:06→17:57)
[2020-07-13] MEDS ORDERED: fentaNYL (PF) 50 MCG/ML 2 ML AMP ONE (10:13)
[2020-07-13] MEDS ORDERED: LIDOCAINE 1% INJ 10MG/ML (20 ML MDV) ONE (10:13)
[2020-07-13] MEDS ORDERED: IV FLUID CONTINUATION 1,000 ML IV ONE (10:40)
[2020-07-13] MEDS ORDERED: fentaNYL (PF) 50 MCG/ML 2 ML AMP IVP ONE (11:06)
[2020-07-13] MEDS: LIDOCAINE 1% INJ 10MG/ML (20 ML MDV) SQ ONE ×2 (11:09→11:54)
[2020-07-13] MEDS ORDERED: VERAPAMIL 2.5 MG/ML 2 ML AMP ONE (11:22)
[2020-07-13] MEDS ORDERED: VERAPAMIL SYRINGE (5 MG/10 ML) INTRAARTER ONE (11:23)
[2020-07-13] MEDS ORDERED: HEPARIN SODIUM 1,000 UN/ML (10ML VL) ONE (11:38)
[2020-07-13] MEDS ORDERED: HEPARIN SODIUM 1,000 UN/ML (10ML VL) IV ONE (11:39)
[2020-07-13] MEDS ORDERED: IOPAMIDOL-370 125ML BTL INJ ONE ×3 (12:02→13:06)
[2020-07-13] MEDS ORDERED: CLOPIDOGREL 75 MG TAB ONE (12:26)
[2020-07-13] MEDS ORDERED: CLOPIDOGREL 75 MG TAB PO ONE (12:30)
[2020-07-13] MEDS ORDERED: ZOLPIDEM 5 MG TAB PO PRN (13:25)
[2020-07-13] MEDS ORDERED: RX INFO: IV CONTRAST WAS GIVEN 1 EACH MISC MISCELLANE PRN (13:25)
[2020-07-13] MEDS ORDERED: NITROGLYCERIN SL TABS 0.4 MG TAB SUBLINGUAL PRN (13:25)
[2020-07-13] MEDS ORDERED: MAG HYDROX/AL HYDROX/SIMETH 30 ML CUP PO PRN (13:25)
[2020-07-13] MEDS ORDERED: ATROPINE SULFATE 0.1 MG/ML 10ML SYRINGE IV PRN (13:25)
[2020-07-13] MEDS ORDERED: SODIUM CHLORIDE 0.9% 1,000 ML IV SCH (13:30)
--- NOTE | 2020-07-13 13:59 | CC ---
CARDIAC CATHETERIZATION REPORT HISTORY: Mr. Barrow is an 80-year-old male with a known history of ascending aortic repair and aortic valve replacement, multiple percutaneous revascularizations, history of cardiomyopathy and atrial fibrillation, who presented with symptoms of progressive dyspnea and had evidence of nonsustained ventricular tachycardia. In view of that, recommendation made regarding cardiac catheterization, the procedures, risks, and complication were discussed with the patient who is in full understanding and agreement. PROCEDURE: Patient was brought to the vat house laborer in a fasting semi-sedated state. After receiving fentanyl and Benadryl and achieving moderate conscious sedated state, using Xylocaine anesthesia and Seldinger technique, a 6-Turkmen sheath was introduced in the right radial artery. Attempt to cannulate the coronaries using a 5-Turkmen 3.5 bend left Selena and right Selena were unsuccessful. Subsequently a 5-Turkmen Fernando catheter was successful in cannulating the left main and images of the left coronary system were obtained. Multiple attempts to cannulate the right coronary system using the Fernando, FR5 AL1 were unsuccessful. At that time the catheter were removed. Using xylocaine anesthesia and Seldinger technique, a 6-Turkmen sheath was introduced in the right femoral artery. Attempts to cannulate the right coronary artery using a 6-Turkmen 4 bend right Selena, 6-Turkmen AL1 and an AL0.75 were unsuccessful, subsequently a 6-Turkmen no toe catheter was used and was successful in cannulating the right coronary ostium. Images of the right coronary artery were performed. The aortic valve was crossed and left ventricular end-diastolic pressure was calculated. Following that catheter removed, images were reviewed. FINDINGS: FLUOROSCOPY: There was severe calcification involving all the coronary arteries. LEFT MAIN: This is a large-sized vessel, bifurcating into left circumflex, left anterior descending artery. Left main coronary artery has no evidence of high-grade stenosis artery. LEFT ANTERIOR DESCENDING: This is a large-sized vessel, tapers down in distal third, giving rise to a large diagonal branch. The LAD has 2 major septal perforators. The LAD proximally has 30% plaque. The rest of the vessel has mild intimal disease without any evidence of high-grade stenosis. LEFT CIRCUMFLEX: This is a nondominant vessel, large in caliber, giving rise to a large obtuse marginal branch, heavily calcified. The proximal left circumflex has 70-80 percent stenosis. In the stented segments in the mid area there is a 40 to 50% plaque. The rest of the vessel has intimal disease without any evidence of high-grade stenosis. RIGHT CORONARY ARTERY: This is a large dominant vessel, bifurcating distally, PDA and posterolateral segment branches. The right coronary artery stented segments are patent. There is mild to moderate disease with area of stenosis up to 20to 30% without any evidence of high-grade stenosis. The right PDA reaches toward the inferoapical wall. LEFT VENTRICULOGRAM: Not performed. HEMODYNAMICS: There was no gradient across the aortic valve. The left ventricular end-diastolic pressure was 16 to 20 mmHg. CONCLUSION: 1. Critical stenosis in the proximal left circumflex. 2. Mild to moderate disease in the ostium of the LAD. 3. Mild disease in the right coronary artery. 4. Heavily calcified coronary arteries. RECOMMENDATIONS: In view of finding anatomy, I recommend proceeding with angioplasty and stenting the left circumflex. The procedure as well as the risks and complications were discussed with the patient who is in full understanding and agreement. MMODL / IJN: [id number] /
--- NOTE | 2020-07-13 14:11 | PTCA ---
PERCUTANEOUSTRANS CORORONARY ANGIOGRAPHY July 13, [address] Pruitt: I had the opportunity to perform cardiac catheterization and coronary angioplasty and stenting on Mr. Barrow at [facility] on July 13. A full copy of the procedure note will be forwarded to you. In brief, he was found to have critical stenosis involving the left circumflex and underwent successful stenting of that vessel. I am hopeful that this procedure will stabilize his status. Thank you again for allowing me to participate in his care. Please feel free to call if there are any questions. Sincerely, Remi Olsen MD MMROCÍOL / TANKN: [id number] /
--- NOTE | 2020-07-13 14:11 | PTCA ---
PERCUTANEOUSTRANS CORORONARY ANGIOGRAPHY HISTORY: Mr. Barrow is an 80-year-old male with a known history of coronary artery disease who presented with symptoms of progressive dyspnea and nonsustained ventricular tachycardia. Underwent cardiac catheterization was found to have critical stenosis involving the proximal left circumflex. In view of that, recommendation regarding angioplasty and stenting. The procedure as well as the risks and complications were discussed with the patient who is in full understanding and agreement. PROCEDURE: A 6-Tajik EBU 3.75 guiding catheter was introduced in the system. After cannulating the left main a 0.014 balanced medium weight J-wire was advanced in the left circumflex and positioned in the distal OM. Subsequently attempt to advance a 2.5 x 12 mm NC Trek balloon were unsuccessful. The balloon was removed and another 0.014 balanced medium weight J-wire was advanced next to the first one in a irvin fashion and positioned distally. Attempts to advance the NC balloon were unsuccessful. That balloon was removed and attempts to advance a 2.5 x 12 mm Trek balloon were unsuccessful as well. Subsequently that balloon was removed and a 1.5 x 8 mm Trek balloon was advanced and multiple inflations maximum of 16 atmospheres was done. Following that the balloon was removed and a 2.5 x 12 mm Trek balloon was advanced and inflation at 8 atmospheres were done. Following that the balloon was removed and a 2.5 x 12 NC balloon was advanced and inflation up to 14 atmospheres done. Following that the balloon was removed and a 3.0 x 12 mm NC Trek balloon was advanced and inflation up to 14 atmospheres was done. Following that, the balloon was removed and attempts to advance a 3.25 x 18 mm Xience Eliza stent were unsuccessful. That stent was removed and a 3.25 x 15 mm Xience Eliza stent was advanced, deployed and post dilated to 16 atmospheres. Following that, the balloon and the guidewire were withdrawn back in the guiding catheter. Images were obtained and repeated. Those images reveal stable successful stenting. At that point, the guiding catheter, the balloon and the guidewire were removed. The sheath was removed. Hemostasis was obtained with deployment of an Angio-Seal in the right femoral artery and TR band on the right radial artery. Of note the patient had no chest discomfort or EKG changes with the inflation. He received 5000 units of intravenous heparin. His ACT was followed throughout the procedure. He received intra- arterial verapamil. RESULTS: Successful stenting of the proximal segment of a left circumflex in a heavily calcified area with reduction of stenosis from 70% to 0%. RECOMMENDATIONS: Patient be continued on aspirin and Plavix. The Xarelto will be re-initiated in the next 24 hours. Subsequently, aspirin will be stopped in 4 weeks. Close followup his left ventricular systolic function will be done. Depending on his progress, further recommendations will be made. SEDATION TIME: 121 minutes. LISA / MANUEL: [id number] /
[2020-07-13 14:21] VITALS: BMI 32.9
--- NOTE | 2020-07-13 17:05 | PN ---
PROGRESS NOTE DATE OF SERVICE: 07/13/2020 I am covering for Dr. Pruitt. This 80-year-old gentleman who was admitted with CHF exacerbation also had ischemic cardiomyopathy. Ejection fraction found to be 20 to 25%. Dr. Olsen performed a cardiac cath which showed critical stenosis of the proximal left circumflex and mild to moderate disease of the ostium of the LAD and mild disease of the right RCA and heavily calcified coronary arteries. Patient underwent angioplasty and stenting. No chest pain. No palpitations. No fever. PHYSICAL EXAMINATION: Alert and oriented x3. The pulse is 68. Blood pressure 118/66, respirations 18, temperature 97.8, pulse ox 94% on room air. HEENT: Conjunctivae normal. NECK: No JVD. CARDIOVASCULAR: S1, S2 muffled. RESPIRATORY SYSTEM: Breath sounds diminished at the bases. No rhonchi. No crackles. ABDOMEN: Soft. Nontender. LEGS: Legs no edema. No swelling. NERVOUS SYSTEM: No focal deficits. LABS: CBC within normal limits and INR is 1.4. Other labs are noted. ASSESSMENT: 1. Congestive heart failure acute exacerbation, acute on chronic systolic dysfunction. Ejection fraction 20-25 percent with possible ischemic cardiomyopathy. 2. Status post cardiac catheterization and stenting of the proximal left circumflex critical stenosis. 3. Mild to moderate disease of the ostium of the LAD and mild disease of the RCA and cardiac cath. 4. Atrial fibrillation with fast ventricular rate. 5. Nonsustained ventricular tachycardia. 6. Chronic atrial fibrillation. 7. Right lower lobe pneumonia, possibly community-acquired. 8. 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 9. History of coronary artery disease. 10.Hypertension. 11.Hyperlipidemia. 12.History of myocardial infarction. 13.History of cholecystectomy. 14.History of coronary artery disease, coronary artery bypass grafting. 15.History of degenerative joint disease. 16.History of ascending aortic aneurysm and bicuspid aortic valve replacement at the [facility]. 17.History of knee replacements. 18.Obesity with body mass index of 32.6. RECOMMENDATIONS AND DISCUSSION: Continue current medications, continue to monitor. Symptomatic treatment. Continue the antiplatelet agents. Closely follow with Cardiology. Monitor electrolytes closely. Otherwise, Dr. Pruitt will follow tomorrow. MMODL / IJN: [id number] /
[2020-07-14 00:02] VITALS: RESP 18
--- NOTE | 2020-07-14 08:05 | P.DS ---
Providers Date of admission: 07/10/20 11:09 Attending physician: Sunny Pruitt Consults: 07/10/20 11:29 Consult Physician Routine Consulting Provider: Eron Roman Consult Reason/Comments: A. fib RVR Do you want consulting provider notified?: Yes 07/10/20 12:26 Consult Physician Urgent Consulting Provider: Tania Potts Consult Reason/Comments: SOB Do you want consulting provider notified?: Yes 07/13/20 13:26 Consult Physician Routine Consulting Provider: [facility] Consult Reason/Comments: Post Interventional patient Do you want consulting provider notified?: Already Contacted Primary care physician: Sunny Pruitt [facility] Course: This discharge summary 80-year-old white male essentially with history of atrial fibrillation and pneumonia. The patient had cardiac procedure once cleared by cardiology will be cleared for discharge. The patient is stable tolerating diet and voiding without difficulty. No ambulation difficulties and the patient seemingly is back to baseline. Patient follow-up with me in 5-7 days Patient Condition at Discharge: Fair Plan - Discharge Summary New Discharge Prescriptions: New Amiodarone [Cordarone] 400 mg PO BID #60 tab Furosemide [Lasix] 80 mg PO BID@0900,1600 #60 tab Clopidogrel [Plavix] 75 mg PO DAILY #30 tab Continue Rivaroxaban [Xarelto] 20 mg PO DAILY Metoprolol Tartrate [Lopressor] 50 mg PO BID Enalapril Maleate [Vasotec] 2.5 mg PO DAILY Aspirin [Adult Low Dose Aspirin EC] 81 mg PO DAILY Albuterol Sulfate [Ventolin HFA] 2 puff INHALATION RT-QID PRN PRN Reason: Shortness Of Breath Amoxicillin/Potassium Clav [Augmentin 875-125 Tablet] 1 tab PO Q12HR Spironolactone [Aldactone] 25 mg PO DAILY #30 tab Cholecalciferol [Vitamin D3 (25 Mcg = 1000 Iu)] 2,000 unit PO DAILY Rosuvastatin Calcium [Crestor] 5 mg PO SUMOWEFRSA Albuterol Nebulized [Ventolin Nebulized] 2.5 mg INHALATION RT-Q6H PRN PRN Reason: Shortness Of Breath Discontinued Furosemide [Lasix] 40 mg PO BID Discharge Medication List Aspirin [Adult Low Dose Aspirin EC] 81 mg PO DAILY 10/18/18 [History] Enalapril Maleate [Vasotec] 2.5 mg PO DAILY 10/18/18 [History] Metoprolol Tartrate [Lopressor] 50 mg PO BID 10/18/18 [History] Rivaroxaban [Xarelto] 20 mg PO DAILY 10/18/18 [History] Albuterol Sulfate [Ventolin HFA] 2 puff INHALATION RT-QID PRN 05/13/20 [History] Amoxicillin/Potassium Clav [Augmentin 875-125 Tablet] 1 tab PO Q12HR 05/13/20 [History] Spironolactone [Aldactone] 25 mg PO DAILY #30 tab 05/16/20 [Rx] Albuterol Nebulized [Ventolin Nebulized] 2.5 mg INHALATION RT-Q6H PRN 07/10/20 [History] Cholecalciferol [Vitamin D3 (25 Mcg = 1000 Iu)] 2,000 unit PO DAILY 07/10/20 [History] Rosuvastatin Calcium [Crestor] 5 mg PO SUMOWEFRSA 07/10/20 [History] Amiodarone [Cordarone] 400 mg PO BID #60 tab 07/14/20 [Rx] Clopidogrel [Plavix] 75 mg PO DAILY #30 tab 07/14/20 [Rx] Furosemide [Lasix] 80 mg PO BID@0900,1600 #60 tab 07/14/20 [Rx] Follow up Appointment(s)/Referral(s): Sunny Pruitt MD [Primary Care Provider] - 1 Week
[2020-07-14] MEDS: CHOLECALCIFEROL 1,000 UNIT TAB PO SCH (08:53)
[2020-07-14] MEDS: METOPROLOL TARTRATE 25 MG TAB PO SCH (08:53)
[2020-07-14] MEDS: FUROSEMIDE 80 MG TAB PO SCH (08:53)
[2020-07-14] MEDS: lisinopriL 5 MG TAB PO SCH (08:53)
[2020-07-14] MEDS: SPIRONOLACTONE 25 MG TAB PO SCH (08:53)
[2020-07-14] MEDS: AMIODARONE 200 MG TAB PO SCH (08:53)
[2020-07-14 08:58] VITALS: BP 105/54; PULSE 74; TEMP 97.6
[2020-07-14] MEDS ORDERED: ATORVASTATIN 20 MG TAB PO SCH (09:00)
[2020-07-14] MEDS ORDERED: CLOPIDOGREL 75 MG TAB PO SCH (09:00)
[2020-07-14] MEDS ORDERED: ASPIRIN 81 MG PO SCH (09:00)
[2020-07-14 10:47] LABS: Potassium 3.8 mmol/L (3.5-5.1)
--- NOTE | 2020-07-14 12:42 | P.PN ---
Subjective Progress Note Date: 07/14/20 This is an 80-year-old gentleman who follows with Dr. Olsen in the office. He has a history of atrial fibrillation, on anticoagulation at home, hypertension, hyperlipidemia, coronary artery disease with prior PCI 3, bicuspid aortic valve, presented to the hospital with symptoms of worsening sh ortness of breath, exertional in nature. He was taken to the cardiac catheterization lab where he underwent stenting of the circumflex artery by Dr. Olsen. His blood pressure 105/50 with a heart rate in the 70s, 97% on room air. Sodium 139, potassium 3.8, BUN 29, creatinine 1.0. Patient's documented ejection fraction 20-25%, he was also noted to have a 15 beat run of nonsustained ventricular tachycardia. No evidence of any arrhythmias through the night. Because of his reduced LV function and associated ventricular tachycardia the patient was advised by Dr. Roman to have a LifeVest placed. Patient refuses at this time. Objective - Vital Signs Vital signs: Vital Signs Temp 97.6 F 07/14/20 08:00 Pulse 74 07/14/20 08:00 Resp 18 07/14/20 08:00 BP 105/54 07/14/20 08:00 Pulse Ox 97 07/14/20 08:00 Intake & Output 07/13/20 07/14/20 07/14/20 18:59 06:59 18:59 Intake Total 1065 Balance 1065 Weight 87 kg 88 kg Intake: IV 225 Intake, IV Titration 600 Amount Sodium Chloride 0.9% 1, 600 000 ml @ 75 mls/hr IV . [id number] [facility] Rx#:[id number] Oral 240 Other: # Voids 1 2 # Bowel Movements 1 - Exam PHYSICAL EXAMINATION: GENERAL: 80-year-old gentleman in no acute distress at the time of my examination HEENT: Head is atraumatic, normocephalic. Pupils equal, round. Sclera anicteric. Conjunctiva are clear. Mucous membranes of the mouth are moist. Neck is supple. There is no elevated jugular venous pressure. No carotid bruit is heard. HEART EXAMINATION: S1 and S2 irregularly irregular a systolic murmur is heard CHEST EXAMINATION: Lungs are clear to auscultation and precussion. No chest wall tenderness is noted on palpation or with deep breathing. ABDOMEN: Soft, nontender. Bowel sounds are heard. No organomegaly noted. EXTREMITIES: 2+ peripheral pulses with no evidence of peripheral edema and no calf tenderness noted. Right wrist has a small amount of ecchymosis, right groin small amount of ecchymosis, no hematoma. NEUROLOGIC patient is awake, alert and oriented 3 . . - Labs CBC & Chem 7: 07/13/20 07:24 07/14/20 09:52 Labs: Abnormal Lab Results - Last 24 Hours (Table) 07/14/20 Range/Units 09:52 Chloride 97 L (98-107) mmol/L Carbon Dioxide 35 H (22-30) mmol/L BUN 29 H (9-20) mg/dL Glucose 139 H (74-99) mg/dL Microbiology - Last 24 Hours (Table) 07/10/20 12:02 Blood Culture - Preliminary Blood No Growth after 72 hours Assessment and Plan Plan: Assessment and plan #1 status post angioplasty and stenting of the circumflex artery #2 paroxysmal atrial fibrillation #3 chronic systolic congestive heart failure #4 coronary artery disease with prior PCI #5 history of aortic valve replacement #6 hypertension #7 hyperlipidemia #8 ischemic cardiomyopathy with documented ejection fraction of 20-25% #9 run of nonsustained ventricular tachycardia Plan From cardiology's perspective, the patient may be able to be discharged home. He was advised by Dr. Roman to have a LifeVest placed prior to discharge however the patient at this time refuses. We will continue current medications, I will also check with Dr. Olsen regarding reinitiating oral anticoagulation. We'll make him a follow-up appointment in the office post discharge. DNP note has been reviewed, I agree with a documented findings and plan of care. Patient was seen and examined.
== END 2020-07-14 10:53 | disposition home or self-care (01) | DRG 246 ==
LOC: EC 08:47 → 3SCARD 11:09
PROVIDERS: ADMIT Family Medicine; ATTEND Family Medicine
PROC: B2111ZZ Fluoroscopy of Multiple Coronary Arteries using Low Osmolar Contrast (ICD-10-PCS; principal; 2020-07-13 10:30)
PROC: 027034Z Dilation of Coronary Artery, One Artery with Drug-eluting Intraluminal Device, Percutaneous Approach (ICD-10-PCS; principal; 2020-07-13 10:30)
PROC: 4A023N7 Measurement of Cardiac Sampling and Pressure, Left Heart, Percutaneous Approach (ICD-10-PCS; principal; 2020-07-13 10:30)
DX: I11.0 Hypertensive heart disease with heart failure (principal); J18.9 Pneumonia, unspecified organism; I47.2 Ventricular tachycardia; I50.23 Acute on chronic systolic (congestive) heart failure; I27.22 Pulmonary hypertension due to left heart disease; I48.0 Paroxysmal atrial fibrillation; Z20.828 Contact with and (suspected) exposure to other viral communicable diseases; I25.10 Atherosclerotic heart disease of native coronary artery without angina pectoris; E78.5 Hyperlipidemia, unspecified; M19.90 Unspecified osteoarthritis, unspecified site; E66.9 Obesity, unspecified; I08.1 Rheumatic disorders of both mitral and tricuspid valves; I25.84 Coronary atherosclerosis due to calcified coronary lesion; I25.5 Ischemic cardiomyopathy; I25.2 Old myocardial infarction; Z68.32 Body mass index [BMI] 32.0-32.9, adult; Z79.82 Long term (current) use of aspirin; Z79.899 Other long term (current) drug therapy; Z79.01 Long term (current) use of anticoagulants; Z96.659 Presence of unspecified artificial knee joint; Z90.49 Acquired absence of other specified parts of digestive tract; Z95.5 Presence of coronary angioplasty implant and graft; Z95.1 Presence of aortocoronary bypass graft; Z95.2 Presence of prosthetic heart valve; Z71.3 Dietary counseling and surveillance; Z82.49 Family history of ischemic heart disease and other diseases of the circulatory system; Z83.79 Family history of other diseases of the digestive system
CPT/HCPCS: 36415; 71045; 71046; 80048; 80053; 82248; 83605; 83735; 83880; 84145; 84484; 85025; 85379; 85610; 85730; 87040; 87635; 93005; 93458; 96365; 96366; 96367; 96375; 99291

== ENCOUNTER 2020-07-19 09:20 | Emergency (ER) | payer MEDICARE ==
[2020-07-19 09:28] VITALS: TEMP 98.8
[2020-07-19] MEDS ORDERED: FUROSEMIDE 10 MG/ML 4 ML VIAL IV STA (09:42)
[2020-07-19] MEDS ORDERED: IPRATROPIUM-ALBUTEROL 3 ML NEB INHALATION STA (09:43)
--- NOTE | 2020-07-19 09:49 | ED ---
SOB HPI - General Stated Complaint: SOB Time Seen by Provider: 07/19/20 09:30 Source: patient, RN notes reviewed Mode of arrival: wheelchair Limitations: no limitations - History of Present Illness Initial Comments: This is a 80-year-old male with a recent admission for atrial fibrillation with a rapid ventricular response as well as pneumonia who is also followed was here to have a coronary artery blockage with a stent procedure done who presents today with 2 days' shortness of breath exertional dyspnea orthopnea has a cough when he tries to breathe but no phlegm production no fevers chills sweats no chest pain. He states it feels very similar to his previous admission. No other current complaints or modifying factors MD Complaint: shortness of breath, cough - Related Data Home Medications Medication Instructions Recorded Confirmed Aspirin [Adult Low Dose Aspirin EC] 81 mg PO DAILY 10/18/18 07/10/20 Enalapril Maleate [Vasotec] 2.5 mg PO DAILY 10/18/18 07/10/20 Metoprolol Tartrate [Lopressor] 50 mg PO BID 10/18/18 07/10/20 Rivaroxaban [Xarelto] 20 mg PO DAILY 10/18/18 07/10/20 Albuterol Sulfate [Ventolin HFA] 2 puff INHALATION RT-QID PRN 05/13/20 07/10/20 Amoxicillin/Potassium Clav 1 tab PO Q12HR 05/13/20 07/10/20 [Augmentin 875-125 Tablet] Albuterol Nebulized [Ventolin 2.5 mg INHALATION RT-Q6H PRN 07/10/20 07/10/20 Nebulized] Cholecalciferol [Vitamin D3 (25 2,000 unit PO DAILY 07/10/20 07/10/20 Mcg = 1000 Iu)] Rosuvastatin Calcium [Crestor] 5 mg PO SUMOWEFRSA 07/10/20 07/10/20 Previous Rx's Medication Instructions Recorded Spironolactone [Aldactone] 25 mg PO DAILY #30 tab 05/16/20 Amiodarone [Cordarone] 400 mg PO BID #60 tab 07/14/20 Clopidogrel [Plavix] 75 mg PO DAILY #30 tab 07/14/20 Furosemide [Lasix] 80 mg PO BID@0900,1600 #60 tab 07/14/20 Azithromycin [Zithromax Z-pack (6 250 mg PO DIRECTED 5 Days #6 tab 07/19/20 tabs)] Allergies Allergy/AdvReac Type Severity Reaction Status Date / Time No Known Allergies Allergy Verified 07/19/20 09:27 Review of Systems ROS Statement: Those systems with pertinent positive or pertinent negative responses have been documented in the HPI. ROS Other: All systems not noted in ROS Statement are negative. Past Medical History Past Medical History: Atrial Fibrillation, Coronary Artery Disease (CAD), Heart Failure, Hyperlipidemia, Hypertension, Myocardial Infarction ([place]) Additional Past Medical History / Comment(s): mi x 3. fx rt hand Last Myocardial Infarction Date:: 2003 History of Any Multi-Drug Resistant Organisms: None Reported Past Surgical History: Cholecystectomy, Coronary Bypass/CABG, Heart Catheterization With Stent, Joint Replacement Additional Past Surgical History / Comment(s): ascending aortic and [facility], 3 knee replacement, 3 stents total Past Anesthesia/Blood Transfusion Reactions: No Reported Reaction Date of Last Stent Placement:: 2008 Past Psychological History: No Psychological Hx Reported Smoking Status: Never smoker Past Alcohol Use History: Occasional Past Drug Use History: None Reported - Past Family History Mother Family Medical History: Coronary Artery Disease (CAD), Liver Disease Brother(s) Family Medical History: Congestive Heart Failure (CHF) Additional Family Medical History / Comment(s): heart transplant General Exam - General Exam Comments Initial Comments: This is a well-developed well-nourished awake alert oriented 3 male Limitations: no limitations General appearance: alert Head exam: Present: atraumatic, normocephalic, normal inspection Eye exam: Present: normal appearance, PERRL, EOMI. Absent: scleral icterus, conjunctival injection, periorbital swelling ENT exam: Present: normal exam, mucous membranes moist Neck exam: Present: normal inspection. Absent: tenderness, meningismus, lymphadenopathy Respiratory exam: Present: rales (Right lower lobe rales), decreased breath sounds. Absent: respiratory distress, wheezes, rhonchi, stridor Cardiovascular Exam: Present: irregular rhythm. Absent: systolic murmur, diastolic murmur, rubs, gallop, clicks GI/Abdominal exam: Present: soft, normal bowel sounds. Absent: distended, tenderness, guarding, rebound, rigid Extremities exam: Present: normal inspection, full ROM, normal capillary refill. Absent: tenderness, pedal edema, joint swelling, calf tenderness Back exam: Present: normal inspection Neurological exam: Present: alert, oriented X3, CN II-XII intact Psychiatric exam: Present: normal affect, normal mood Skin exam: Present: warm, dry, intact, normal color. Absent: rash Course Vital Signs 07/19/20 07/19/20 07/19/20 09:26 10:07 10:14 Temperature 98.8 F Pulse Rate 90 90 87 Respiratory 20 Rate Blood Pressure 135/86 O2 Sat by Pulse 91 L Oximetry Medical Decision Making - Medical Decision Making I did a long discussion with patient regarding the findings. I did reevaluate him several occasions. He is feeling good, except for the exertional dyspnea. We did discuss admission. The patient is refusing at this time. 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 He has planned. I did caution him about this he is invited back at any time. Did discuss return parameters. He'll be discharged on antibiotics and instructions for diuretic. The presentation consistent with a pneumonia as well as CHF the review of the BNP is improved compared to previous ones. - Lab Data Result diagrams: 07/19/20 09:57 07/19/20 09:57 Lab Results 07/19/20 07/19/20 07/19/20 Range/Units 09:57 09:57 09:57 WBC 7.7 (3.8-10.6) k/uL RBC 4.17 L (4.30-5.90) m/uL Hgb 13.8 (13.0-17.5) gm/dL Hct 40.4 (39.0-53.0) % MCV 97.0 (80.0-100.0) fL MCH 33.1 (25.0-35.0) pg MCHC 34.1 (31.0-37.0) g/dL RDW 13.0 (11.5-15.5) % Plt Count 155 (150-450) k/uL MPV 7.0 Neutrophils % 80 % Lymphocytes % 5 % Monocytes % 10 % Eosinophils % 1 % Basophils % 2 % Neutrophils # 6.2 (1.3-7.7) k/uL Lymphocytes # 0.4 L (1.0-4.8) k/uL Monocytes # 0.7 (0-1.0) k/uL Eosinophils # 0.1 (0-0.7) k/uL Basophils # 0.2 (0-0.2) k/uL PT 17.5 H (9.0-12.0) sec INR 1.8 H (<1.2) APTT 39.6 H (22.0-30.0) sec Sodium 134 L (137-145) mmol/L Potassium 4.3 (3.5-5.1) mmol/L Chloride 100 (98-107) mmol/L Carbon Dioxide 27 (22-30) mmol/L Anion Gap 7 mmol/L BUN 18 (9-20) mg/dL Creatinine 1.00 (0.66-1.25) mg/dL Est GFR (CKD-EPI)AfAm 82 (>60 ml/min/1.73 sqM) Est GFR (CKD-EPI)NonAf 71 (>60 ml/min/1.73 sqM) Glucose 131 H (74-99) mg/dL Plasma Lactic Acid Davion (0.7-2.0) mmol/L Calcium 9.0 (8.4-10.2) mg/dL Magnesium 1.9 (1.6-2.3) mg/dL Total Bilirubin 1.8 H (0.2-1.3) mg/dL AST 46 (17-59) U/L ALT 39 (4-49) U/L Alkaline Phosphatase 39 (38-126) U/L Creatine Kinase 84 (55-170) U/L Troponin I (0.000-0.034) ng/mL NT-Pro-B Natriuret Pep pg/mL Total Protein 6.7 (6.3-8.2) g/dL Albumin 3.9 (3.5-5.0) g/dL 07/19/20 07/19/20 07/19/20 Range/Units 09:57 09:57 09:57 WBC (3.8-10.6) k/uL RBC (4.30-5.90) m/uL Hgb (13.0-17.5) gm/dL Hct (39.0-53.0) % MCV (80.0-100.0) fL MCH (25.0-35.0) pg MCHC (31.0-37.0) g/dL RDW (11.5-15.5) % Plt Count (150-450) k/uL MPV Neutrophils % % Lymphocytes % % Monocytes % % Eosinophils % % Basophils % % Neutrophils # (1.3-7.7) k/uL Lymphocytes # (1.0-4.8) k/uL Monocytes # (0-1.0) k/uL Eosinophils # (0-0.7) k/uL Basophils # (0-0.2) k/uL PT (9.0-12.0) sec INR (<1.2) APTT (22.0-30.0) sec Sodium (137-145) mmol/L Potassium (3.5-5.1) mmol/L Chloride (98-107) mmol/L Carbon Dioxide (22-30) mmol/L Anion Gap mmol/L BUN (9-20) mg/dL Creatinine (0.66-1.25) mg/dL Est GFR (CKD-EPI)AfAm (>60 ml/min/1.73 sqM) Est GFR (CKD-EPI)NonAf (>60 ml/min/1.73 sqM) Glucose (74-99) mg/dL Plasma Lactic Acid Davion 1.1 (0.7-2.0) mmol/L Calcium (8.4-10.2) mg/dL Magnesium (1.6-2.3) mg/dL Total Bilirubin (0.2-1.3) mg/dL AST (17-59) U/L ALT (4-49) U/L Alkaline Phosphatase (38-126) U/L Creatine Kinase (55-170) U/L Troponin I <0.012 (0.000-0.034) ng/mL NT-Pro-B Natriuret Pep 3970 pg/mL Total Protein (6.3-8.2) g/dL Albumin (3.5-5.0) g/dL - EKG Data -: EKG Interpreted by Me EKG Comments: A defibrillator a rate of 81 QRS 120 QT cyst QTc 412/478 nonspecific inferior changes nonspecific ST-T wave configuration - Radiology Data Radiology results: report reviewed (I did review the imaging and report or is evidence of a right midlung infiltrate new since the last x-rays.), image reviewed Disposition Clinical Impression: Pneumonitis, CHF (congestive heart failure), Exertional dyspnea, Chronic atrial fibrillation Disposition: HOME SELF-CARE Condition: Stable Additional Instructions: Continue with your current medications including the Lasix. Prescriptions: Azithromycin [Zithromax Z-pack (6 tabs)] 250 mg PO DIRECTED 5 Days #6 tab Is patient prescribed a controlled substance at d/c from ED?: No Referrals: Sunny Pruitt MD [Primary Care Provider] - 1-2 days
[2020-07-19] MEDS ORDERED: DILTIAZEM DRIP BOLUS FROM BAG 1 MG SOLN IV ONE (09:53)
[2020-07-19] MEDS ORDERED: DILTIAZEM 125 MG in SODIUM CHLORIDE 0.9% 100 ML IV SCH (10:00)
[2020-07-19 10:10] LABS: Basophils # (A) 0.2 k/uL (0-0.2); Basophils % (A) 2 %; Eosinophils # (A) 0.1 k/uL (0-0.7); Eosinophils % (A) 1 %; HCT 40.4 % (39.0-53.0); HGB 13.8 gm/dL (13.0-17.5); Lymphocytes # (A) 0.4 k/uL (1.0-4.8); Lymphocytes % (A) 5 %; MCH 33.1 pg (25.0-35.0); MCHC 34.1 g/dL (31.0-37.0); Monocytes # (A) 0.7 k/uL (0-1.0); Monocytes % (A) 10 %; Neutrophils # (A) 6.2 k/uL (1.3-7.7); Neutrophils % (A) 80 %; Platelet Count 155 k/uL (150-450); RBC 4.17 m/uL (4.30-5.90); WBC 7.7 k/uL (3.8-10.6)
[2020-07-19 10:20] LABS: INR 1.8 (<1.2); Partial Thromboplastin Time 39.6 sec (22.0-30.0); Prothrombin Time 17.5 sec (9.0-12.0)
[2020-07-19 10:45] LABS: Albumin 3.9 g/dL (3.5-5.0); Magnesium 1.9 mg/dL (1.6-2.3); Potassium 4.3 mmol/L (3.5-5.1); Total Bilirubin 1.8 mg/dL (0.2-1.3); Total Protein 6.7 g/dL (6.3-8.2)
--- NOTE | 2020-07-19 10:54 | XR ---
EXAMINATION TYPE: XR chest 2V DATE OF EXAM: 07/19/2020 COMPARISON: 07/11/2020 HISTORY: 80 year-old male shortness of breath, difficulty breathing TECHNIQUE: PA and lateral views FINDINGS: Heart mildly enlarged. Median sternotomy wires. Atherosclerotic arch calcifications. If opacity in th e right midlung. No sizable effusion. IMPRESSION: 1. Cardiomegaly. 2. Focal right midlung opacity/pneumonia. Clinically correlate.
[2020-07-19] MEDS ORDERED: cefTRIAXone IN SWFI 1,000 MG/10 ML SYRINGE IVP STA (12:51)
[2020-07-19 12:58] VITALS: BP 124/90; PULSE 86; RESP 22
[2020-07-19] MEDS ORDERED: AZITHROMYCIN 500 MG TAB PO STA (12:58)
== END 2020-07-19 13:31 | disposition home or self-care (01) ==
LOC: EC 09:20
DX: J18.9 Pneumonia, unspecified organism (principal); I48.20 Chronic atrial fibrillation, unspecified; I11.0 Hypertensive heart disease with heart failure; I50.9 Heart failure, unspecified; E78.5 Hyperlipidemia, unspecified; I25.2 Old myocardial infarction; I25.119 Atherosclerotic heart disease of native coronary artery with unspecified angina pectoris; Z79.51 Long term (current) use of inhaled steroids; Z79.899 Other long term (current) drug therapy; Z79.01 Long term (current) use of anticoagulants; Z79.82 Long term (current) use of aspirin; Z82.49 Family history of ischemic heart disease and other diseases of the circulatory system; Z95.5 Presence of coronary angioplasty implant and graft; Z95.1 Presence of aortocoronary bypass graft; Z95.4 Presence of other heart-valve replacement
CPT/HCPCS: 36415; 94640; 93005; 83880; 80053; 82550; 83605; 83735; 84484; 85025; 85610; 85730; 71046; 96374; 96375; 99285; J1940; J0696

== ENCOUNTER 2020-09-01 06:52 | Inpatient (IN) | payer MEDICARE ==
[2020-09-01] MEDS ORDERED: ALBUTEROL NEBULIZED 2.5 MG/3 ML INHALATION STA (07:00)
[2020-09-01] MEDS ORDERED: SODIUM CHLORIDE 0.9% 1,000 ML IV STA (07:00)
--- NOTE | 2020-09-01 07:07 | ED ---
General Adult HPI - General Stated complaint: SOB Time Seen by Provider: 09/01/20 06:53 Source: RN notes reviewed, old records reviewed - History of Present Illness Initial comments: Patient is an 80-year-old male presented to the emergency room today with a chief complaint of increased shortness of breath over the last few days. He does admit that he's had some mild cough. He does admit to history of A. fib, pneumonia over the last month. Patient states is currently not on the antibiotics. He denies any fever or chills. Denies any known sick contacts. Patient denies any increased swelling to his legs. Patient does admit that he is on oxygen 2-4 L at home 24 hours a day. Patient states she's been feeling more short of breath over the last 2 days. Denies any pain. Denies any other complaints or symptoms. Patient denies any recent fever, chills, chest pain, back pain, abdominal pain, headaches or visual changes, or any other complaints. - Related Data Home Medications Medication Instructions Recorded Confirmed Aspirin [Adult Low Dose Aspirin EC] 81 mg PO DAILY 10/18/18 09/01/20 Enalapril Maleate [Vasotec] 2.5 mg PO DAILY 10/18/18 09/01/20 Metoprolol Tartrate [Lopressor] 50 mg PO BID 10/18/18 09/01/20 Rivaroxaban [Xarelto] 20 mg PO DAILY 10/18/18 09/01/20 Albuterol Sulfate [Ventolin HFA] 2 puff INHALATION RT-QID PRN 05/13/20 09/01/20 Albuterol Nebulized [Ventolin 2.5 mg INHALATION RT-Q6H PRN 07/10/20 09/01/20 Nebulized] Cholecalciferol [Vitamin D3 (25 2,000 unit PO DAILY 07/10/20 09/01/20 Mcg = 1000 Iu)] Rosuvastatin Calcium [Crestor] 5 mg PO SUMOWEFRSA 07/10/20 09/01/20 Previous Rx's Medication Instructions Recorded Amiodarone [Cordarone] 400 mg PO BID #60 tab 07/14/20 Clopidogrel [Plavix] 75 mg PO DAILY #30 tab 07/14/20 Furosemide [Lasix] 80 mg PO BID@0900,1600 #60 tab 07/14/20 Allergies Allergy/AdvReac Type Severity Reaction Status Date / Time No Known Allergies Allergy Verified 09/01/20 08:20 Review of Systems ROS Statement: Those systems with pertinent positive or pertinent negative responses have been documented in the HPI. ROS Other: All systems not noted in ROS Statement are negative. Past Medical History Past Medical History: Atrial Fibrillation, Coronary Artery Disease (CAD), Heart Failure, Hyperlipidemia, Hypertension, Myocardial Infarction ([place]) Additional Past Medical History / Comment(s): mi x 3. fx rt hand Last Myocardial Infarction Date:: 2003 History of Any Multi-Drug Resistant Organisms: None Reported Past Surgical History: Cholecystectomy, Coronary Bypass/CABG, Heart Catheterization With Stent, Joint Replacement Additional Past Surgical History / Comment(s): ascending aortic and bicuspid v alve replacement at [facility], 3 knee replacement, 3 stents total Past Anesthesia/Blood Transfusion Reactions: No Reported Reaction Date of Last Stent Placement:: 2008 Past Psychological History: No Psychological Hx Reported Smoking Status: Never smoker Past Alcohol Use History: Occasional Past Drug Use History: None Reported - Past Family History Mother Family Medical History: Coronary Artery Disease (CAD), Liver Disease Brother(s) Family Medical History: Congestive Heart Failure (CHF) Additional Family Medical History / Comment(s): heart transplant General Exam - General Exam Comments Initial Comments: General: The patient is awake and alert, in no distress, and does not appear acutely ill. Eye: extra-ocular movements are intact. No nystagmus. There is normal conjunctiva bilaterally. No signs of icterus. Ears, nose, mouth and throat: There are moist mucous membranes and no oral lesions. Neck: The neck is supple, there is no tenderness or JVD. Cardiovascular: There is a regular rate and rhythm. No murmur, rub or gallop is appreciated. Respiratory: Decreased lung sounds. respirations are non-labored, breath sounds are equal. No wheezes, stridor, rales, or rhonchi. Musculoskeletal: Normal ROM, no tenderness. Strength 5/5. Sensation intact. Pulses equal bilaterally 2+. Neurological: A&O x 3. CN II-XII intact, There are no obvious motor or sensory deficits. Coordination appears grossly intact. Speech is normal. Skin: Skin is warm and dry and no rashes or lesions are noted. Psychiatric: Cooperative, appropriate mood & affect, normal judgment. Course Vital Signs 09/01/20 09/01/20 09/01/20 06:59 07:21 07:31 Temperature 98.8 F Pulse Rate 97 80 Respiratory 30 H 24 Rate Blood Pressure 157/89 O2 Sat by Pulse 95 Oximetry 09/01/20 09/01/20 09/01/20 07:44 08:00 08:07 Temperature Pulse Rate 81 72 84 Respiratory 20 Rate Blood Pressure 114/74 O2 Sat by Pulse 99 Oximetry EKG Findings - EKG Comments: EKG Findings:: EKG performed at 708: Shows atrial fibrillation at 98 bpm. QRS 138. QT/QTc is 380/485. No acute ST changes. Medical Decision Making - Medical Decision Making Patient's x-ray reviewed and does show evidence for CHF. Patient given dose of Lasix here in emergency room. No lobular pneumonia is seen. Patient does have 13,000 white count. Patient given 1 dose of Rocephin here in emergency room to cover for infection. Lactic acid was 2.1. Blood pressure is stable. Patient was tachypneic and hypoxic per EMS. He was on nonrebreather on arrival here to emergency room was still showing accessory muscle use and was given breathing treatment with some relief and placed on BiPAP. Patient more comfortable at this time. Will be admitted to the hospital. - Lab Data Result diagrams: 09/01/20 07:03 09/01/20 07:03 Lab Results 09/01/20 09/01/20 09/01/20 Range/Units 07:03 07:03 07:03 WBC 13.7 H (3.8-10.6) k/uL RBC 4.86 (4.30-5.90) m/uL Hgb 15.5 (13.0-17.5) gm/dL Hct 48.4 (39.0-53.0) % MCV 99.6 (80.0-100.0) fL MCH 32.0 (25.0-35.0) pg MCHC 32.1 (31.0-37.0) g/dL RDW 14.0 (11.5-15.5) % Plt Count 251 (150-450) k/uL MPV 7.0 Neutrophils % 83 % Lymphocytes % 9 % Monocytes % 6 % Eosinophils % 0 % Basophils % 0 % Neutrophils # 11.4 H (1.3-7.7) k/uL Lymphocytes # 1.3 (1.0-4.8) k/uL Monocytes # 0.8 (0-1.0) k/uL Eosinophils # 0.1 (0-0.7) k/uL Basophils # 0.0 (0-0.2) k/uL PT 16.3 H (9.0-12.0) sec INR 1.6 H (<1.2) APTT 28.8 (22.0-30.0) sec Sodium 132 L (137-145) mmol/L Potassium 5.0 (3.5-5.1) mmol/L Chloride 92 L (98-107) mmol/L Carbon Dioxide 31 H (22-30) mmol/L Anion Gap 9 mmol/L BUN 21 H (9-20) mg/dL Creatinine 1.21 (0.66-1.25) mg/dL Est GFR (CKD-EPI)AfAm 65 (>60 ml/min/1.73 sqM) Est GFR (CKD-EPI)NonAf 56 (>60 ml/min/1.73 sqM) Glucose 204 H (74-99) mg/dL Plasma Lactic Acid Davion (0.7-2.0) mmol/L Calcium 10.0 (8.4-10.2) mg/dL Total Bilirubin 3.3 H (0.2-1.3) mg/dL AST 43 (17-59) U/L ALT 27 (4-49) U/L Alkaline Phosphatase 50 (38-126) U/L Troponin I (0.000-0.034) ng/mL Total Protein 8.8 H (6.3-8.2) g/dL Albumin 5.1 H (3.5-5.0) g/dL Coronavirus (PCR) (Not Detectd) 09/01/20 09/01/20 09/01/20 Range/Units 07:03 07:03 07:23 WBC (3.8-10.6) k/uL RBC (4.30-5.90) m/uL Hgb (13.0-17.5) gm/dL Hct (39.0-53.0) % MCV (80.0-100.0) fL MCH (25.0-35.0) pg MCHC (31.0-37.0) g/dL RDW (11.5-15.5) % Plt Count (150-450) k/uL MPV Neutrophils % % Lymphocytes % % Monocytes % % Eosinophils % % Basophils % % Neutrophils # (1.3-7.7) k/uL Lymphocytes # (1.0-4.8) k/uL Monocytes # (0-1.0) k/uL Eosinophils # (0-0.7) k/uL Basophils # (0-0.2) k/uL PT (9.0-12.0) sec INR (<1.2) APTT (22.0-30.0) sec Sodium (137-145) mmol/L Potassium (3.5-5.1) mmol/L Chloride (98-107) mmol/L Carbon Dioxide (22-30) mmol/L Anion Gap mmol/L BUN (9-20) mg/dL Creatinine (0.66-1.25) mg/dL Est GFR (CKD-EPI)AfAm (>60 ml/min/1.73 sqM) Est GFR (CKD-EPI)NonAf (>60 ml/min/1.73 sqM) Glucose (74-99) mg/dL Plasma Lactic Acid Davion 2.1 H* (0.7-2.0) mmol/L Calcium (8.4-10.2) mg/dL Total Bilirubin (0.2-1.3) mg/dL AST (17-59) U/L ALT (4-49) U/L Alkaline Phosphatase (38-126) U/L Troponin I <0.012 (0.000-0.034) ng/mL Total Protein (6.3-8.2) g/dL Albumin (3.5-5.0) g/dL Coronavirus (PCR) Not Detected (Not Detectd) Disposition Clinical Impression: CHF exacerbation, Hypoxia Disposition: ADMITTED IP TO THIS HOSP Condition: Stable Is patient prescribed a controlled substance at d/c from ED?: No Referrals: Sunny Pruitt MD [Primary Care Provider] - 1-2 days Time of Disposition: 08:36
[2020-09-01 07:12] LABS: Basophils % (A) 0 %; Eosinophils # (A) 0.1 k/uL (0-0.7); Eosinophils % (A) 0 %; HCT 48.4 % (39.0-53.0); HGB 15.5 gm/dL (13.0-17.5); Lymphocytes # (A) 1.3 k/uL (1.0-4.8); Lymphocytes % (A) 9 %; MCHC 32.1 g/dL (31.0-37.0); MCV 99.6 fL (80.0-100.0); Monocytes # (A) 0.8 k/uL (0-1.0); Monocytes % (A) 6 %; Neutrophils # (A) 11.4 k/uL (1.3-7.7); Neutrophils % (A) 83 %; Platelet Count 251 k/uL (150-450); RBC 4.86 m/uL (4.30-5.90); WBC 13.7 k/uL (3.8-10.6)
[2020-09-01 07:19] LABS: INR 1.6 (<1.2); Partial Thromboplastin Time 28.8 sec (22.0-30.0); Prothrombin Time 16.3 sec (9.0-12.0)
[2020-09-01 07:24] LABS: Albumin 5.1 g/dL (3.5-5.0); Total Bilirubin 3.3 mg/dL (0.2-1.3); Total Protein 8.8 g/dL (6.3-8.2)
--- NOTE | 2020-09-01 07:43 | XR ---
EXAMINATION TYPE: XR chest 1V portable DATE OF EXAM: 09/01/2020 Comparison: 07/19/2020 Clinical History: 80-year-old male SOB Findings: Median sternotomy wires are present. Heart remains mildly enlarged. Lung volumes have diminished in t he interval and there is increasing diffuse interstitial opacity. Possible small effusions now presen t. Impression: Hypoventilatory changes with increased diffuse interstitial density and small effusions with cardiome camille. Correlate for CHF with early interstitial edema.
[2020-09-01] MEDS ORDERED: FUROSEMIDE 10 MG/ML 4 ML VIAL IV STA (08:33)
[2020-09-01] MEDS ORDERED: cefTRIAXone IN SWFI 1,000 MG/10 ML SYRINGE IVP STA (08:33)
[2020-09-01] MEDS ORDERED: NALOXONE 0.4 MG/ML 1 ML VIAL IV PRN (09:13)
[2020-09-01] MEDS: CLOPIDOGREL 75 MG TAB PO SCH (10:47)
--- NOTE | 2020-09-01 15:09 | P.CNPUL ---
History of Present Illness Consult date: 09/01/20 Reason for consult: dyspnea, hypoxemia Chief complaint: Dyspnea, hypoxemia History of present illness: 80-year-old white gentleman with past medical history of A. fib on , hypertension, hyperlipidemia, CAD with previous intervention, aortic valve replacement. Patient is a nonsmoker. Patient had a heart catheterization on 07/13/2020 patient had a critical stenosis involving proximal left circumflex which was stented. The patient also had moderate disease involving the ostial mid LAD, mild RCA and echocardiogram showed diffuse global hypokinesis with ejection fraction of 20-25%. The aortic valve was adequately functioning. On 09/03/2020 patient name into the emergency department the chief complaint of increased shortness of breath over the last few days. Patient complains of mild cough. Denied any fever or chills, denied any known sick contacts. Ports increased swelling to his legs. Patient usually wears home oxygen at 2-4 L 24 hours a day. 's been more short of breath over the last 24 hours. Denies any chest pain, no nausea or vomiting, no abdominal pain no headaches. EKG showed A. fib with a rate of [address] changes. This x-ray was reviewed and showed evidence of CHF. Patient received a dose of Lasix in the emergency department. Lab data was reviewed showing white blood cell count of 13.7, hemoglobin 15.5, INR is 1.6, sodium is 132, potassium is 5.0, chloride is 92, CO2 31, B1 of 21 and creatinine is 1.2, plasma lactic acid was 1.9, proBNP was 3950, troponin was less than 0.012, COVID PCR was negative. Review of Systems All systems: negative Constitutional: Denies chills, Denies fever Eyes: denies blurred vision, denies pain Ears, nose, mouth and throat: Denies headache, Denies sore throat Cardiovascular: Denies chest pain, Denies shortness of breath Respiratory: Reports dyspnea, Denies cough Gastrointestinal: Denies abdominal pain, Denies diarrhea, Denies nausea, Denies vomiting Musculoskeletal: Denies myalgias Integumentary: Denies pruritus, Denies rash Neurological: Denies numbness, Denies weakness Psychiatric: Denies anxiety, Denies depression Endocrine: Denies fatigue, Denies weight change Past Medical History Past Medical History: Atrial Fibrillation, Coronary Artery Disease (CAD), Heart Failure, Hyperlipidemia, Hypertension, Myocardial Infarction ([place]) Additional Past Medical History / Comment(s): mi x 3. fx rt hand Last Myocardial Infarction Date:: 2003 History of Any Multi-Drug Resistant Organisms: None Reported Past Surgical History: Cholecystectomy, Coronary Bypass/CABG, Heart Cat heterization With Stent, Joint Replacement Additional Past Surgical History / Comment(s): ascending aortic and bicuspid [facility] at [facility], 3 knee replacement, 3 stents total Past Anesthesia/Blood Transfusion Reactions: No Reported Reaction Date of Last Stent Placement:: 2008 Past Psychological History: No Psychological Hx Reported Smoking Status: Never smoker Past Alcohol Use History: Occasional Past Drug Use History: None Reported - Past Family History Mother Family Medical History: Coronary Artery Disease (CAD), Liver Disease Brother(s) Family Medical History: Congestive Heart Failure (CHF) Additional Family Medical History / Comment(s): heart transplant Medications and Allergies Home Medications Medication Instructions Recorded Confirmed Type Aspirin [Adult Low Dose Aspirin EC] 81 mg PO DAILY 10/18/18 09/01/20 History Enalapril Maleate [Vasotec] 2.5 mg PO DAILY 10/18/18 09/01/20 History Metoprolol Tartrate [Lopressor] 50 mg PO BID 10/18/18 09/01/20 History Rivaroxaban [Xarelto] 20 mg PO DAILY 10/18/18 09/01/20 History Albuterol Sulfate [Ventolin HFA] 2 puff INHALATION RT-QID PRN 05/13/20 09/01/20 History Albuterol Nebulized [Ventolin 2.5 mg INHALATION RT-Q6H PRN 07/10/20 09/01/20 History Nebulized] Cholecalciferol [Vitamin D3 (25 2,000 unit PO DAILY 07/10/20 09/01/20 History Mcg = 1000 Iu)] Rosuvastatin Calcium [Crestor] 5 mg PO SUMOWEFRSA 07/10/20 09/01/20 History Amiodarone [Cordarone] 400 mg PO BID #60 tab 07/14/20 09/01/20 Rx Clopidogrel [Plavix] 75 mg PO DAILY #30 tab 07/14/20 09/01/20 Rx Furosemide [Lasix] 80 mg PO BID@0900,1600 #60 tab 07/14/20 09/01/20 Rx Allergies Allergy/AdvReac Type Severity Reaction Status Date / Time No Known Allergies Allergy Verified 09/01/20 08:20 Physical Exam Vitals: Vital Signs Temp Pulse Pulse Resp BP BP Pulse Ox 09/01/20 10:44 97.9 F 84 24 133/73 100 09/01/20 10:00 90 22 98 09/01/20 09:30 81 21 108/64 99 09/01/20 09:15 97 18 108/64 98 09/01/20 09:00 84 24 108/70 99 09/01/20 08:30 85 18 113/82 98 09/01/20 08:07 84 09/01/20 08:00 72 20 114/74 99 09/01/20 07:44 81 09/01/20 07:31 80 09/01/20 07:21 24 09/01/20 06:59 98.8 F 97 30 H 157/89 95 Intake and Output 08/31/20 09/01/20 09/01/20 22:59 06:59 14:59 Output Total 525 Balance -525 Output: Urine 525 Other: Weight 86.183 kg 86.183 kg GENERAL EXAM: Alert, very pleasant, 80-year-old white male, currently on BiPAP support, with FiO2 of 60% comfortable in no apparent distress. HEAD: Normocephalic/atraumatic. EYES: Normal reaction of pupils, equal size. Conjunctiva pink, sclera white. NOSE: Clear with pink turbinates. THROAT: No erythema or exudates. NECK: No masses, no JVD, no thyroid enlargement, no adenopathy. CHEST: No chest wall deformity. Symmetrical expansion. LUNGS: Equal air entry with basilar crackles CVS: Regular rate and rhythm, normal S1 and S2, no gallops, no murmurs, no rubs ABDOMEN: Soft, nontender. No hepatosplenomegaly, normal bowel sounds, no guarding or rigidity. EXTREMITIES: No clubbing, 1+ lower extremity edema no cyanosis, 2+ pulses and upper and lower extremities. MUSCULOSKELETAL: Muscle strength and tone normal. SPINE: No scoliosis or deformity SKIN: No rashes CENTRAL NERVOUS SYSTEM: Alert and oriented -3. No focal deficits, tone is normal in all 4 extremities. PSYCHIATRIC: Alert and oriented -3. Appropriate affect. Intact judgment and insight. Results - Laboratory Findings CBC and BMP: 09/01/20 07:03 01/18/21 07:03 PT/INR, D-dimer PT 16.3 sec (9.0-12.0) H 09/01/20 07:03 INR 1.6 (<1.2) H 09/01/20 07:03 Abnormal lab findings: Abnormal Labs 09/01/20 09/01/20 09/01/20 07:03 07:03 07:03 WBC 13.7 H Neutrophils # 11.4 H PT 16.3 H INR 1.6 H Sodium 132 L Chloride 92 L Carbon Dioxide 31 H BUN 21 H Glucose 204 H Plasma Lactic Acid Davion Total Bilirubin 3.3 H Total Protein 8.8 H Albumin 5.1 H 09/01/20 09/01/20 07:03 10:31 WBC Neutrophils # PT INR Sodium Chloride Carbon Dioxide BUN Glucose Plasma Lactic Acid Davion 2.1 H* 2.1 H* Total Bilirubin Total Protein Albumin - Diagnostic Findings Chest x-ray: report reviewed, image reviewed Assessment and Plan Plan: Assessment: #1. Acute on chronic hypoxic respiratory failure related to acute exacerbation of systolic CHF. COVID 19 ruled out #2. Recent history of stenting of the left circumflex artery artery on 07/13/2020 #3. Coronary artery disease with previous stenting #4. 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 Aortic valve stenosis status post surgical repair with aortic valve replacement #6. Chronic atrial fibrillation on Xarelto #7. Previous history of myocardial infarction #8. Hypertension #9. Hyperlipidemia #10. Lifelong nonsmoker Plan: Chest x-ray has been reviewed, patient was seen and evaluated along with Dr. Brooke. COVID 19 was ruled out. Patient's symptoms most likely related to acute exacerbation of systolic CHF. We'll start the patient on IV Lasix 40 mg twice daily, continue oral anticoagulation, and BiPAP support is needed, may switch to nasal cannula as tolerated, follow-up chest x-ray in the morning, a ccurate intake and output, daily labs, we'll continue to follow I performed a history & physical examination of the patient and discussed their management with my nurse practitioner, Wendy Mullen. I reviewed the nurse practitioner's note and agree with the documented findings and plan of care. Lung sounds are positive for bibasilar crackles. The findings and the impression was discussed with the patient. I attest to the documentation by the nurse practitioner. Time with Patient: Greater than 30
[2020-09-01] MEDS: METOPROLOL TARTRATE 50 MG TAB PO SCH (20:49)
[2020-09-01] MEDS: FUROSEMIDE 10 MG/ML 4 ML VIAL IV SCH (20:49)
[2020-09-02] MEDS ORDERED: ALBUTEROL HFA INHALER INHALATION PRN (08:09)
[2020-09-02] MEDS ORDERED: ALBUTEROL NEBULIZED 2.5 MG/3 ML INHALATION PRN (08:09)
--- NOTE | 2020-09-02 08:09 | P.HPIM ---
History of Present Illness H&P Date: 09/02/20 Chief Complaint: Shortness of breath. This is a history and physical an 80-year-old white male with known history of congestive heart failure who has been complaining of shortness of breath for the last several days. No nausea. Trace edema was noted and no voiding difficul ties are stated. No significant fever. Workup in emergency room did show recurrent systolic congestive heart failure. Review of Systems Constitutional: Denies chills, Denies fever Eyes: denies blurred vision, denies pain Ears, nose, mouth and throat: Denies headache, Denies sore throat Cardiovascular: Reports as per HPI, Reports dyspnea on exertion, Reports shortness of breath Respiratory: Denies cough Gastrointestinal: Denies abdominal pain, Denies diarrhea, Denies nausea, Denies vomiting Musculoskeletal: Denies myalgias Past Medical History Past Medical History: Atrial Fibrillation, Coronary Artery Disease (CAD), Heart Failure, Hyperlipidemia, Hypertension, Myocardial Infarction ([place]) Additional Past Medical History / Comment(s): mi x 3. fx rt hand Last Myocardial Infarction Date:: 2003 History of Any Multi-Drug Resistant Organisms: None Reported Past Surgical History: Cholecystectomy, Coronary Bypass/CABG, Heart Catheterization With Stent, Joint Replacement Additional Past Surgical History / Comment(s): ascending aortic and bicus[facility] 3 [facility] replacement, 3 stents total Past Anesthesia/Blood Transfusion Reactions: No Reported Reaction Date of Last Stent Placement:: 2008 Past Psychological History: No Psychological Hx Reported Smoking Status: Never smoker Past Alcohol Use History: Occasional Past Drug Use History: None Reported - Past Family History Mother Family Medical History: Coronary Artery Disease (CAD), Liver Disease Brother(s) Family Medical History: Congestive Heart Failure (CHF) Additional Family Medical History / Comment(s): heart transplant Medications and Allergies Home Medications Medication Instructions Recorded Confirmed Type Aspirin [Adult Low Dose Aspirin EC] 81 mg PO DAILY 10/18/18 09/01/20 History Enalapril Maleate [Vasotec] 2.5 mg PO DAILY 10/18/18 09/01/20 History Metoprolol Tartrate [Lopressor] 50 mg PO BID 10/18/18 09/01/20 History Rivaroxaban [Xarelto] 20 mg PO DAILY 10/18/18 09/01/20 History Albuterol Sulfate [Ventolin HFA] 2 puff INHALATION RT-QID PRN 05/13/20 09/01/20 History Albuterol Nebulized [Ventolin 2.5 mg INHALATION RT-Q6H PRN 07/10/20 09/01/20 History Nebulized] Cholecalciferol [Vitamin D3 (25 2,000 unit PO DAILY 07/10/20 09/01/20 History Mcg = 1000 Iu)] Rosuvastatin Calcium [Crestor] 5 mg PO SUMOWEFRSA 07/10/20 09/01/20 History Amiodarone [Cordarone] 400 mg PO BID #60 tab 07/14/20 09/01/20 Rx Clopidogrel [Plavix] 75 mg PO DAILY #30 tab 07/14/20 09/01/20 Rx Furosemide [Lasix] 80 mg PO BID@0900,1600 #60 tab 07/14/20 09/01/20 Rx Allergies Allergy/AdvReac Type Severity Reaction Status Date / Time No Known Allergies Allergy Verified 09/01/20 08:20 Physical Exam Vitals: Vital Signs Temp Pulse Pulse Resp BP BP Pulse Ox 09/02/20 05:13 98.1 F 88 18 108/68 98 09/01/20 23:49 97.7 F 90 18 116/65 98 09/01/20 20:40 97.8 F 107 H 18 106/65 97 09/01/20 16:00 97.9 F 84 20 101/66 94 L 09/01/20 15:57 97 09/01/20 10:44 97.9 F 84 24 133/73 100 09/01/20 10:00 90 22 98 09/01/20 09:30 81 21 108/64 99 09/01/20 09:15 97 18 108/64 98 09/01/20 09:00 84 24 108/70 99 09/01/20 08:30 85 18 113/82 98 Intake and Output 09/01/20 09/02/20 09/02/20 22:59 06:59 14:59 Intake Total 240 Output Total 80 Balance -80 240 Intake: Oral 240 Output: Urine 80 Other: Voiding Method Toilet Urinal # Voids 1 Weight 85.2 kg - Constitutional General appearance: cooperative, no acute distress - EENT Eyes: EOMI - Neck Neck: no lymphadenopathy - Respiratory Respiratory: bilateral: diminished - Cardiovascular Rhythm: irregularly irregular Heart sounds: normal: S1, S2 Abnormal Heart Sounds: no S3 Gallop - Gastrointestinal General gastrointestinal: soft - Neurologic Neurologic: CNII-XII intact - Psychiatric Psychiatric: A&O x's 3, appropriate affect Results CBC & Chem 7: 09/01/20 07:03 09/01/20 07:03 Labs: Abnormal Lab Results - Last 24 Hours (Table) 09/01/20 09/01/20 Range/Units 07:03 10:31 Plasma Lactic Acid Davion 2.1 H* 2.1 H* (0.7-2.0) mmol/L Thrombosis Risk Factor Assmnt - Choose All That Apply Any of the Below Risk Factors Present?: Yes Each Factor Represents 1 point: Heart failure (<1month) Other Risk Factors: Yes Each Risk Factor Represents 3 Points: Age 75 years or older Thrombosis Risk Factor Assessment Total Risk Factor Score: 4 Thrombosis Risk Factor Assessment Level: Moderate Risk Assessment and Plan (1) CHF exacerbation Current Visit: Yes Status: Acute Code(s): I50.9 - HEART FAILURE, UNSPECIFIED SNOMED Code(s): 356745727 (2) Hypoxia Current Visit: Yes Status: Acute Code(s): R09.02 - HYPOXEMIA SNOMED Code(s): 988362629 (3) Atrial fibrillation with rapid ventricular response Current Visit: No Status: Acute Code(s): I48.91 - UNSPECIFIED ATRIAL FIBRILLATION SNOMED Code(s): 543897266890937 Plan: Diuresis appropriately. Reconcile medications. Consult cardiology for appropriate medication adjustment assistance. Prognosis is guarded secondary to his multiple comorbidities and advancing age. See orders otherwise. Time with Patient: Greater than 30
[2020-09-02] MEDS: RIVAROXABAN 20 MG TAB PO SCH (08:39)
[2020-09-02] MEDS: lisinopriL 5 MG TAB PO SCH (08:39)
[2020-09-02] MEDS: FUROSEMIDE 10 MG/ML 4 ML VIAL IV SCH ×2 (08:39→20:07)
[2020-09-02] MEDS: METOPROLOL TARTRATE 50 MG TAB PO SCH ×2 (08:40→20:07)
[2020-09-02] MEDS: CLOPIDOGREL 75 MG TAB PO SCH (08:40)
[2020-09-02] MEDS ORDERED: ASPIRIN 81 MG PO SCH (09:00)
[2020-09-02] MEDS ORDERED: AMIODARONE 200 MG TAB PO SCH (09:00)
[2020-09-02] MEDS ORDERED: CHOLECALCIFEROL 1,000 UNIT TAB PO SCH (09:00)
--- NOTE | 2020-09-02 10:32 | P.PN ---
Subjective Progress Note Date: 09/02/20 80-year-old white gentleman with past medical history of A. fib on , hypertension, hyperlipidemia, CAD with previous intervention, aortic valve replacement. Patient is a nonsmoker. Patient had a heart catheterization on 07/13/2020 patient had a critical stenosis involving proximal left circumflex which was stented. The patient also had moderate disease involving the ostial mid LAD, mild RCA and echocardiogram showed diffuse global hypokinesis with ejection fraction of 20-25%. The aortic valve was adequately functioning. On 09/03/2020 patient name into the emergency department the chief complaint of increased shortness of breath over the last few days. Patient complains of mild cough. Denied any fever or chills, denied any known sick contacts. Ports increased swelling to his legs. Patient usually wears home oxygen at 2-4 L 24 hours a day. 's been more short of breath over the last 24 hours. Denies any chest pain, no nausea or vomiting, no abdominal pain no headaches. EKG showed A. fib with a rate of [address] changes. This x-ray was reviewed and showed evidence of CHF. Patient received a dose of Lasix in the emergency department. Lab data was reviewed showing white blood cell count of 13.7, hemoglobin 15.5, INR is 1.6, sodium is 132, potassium is 5.0, chloride is 92, CO2 31, B1 of 21 and creatinine is 1.2, plasma lactic acid was 1.9, proBNP was 3950, troponin was less than 0.012, COVID PCR was negative. On 09/02/2020 were patient seen in follow-up on selective care unit, he sitting up in bed awake and alert, oriented 3, appears to be in no acute distress, currently on 4 L of oxygen his pulse ox of 98%, his been afebrile, no complaints of chest pain. Been diuresed, he is in -600 mL fluid balance over the last 24 hours, and his weight down by 0.9 kg in the last 24 hours. Remains on Lasix at 40 mg twice daily, he is on oral anticoagulation the form is about the, his heart rate is controlled, heart rate is 86 BPM. His COVID 19 PCR was negative, there are no labs from today, we will obtain follow-up chest x-ray and labs in the morning, Objective - Vital Signs Vital signs: Vital Signs Temp 98 F 09/02/20 08:00 Pulse 86 09/02/20 08:00 Resp 18 09/02/20 08:00 BP 113/65 09/02/20 08:00 Pulse Ox 98 09/02/20 08:00 Intake & Output 09/01/20 09/02/20 09/02/20 18:59 06:59 18:59 Intake Total 240 Output Total 525 80 Balance -525 -80 240 Weight 86.183 kg 85.2 kg Intake: Oral 240 Output: Urine 525 80 Other: Voiding Method Toilet Urinal # Voids 0 1 - Exam GENERAL EXAM: Alert, very pleasant, 80-year-old white male, currently on 4 liters per nasal cannulacomfortable in no apparent distress. HEAD: Normocephalic/atraumatic. EYES: Normal reaction of pupils, equal size. Conjunctiva pink, sclera white. NOSE: Clear with pink turbinates. THROAT: No erythema or exudates. NECK: No masses, no JVD, no thyroid enlargement, no adenopathy. CHEST: No chest wall deformity. Symmetrical expansion. LUNGS: Equal air entry with basilar crackles CVS: Regular rate and rhythm, normal S1 and S2, no gallops, no murmurs, no rubs ABDOMEN: Soft, nontender. No hepatosplenomegaly, normal bowel sounds, no guarding or rigidity. EXTREMITIES: No clubbing, 1+ lower extremity edema no cyanosis, 2+ pulses and upper and lower extremities. MUSCULOSKELETAL: Muscle strength and tone normal. SPINE: No scoliosis or deformity SKIN: No rashes CENTRAL NERVOUS SYSTEM: Alert and oriented -3. No focal deficits, tone is normal in all 4 extremities. PSYCHIATRIC: Alert and oriented -3. Appropriate affect. Intact judgment and insight. - Labs CBC & Chem 7: 09/01/20 07:03 09/01/20 07:03 Labs: Abnormal Lab Results - Last 24 Hours (Table) 09/01/20 Range/Units 10:31 Plasma Lactic Acid Davion 2.1 H* (0.7-2.0) mmol/L Microbiology - Last 24 Hours (Table) 09/01/20 08:00 Blood Culture - Preliminary Blood No Growth after 24 hours Assessment and Plan Plan: Assessment: #1. Acute on chronic hypoxic respiratory failure related to acute exacerbation of systolic CHF. COVID 19 ruled out #2. Recent history of stenting of the left circumflex artery artery on 07/13/2020 #3. Coronary artery disease with previous stenting #4. 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 Aortic valve stenosis status post surgical repair with aortic valve replacement #6. Chronic atrial fibrillation on Xarelto #7. Previous history of myocardial infarction #8. Hypertension #9. Hyperlipidemia #10. Lifelong nonsmoker Plan: Patient is improving, breathing easier, he is in negative fluid balance, we'll continue diuretics for another 24 hours, follow-up labs, electrolytes renal profile in the morning, follow-up chest x-ray in the morning, may discontinue the BiPAP, wean down FiO2, increase activity as tolerated. I performed a history & physical examination of the patient and discussed their management with my nurse practitioner, Wendy Mullen. I reviewed the nurse practitioner's note and agree with the documented findings and plan of care. Lung sounds are positive for bibasilar crackles. The findings and the impression was discussed with the patient. I attest to the documentation by the nurse practitioner. Time with Patient: Less than 30
[2020-09-02 11:47] LABS: Basophils # (A) 0.1 k/uL (0-0.2); Basophils % (A) 0 %; Eosinophils # (A) 0.1 k/uL (0-0.7); Eosinophils % (A) 0 %; HCT 43.2 % (39.0-53.0); HGB 13.9 gm/dL (13.0-17.5); Hypochromasia Slight; Lymphocytes # (A) 1.2 k/uL (1.0-4.8); Lymphocytes % (A) 7 %; MCH 32.5 pg (25.0-35.0); MCHC 32.2 g/dL (31.0-37.0); MCV 100.8 fL (80.0-100.0); Macrocytosis Slight; Mean Platelet Volume 6.9; Monocytes # (A) 1.2 k/uL (0-1.0); Monocytes % (A) 7 %; Neutrophils # (A) 14.2 k/uL (1.3-7.7); Neutrophils % (A) 84 %; Platelet Count 196 k/uL (150-450); RBC 4.29 m/uL (4.30-5.90); RDW 13.7 % (11.5-15.5); WBC 16.8 k/uL (3.8-10.6)
[2020-09-02 11:59] LABS: Calcium 9.5 mg/dL (8.4-10.2); Potassium 4.6 mmol/L (3.5-5.1)
--- NOTE | 2020-09-02 13:35 | P.CRDCN ---
History of Present Illness Consult date: 09/02/20 History of present illness: CHIEF COMPLAINT: CHF HISTORY OF PRESENT ILLNESS: This is a 80-year-old male with a past medical hi story significant for chronic atrial fibrillation, congestive heart failure, hypertension, hyperlipidemia, aortic valve replacement, and coronary artery disease with previous PCI. Patient follows in the office with Dr. Olsen. We have been asked to see the patient in consultation for congestive heart failure. Patient underwent cardiac catheterization in June 2020 with stent placement to the left circumflex. Patient reports he has been having difficulty with shortness of breath since the stent was placed. He had an echocardiogram completed in April 2020 which revealed ejection fraction 20-25%. Patient was also having nonsustained V. tach. Patient states Dr. Olsen discussed poss ible AICD with him in the future. Patient had an echocardiogram completed at the office last week with an ejection fraction of 35-40%. Patient states his shortness of breath has worsened in severity over the last few days. He states he has been taking his Lasix as prescribed by Dr. Olsen. He states he is supposed to be taking 40mg BID. He states he does not like taking the lasix because he urinates all the time and he is unable to get anything else done during the day because he is always using the bathroom. DIAGNOSTICS: EKG reveals atrial fibrillation with controlled ventricular rate Chest xray CHF with early interstitial edema Laboratory data: WBC 16.8. Hemoglobin 13.9. Platelet count 196. Sodium 135. Potassium 4.6. BUN 32. Creatinine 1.22. Lactic acid 2.1. Repeat 1.9. Troponin negative 2. Current home cardiac medications include Crestor 5 mg Tuesday, Xarelto 20 mrem daily, metoprolol 50 mg twice a day, Lasix 40 mg twice a day, enalapril 2.5 mg daily, Plavix 75 mg daily, aspirin 81 mg daily, amiodarone 400 mg twice a day REVIEW OF SYSTEMS: At the time of my exam: CONSTITUTIONAL: Denies fever or chills. HEENT: Denies blurred vision, vision changes, or eye pain. Denies hemoptysis CARDIOVASCULAR: Denies chest pain, orthopnea, PND or palpitations RESPIRATORY: No shortness of breath. GASTROINTESTINAL: Denies abdominal pain. Denies nausea or vomiting. HEMATOLOGIC: Denies bleeding disorders. GENITOURINARY: Denies any blood in urine. SKIN: Denies pruitis. Denies rash. PHYSICAL EXAM: VITAL SIGNS: Reviewed. GENERAL: Well-developed in no acute distress. HEENT: Head is normocephalic. Pupils are equal, round. Sclerae anicteric. Mucous membranes of the mouth are moist. Neck supple. No JVD or thyromegaly LUNGS: Respirations even and unlabored. Lungs diminished with fine rales to the bases HEART: Irregular rate and rhythm. S1 and S2 heard. ABDOMEN: Soft. Nondistended. Nontender. EXTREMITIES: Normal range of motion. No clubbing or cyanosis. Peripheral pulses intact. No lower extremity edema NEUROLOGIC: Awake and alert. Oriented x 3. ASSESSMENT: Acute exacerbation of chronic systolic heart failure, EF 35-40% Chronic persistent atrial fibrillation, on anticoagulation with Xarelto Ischemic cardiomyopathy History of nonsustained ventricular tachycardia History of aortic valve replacement Hypertension Hyperlipidemia Coronary artery disease with previous PCI PLAN: Discontinue aspirin. Continue Plavix and Xarelto Decrease amiodarone to 200 mg twice a day Continue IV Lasix Monitor kidney function Daily weight Accurate I&O No indication for AICD at this time Further recommendations pending patient's course Nurse practitioner note has been reviewed by physician. Signing provider agrees with the documented findings, assessment, and plan of care. Past Medical History Past Medical History: Atrial Fibrillation, Coronary Artery Disease (CAD), Heart Failure, Hyperlipidemia, Hypertension, Myocardial Infarction (SD) Additional Past Medical History / Comment(s): mi x 3. fx rt hand Last Myocardial Infarction Date:: 2003 History of Any Multi-Drug Resistant Organisms: None Reported Past Surgical History: Cholecystectomy, Coronary Bypass/CABG, Heart Catheterization With Stent, Joint Replacement Additional Past Surgical History / Comment(s): ascending aortic and bicuspid [facility] at [facility], 3 knee replacement, 3 stents total Past Anesthesia/Blood Transfusion Reactions: No Reported Reaction Date of Last Stent Placement:: 2008 Past Psychological History: No Psychological Hx Reported Smoking Status: Never smoker Past Alcohol Use History: Occasional Past Drug Use History: None Reported - Past Family History Mother Family Medical History: Coronary Artery Disease (CAD), Liver Disease Brother(s) Family Medical History: Congestive Heart Failure (CHF) Additional Family Medical History / Comment(s): heart transplant Medications and Allergies Home Medications Medication Instructions Recorded Confirmed Type Aspirin [Adult Low Dose Aspirin EC] 81 mg PO DAILY 10/18/18 09/01/20 History Enalapril Maleate [Vasotec] 2.5 mg PO DAILY 10/18/18 09/01/20 History Metoprolol Tartrate [Lopressor] 50 mg PO BID 10/18/18 09/01/20 History Rivaroxaban [Xarelto] 20 mg PO DAILY 10/18/18 09/01/20 History Albuterol Sulfate [Ventolin HFA] 2 puff INHALATION RT-QID PRN 05/13/20 09/01/20 History Albuterol Nebulized [Ventolin 2.5 mg INHALATION RT-Q6H PRN 07/10/20 09/01/20 History Nebulized] Cholecalciferol [Vitamin D3 (25 2,000 unit PO DAILY 07/10/20 09/01/20 History Mcg = 1000 Iu)] Rosuvastatin Calcium [Crestor] 5 mg PO SUMOWEFRSA 07/10/20 09/01/20 History Amiodarone [Cordarone] 400 mg PO BID #60 tab 07/14/20 09/01/20 Rx Clopidogrel [Plavix] 75 mg PO DAILY #30 tab 07/14/20 09/01/20 Rx Furosemide [Lasix] 80 mg PO BID@0900,1600 #60 tab 07/14/20 09/01/20 Rx Allergies Allergy/AdvReac Type Severity Reaction Status Date / Time No Known Allergies Allergy Verified 09/01/20 08:20 Physical Exam Vitals: Vital Signs Temp Pulse Resp BP Pulse Ox 09/02/20 08:00 98 F 86 18 113/65 98 09/02/20 05:13 98.1 F 88 18 108/68 98 09/01/20 23:49 97.7 F 90 18 116/65 98 09/01/20 20:40 97.8 F 107 H 18 106/65 97 09/01/20 16:00 97.9 F 84 20 101/66 94 L 09/01/20 15:57 97 Intake and Output 09/01/20 09/02/20 09/02/20 22:59 06:59 14:59 Intake Total 490 Output Total 80 900 Balance -80 -410 Intake: Oral 490 Output: Urine 80 900 Other: Voiding Method Toilet Urinal # Voids 1 Weight 85.2 kg Results 09/02/20 11:16 09/02/20 11:16 Cardiac Enzymes 09/02/20 Range/Units 11:16 Troponin I <0.012 (0.000-0.034) ng/mL CBC 09/02/20 Range/Units 11:16 WBC 16.8 H (3.8-10.6) k/uL RBC 4.29 L (4.30-5.90) m/uL Hgb 13.9 (13.0-17.5) gm/dL Hct 43.2 (39.0-53.0) % Plt Count 196 (150-450) k/uL Comprehensive Metabolic Panel 09/02/20 Range/Units 11:16 Sodium 135 L (137-145) mmol/L Potassium 4.6 (3.5-5.1) mmol/L Chloride 94 L (98-107) mmol/L Carbon Dioxide 34 H (22-30) mmol/L BUN 32 H (9-20) mg/dL Creatinine 1.22 (0.66-1.25) mg/dL Glucose 121 H (74-99) mg/dL Calcium 9.5 (8.4-10.2) mg/dL Current Medications Generic Name Dose Route Start Last Admin Trade Name Freq PRN Reason Stop Dose Admin Albuterol Sulfate 2.5 mg 09/02/20 08:09 Albuterol Nebulized 2.5 Mg/3 Ml INHALATION RT-Q6H PRN Shortness Of Breath Amiodarone HCl 200 mg 09/02/20 21:00 Amiodarone 200 Mg Tab PO BID [facility] Aspirin 81 mg 09/02/20 09:00 09/02/20 08:40 Aspirin 81 Mg PO 81 mg DAILY JOSEY Administration Atorvastatin Calcium 10 mg 09/03/20 09:00 Atorvastatin 10 Mg Tab PO SUMOWEFRSA [facility] Cholecalciferol 50 mcg 09/03/20 09:00 Cholecalciferol 25 Mcg (1000 Iu) Tablet PO DAILY [facility] Clopidogrel Bisulfate 75 mg 09/01/20 10:45 09/02/20 08:40 Clopidogrel 75 Mg Tab PO 75 mg DAILY JOSEY Administration Furosemide 40 mg 09/01/20 21:00 09/02/20 08:39 Furosemide 10 Mg/Ml 4 Ml Vial IV 40 mg Q12HR JOSEY Administration Lisinopril 5 mg 09/02/20 09:00 09/02/20 08:39 Lisinopril 5 Mg Tab PO 5 mg DAILY JOSEY Administration Metoprolol Tartrate 50 mg 09/01/20 21:00 09/02/20 08:40 Metoprolol Tartrate 50 Mg Tab PO 50 mg BID JOSEY Administration Naloxone HCl 0.2 mg 09/01/20 09:13 Naloxone 0.4 Mg/Ml 1 Ml Vial IV Q2M PRN Opioid Reversal Rivaroxaban 20 mg 09/02/20 09:00 09/02/20 08:39 Rivaroxaban 20 Mg Tab PO 20 mg DAILY JOSEY Administration Intake and Output 09/01/20 09/02/20 09/02/20 22:59 06:59 14:59 Intake Total 490 Output Total 80 900 Balance -80 -410 Intake: Oral 490 Output: Urine 80 900 Other: Voiding Method Toilet Urinal # Voids 1 Weight 85.2 kg 09/02/20 11:16 09/02/20 11:16
[2020-09-02] MEDS: AMIODARONE 200 MG TAB PO SCH (20:07)
[2020-09-03] MEDS: AMIODARONE 200 MG TAB PO SCH (08:23)
[2020-09-03] MEDS: METOPROLOL TARTRATE 50 MG TAB PO SCH (08:24)
[2020-09-03] MEDS: lisinopriL 5 MG TAB PO SCH (08:24)
[2020-09-03] MEDS: CLOPIDOGREL 75 MG TAB PO SCH (08:24)
[2020-09-03] MEDS: RIVAROXABAN 20 MG TAB PO SCH (08:24)
[2020-09-03] MEDS: FUROSEMIDE 10 MG/ML 4 ML VIAL IV SCH (08:25)
[2020-09-03] MEDS ORDERED: CHOLECALCIFEROL 25 MCG (1000 IU) TABLET PO SCH (09:00)
[2020-09-03] MEDS ORDERED: ATORVASTATIN 10 MG TAB PO SCH (09:00)
--- NOTE | 2020-09-03 10:08 | XR ---
EXAMINATION TYPE: XR chest 1V portable DATE OF EXAM: 09/03/2020 COMPARISON: Chest x-ray 09/01/2020 HISTORY: Shortness of breath TECHNIQUE: Single frontal view of the chest is obtained. FINDINGS: Patient is post median sternotomy and rotated, lung volumes are low. Patchy density is pre sent within the lungs. There is dense. No pneumothorax. There are overlying artifacts, leads. Right h emidiaphragm remains elevated. Cardiac mediastinal silhouette is stable, heart appears enlarged. IMPRESSION: Correlate for pneumonia, edema with congestive failure, follow-up recommended a difficul t to exclude effusion
--- NOTE | 2020-09-03 10:28 | P.PN ---
Subjective Progress Note Date: 09/03/20 80-year-old white gentleman with past medical history of A. fib on , hypertension, hyperlipidemia, CAD with previous intervention, aortic valve replacement. Patient is a nonsmoker. Patient had a heart catheterization on 07/13/2020 patient had a critical stenosis involving proximal left circumflex which was stented. The patient also had moderate disease involving the ostial mid LAD, mild RCA and echocardiogram showed diffuse global hypokinesis with ejection fraction of 20-25%. The aortic valve was adequately functioning. On 09/03/2020 patient name into the emergency department the chief complaint of increased shortness of breath over the last few days. Patient complains of mild cough. Denied any fever or chills, denied any known sick contacts. Ports increased swelling to his legs. Patient usually wears home oxygen at 2-4 L 24 hours a day. 's been more short of breath over the last 24 hours. Denies any chest pain, no nausea or vomiting, no abdominal pain no headaches. EKG showed A. fib with a rate of [address] changes. This x-ray was reviewed and showed evidence of CHF. Patient received a dose of Lasix in the emergency department. Lab data was reviewed showing white blood cell count of 13.7, hemoglobin 15.5, INR is 1.6, sodium is 132, potassium is 5.0, chloride is 92, CO2 31, B1 of 21 and creatinine is 1.2, plasma lactic acid was 1.9, proBNP was 3950, troponin was less than 0.012, COVID PCR was negative. On 09/02/2020 were patient seen in follow-up on selective care unit, he sitting up in bed awake and alert, oriented 3, appears to be in no acute distress, currently on 4 L of oxygen his pulse ox of 98%, his been afebrile, no complaints of chest pain. Been diuresed, he is in -600 mL fluid balance over the last 24 hours, and his weight down by 0.9 kg in the last 24 hours. Remains on Lasix at 40 mg twice daily, he is on oral anticoagulation the form is about the, his heart rate is controlled, heart rate is 86 BPM. His COVID 19 PCR was negative, there are no labs from today, we will obtain follow-up chest x-ray and labs in the morning On 09/03/2020 patient seen in follow-up care unit, he is calm and comfortable, reading comfortably, he states his breathing has significantly improved since admission, he is in -1 L fluid balance over the last 24 hours, his Lasix has been transitioned to oral Lasix 40 mg twice daily, his chest x-ray today shows increased densities within the lungs, essentially unchanged compared to yesterday, clinically patient is improved. Vital signs have been stable. Today's labs reviewed, showing white blood cell count of 16.8, hemoglobin of 13.9, sodium was 135, potassium is 4.6, chloride is 94, CO2 34, B1 is 32 and creatinine is 1.2, troponin is negative at less than 0.012 Objective - Vital Signs Vital signs: Vital Signs Temp 97.9 F 09/03/20 08:00 Pulse 82 09/03/20 08:00 Resp 16 09/03/20 08:00 BP 101/60 09/03/20 08:00 Pulse Ox 98 09/03/20 08:00 Intake & Output 09/02/20 09/03/20 09/03/20 18:59 06:59 18:59 Intake Total 1090 Output Total 1750 350 Balance -660 -350 Weight 85.5 kg Intake: Oral 1090 Output: Urine 1750 350 Other: Voiding Method Urinal Toilet # Bowel Movements 1 - Exam GENERAL EXAM: Alert, very pleasant, 80-year-old white male, currently on room air, comfortable in no apparent distress. HEAD: Normocephalic/atraumatic. EYES: Normal reaction of pupils, equal size. Conjunctiva pink, sclera white. NOSE: Clear with pink turbinates. THROAT: No erythema or exudates. NECK: No masses, no JVD, no thyroid enlargement, no adenopathy. CHEST: No chest wall deformity. Symmetrical expansion. LUNGS: Equal air entry with basilar crackles CVS: Regular rate and rhythm, normal S1 and S2, no gallops, no murmurs, no rubs ABDOMEN: Soft, nontender. No hepatosplenomegaly, normal bowel sounds, no guarding or rigidity. EXTREMITIES: No clubbing, 1+ lower extremity edema no cyanosis, 2+ pulses and upper and lower extremities. MUSCULOSKELETAL: Muscle strength and tone normal. SPINE: No scoliosis or deformity SKIN: No rashes CENTRAL NERVOUS SYSTEM: Alert and oriented -3. No focal deficits, tone is normal in all 4 extremities. PSYCHIATRIC: Alert and oriented -3. Appropriate affect. Intact judgment and insight. - Labs CBC & Chem 7: 09/02/20 11:16 09/02/20 11:16 Labs: Abnormal Lab Results - Last 24 Hours (Table) 09/02/20 09/02/20 Range/Units 11:16 11:16 WBC 16.8 H (3.8-10.6) k/uL RBC 4.29 L (4.30-5.90) m/uL MCV 100.8 H (80.0-100.0) fL Neutrophils # 14.2 H (1.3-7.7) k/uL Monocytes # 1.2 H (0-1.0) k/uL Sodium 135 L (137-145) mmol/L Chloride 94 L (98-107) mmol/L Carbon Dioxide 34 H (22-30) mmol/L BUN 32 H (9-20) mg/dL Glucose 121 H (74-99) mg/dL Microbiology - Last 24 Hours (Table) 09/01/20 08:00 Blood Culture - Preliminary Blood No Growth after 48 hours 09/01/20 07:43 Blood Culture - Preliminary Blood No Growth after 24 hours Assessment and Plan Plan: Assessment: #1. Acute on chronic hypoxic respiratory failure related to acute exacerbation of systolic CHF. COVID 19 ruled out #2. Recent history of stenting of the left circumflex artery artery on 07/13/2020 #3. Coronary artery disease with previous stenting #4. 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 Aortic valve stenosis status post surgical repair with aortic valve replacement #6. Chronic atrial fibrillation on Xarelto #7. Previous history of myocardial infarction #8. Hypertension #9. Hyperlipidemia #10. Lifelong nonsmoker Plan: Patient is stable, he is on room air, increase activity as tolerated, he is maintaining negative fluid balance, his diuretics have been transitioned to oral Lasix, no acute events overnight, he continues on oral anticoagulation for his chronic atrial fibrillation, his vital signs have been stable overnight, from pulmonary perspective he can be considered for discharge home if cleared by cardiology I performed a history & physical examination of the patient and discussed their management with my nurse practitioner, Wendy Mullen. I reviewed the nurse practitioner's note and agree with the documented findings and plan of care. Lung sounds are positive for bibasilar crackles. The findings and the impression was discussed with the patient. I attest to the documentation by the nurse practitioner. Time with Patient: Less than 30
[2020-09-03 10:43] LABS: Calcium 9.3 mg/dL (8.4-10.2); Potassium 4.3 mmol/L (3.5-5.1)
[2020-09-03 11:32] VITALS: TEMP 98.1
[2020-09-03 12:21] VITALS: BP 125/78; PULSE 87; RESP 17
--- NOTE | 2020-09-03 14:01 | P.PN ---
Subjective Progress Note Date: 09/03/20 CHIEF COMPLAINT: CHF HISTORY OF PRESENT ILLNESS: 09/02/2020 This is a 80-year-old male with a past medical history significant for chronic atrial fibrillation, congestive heart failure, hypertension, hyperlipidemia, aortic valve replacement, and coronary artery disease with previous PCI. Patient follows in the office with Dr. Olsen. We have been asked to see the patient in consultation for congestive heart failure. Patient underwent cardiac catheterization in June 2020 with stent placement to the left circumflex. Patient reports he has been having difficulty with shortness of breath since the stent was placed. He had an echocardiogram completed in April 2020 which revealed ejection fraction 20-25%. Patient was also having nonsustained V. tach. Patient states Dr. Olsen discussed possible AICD with him in the future. Patient had an echocardiogram completed at the office last week with an ejection fraction of 35-40%. Patient states his shortness of breath has worsened in severity over the last few days. He states he has been taking his Lasix as prescribed by Dr. Olsen. He states he is supposed to be taking 40mg BID. He states he does not like taking the lasix because he urinates all the time and he is unable to get anything else done during the day because he is always using the bathroom. 09/03/2020 Patient examined this morning at the bedside. He denies chest pain or pressure. He states his shortness of breath has resolved. He remains on IV Lasix. He is hoping to be discharged home today. PHYSICAL EXAM: VITAL SIGNS: Reviewed. GENERAL: Well-developed in no acute distress. HEENT: Head is normocephalic. Pupils are equal, round. Sclerae anicteric. Mucous membranes of the mouth are moist. Neck supple. No JVD or thyromegaly LUNGS: Respirations even and unlabored. Lungs diminished with fine rales to the bases HEART: Irregular rate and rhythm. S1 and S2 heard. ABDOMEN: Soft. Nondistended. Nontender. EXTREMITIES: Normal range of motion. No clubbing or cyanosis. Peripheral pulses intact. No lower extremity edema NEUROLOGIC: Awake and alert. Oriented x 3. ASSESSMENT: Acute exacerbation of chronic systolic heart failure, EF 35-40% Chronic persistent atrial fibrillation, on anticoagulation with Xarelto Ischemic cardiomyopathy History of nonsustained ventricular tachycardia History of aortic valve replacement Hypertension Hyperlipidemia Coronary artery disease with previous PCI PLAN: Transition patient to oral Lasix Patient is stable for discharge home today from a cardiac perspective. Nurse practitioner note has been reviewed by physician. Signing provider agrees with the documented findings, assessment, and plan of care. Objective - Vital Signs Vital signs: Vital Signs Temp 98.1 F 09/03/20 11:31 Pulse 87 09/03/20 12:00 Resp 17 09/03/20 12:00 BP 125/78 09/03/20 12:00 Pulse Ox 94 L 09/03/20 11:31 Intake & Output 09/02/20 09/03/20 09/03/20 18:59 06:59 18:59 Intake Total 1090 240 Output Total 1750 350 Balance -660 -350 240 Weight 85.5 kg Intake: Oral 1090 240 Output: Urine 1750 350 Other: Voiding Method Urinal Toilet # Voids 1 # Bowel Movements 1 - Labs CBC & Chem 7: 09/02/20 11:16 09/03/20 08:34 Labs: Abnormal Lab Results - Last 24 Hours (Table) 09/03/20 Range/Units 08:34 Sodium 136 L (137-145) mmol/L Chloride 95 L (98-107) mmol/L Carbon Dioxide 33 H (22-30) mmol/L BUN 38 H (9-20) mg/dL Creatinine 1.29 H (0.66-1.25) mg/dL Glucose 169 H (74-99) mg/dL Microbiology - Last 24 Hours (Table) 09/01/20 07:43 Blood Culture - Preliminary Blood No Growth after 48 hours 09/01/20 08:00 Blood Culture - Preliminary Blood No Growth after 48 hours
[2020-09-03] MEDS ORDERED: FUROSEMIDE 40 MG TAB PO SCH (16:00)
--- NOTE | 2020-09-05 22:10 | P.DS ---
Providers Date of admission: 09/01/20 09:00 Attending physician: Sunny Pruitt Consults: 09/01/20 09:14 Consult Physician Routine Consulting Provider: Malachi Alvarez Consult Reason/Comments: CHF Do you want consulting provider notified?: Yes Primary care physician: Sunny Pruitt - Discharge Diagnosis(es) (1) CHF exacerbation Status: Acute (2) Hypoxia Status: Acute (3) Atrial fibrillation with rapid ventricular response Status: Acute Hospital Course: The patient is here essentially for recurrent acute on chronic congestive heart failure secondary to atrial fibrillation and cardiopathy. The patient was stabilized. Myocardial infarction was ruled out and the patient was discharged in stable condition once cleared by cardiology. Patient Condition at Discharge: Stable Plan - Discharge Summary New Discharge Prescriptions: New RX: Amiodarone [Cordarone] 200 mg PO BID tab RX: Furosemide [Lasix] 40 mg PO BID@0900,1600 tab Continue RX: Rivaroxaban [Xarelto] 20 mg PO DAILY RX: Metoprolol Tartrate [Lopressor] 50 mg PO BID RX: Enalapril Maleate [Vasotec] 2.5 mg PO DAILY RX: Aspirin [Adult Low Dose Aspirin EC] 81 mg PO DAILY RX: Albuterol Sulfate [Ventolin HFA] 2 puff INHALATION RT-QID PRN PRN Reason: Shortness Of Breath RX: Cholecalciferol [Vitamin D3 (25 Mcg = 1000 Iu)] 2,000 unit PO DAILY RX: Rosuvastatin Calcium [Crestor] 5 mg PO SUMOWEFR RX: Albuterol Nebulized [Ventolin Nebulized] 2.5 mg INHALATION RT-Q6H PRN PRN Reason: Shortness Of Breath RX: Clopidogrel [Plavix] 75 mg PO DAILY #30 tab Discontinued RX: Amiodarone [Cordarone] 400 mg PO BID #60 tab RX: Furosemide [Lasix] 80 mg PO BID@0900,1600 #60 tab Discharge Medication List RX: Aspirin [Adult Low Dose Aspirin EC] 81 mg PO DAILY 10/18/18 [History] RX: Enalapril Maleate [Vasotec] 2.5 mg PO DAILY 10/18/18 [History] RX: Metoprolol Tartrate [Lopressor] 50 mg PO BID 10/18/18 [History] RX: Rivaroxaban [Xarelto] 20 mg PO DAILY 03/06/19 [History] RX: Albuterol Sulfate [Ventolin HFA] 2 puff INHALATION RT-QID PRN 05/13/20 [History] RX: Albuterol Nebulized [Ventolin Nebulized] 2.5 mg INHALATION RT-Q6H PRN 07/10/20 [History] RX: Cholecalciferol [Vitamin D3 (25 Mcg = 1000 Iu)] 2,000 unit PO DAILY 07/10/20 [History] RX: Rosuvastatin Calcium [Crestor] 5 mg PO SUMOWEFRSA 07/10/20 [History] RX: Clopidogrel [Plavix] 75 mg PO DAILY #30 tab 07/14/20 [Rx] RX: Amiodarone [Cordarone] 200 mg PO BID tab 09/03/20 [Rx] RX: Furosemide [Lasix] 40 mg PO BID@0900,1600 tab 09/03/20 [Rx] Follow up Appointment(s)/Referral(s): Remi Olsen MD [STAFF PHYSICIAN] - 09/09/20 3:30 pm (TUESDAY) Sunny Pruitt MD [Primary Care Provider] - 1 Week Ying Brooke MD [STAFF PHYSICIAN] - 09/26/20 3:00 pm Patient Instructions/Handouts: Heart Failure (ER), Heart Failure (DC) Activity/Diet/Wound Care/Special Instructions: CHF Weigh yourself every morning after you urinate. If you gain 2-3 pounds overnight or 5 pounds in one week, call your primary physician for guidance on your medications. Keep a log of your weights. Avoid salt, or foods with hidden salt. Extra salt makes your heart work harder and traps the fluid in your body for longer. Take all of your medications as directed, especially your water pills. NEVER skip a dose. Elevate your legs when you are not up moving around to help with circulation and prevent swelling. Call your physician if you notice any extra swelling in your legs, ankles, feet or abdomen, if you have a new dry cough, if your shortness of breath worsens with activity or at rest, or if you feel more fatigued Discharge Disposition: HOME SELF-CARE
--- NOTE | 2020-09-06 13:13 | P.DS ---
Providers Date of admission: 09/01/20 09:00 Attending physician: Sunny Pruitt Consults: 09/01/20 09:14 Consult Physician Routine Consulting Provider: Malachi Alvarez Consult Reason/Comments: CHF Do you want consulting provider notified?: Yes Primary care physician: Sunny Pruitt - Discharge Diagnosis(es) (1) CHF exacerbation Status: Acute (2) Hypoxia Status: Acute (3) Atrial fibrillation with rapid ventricular response Status: Acute Hospital Course: This is a discharge from an 80-year-old white male Center with known history of atrial fibrillation. The patient was admitted for recurrent congestive heart failure and stabilized with appropriate treatment from the medical team and cardiology. The patient was stabilized tolerating diet and restarted on his home medication. The patient was ambulating close to his baseline but enough for home ADL. The patient will be discharged in stable condition to follow-up with me in 3-7 days. Patient Condition at Discharge: Stable Plan - Discharge Summary New Discharge Prescriptions: New Amiodarone [Cordarone] 200 mg PO BID tab Furosemide [Lasix] 40 mg PO BID@0900,1600 tab Continue Rivaroxaban [Xarelto] 20 mg PO DAILY Metoprolol Tartrate [Lopressor] 50 mg PO BID Enalapril Maleate [Vasotec] 2.5 mg PO DAILY Aspirin [Adult Low Dose Aspirin EC] 81 mg PO DAILY Albuterol Sulfate [Ventolin HFA] 2 puff INHALATION RT-QID PRN PRN Reason: Shortness Of Breath Cholecalciferol [Vitamin D3 (25 Mcg = 1000 Iu)] 2,000 unit PO DAILY Rosuvastatin Calcium [Crestor] 5 mg PO SUMOWEFRSA Albuterol Nebulized [Ventolin Nebulized] 2.5 mg INHALATION RT-Q6H PRN PRN Reason: Shortness Of Breath Clopidogrel [Plavix] 75 mg PO DAILY #30 tab Discontinued Amiodarone [Cordarone] 400 mg PO BID #60 tab Furosemide [Lasix] 80 mg PO BID@0900,1600 #60 tab Discharge Medication List Aspirin [Adult Low Dose Aspirin EC] 81 mg PO DAILY 10/18/18 [History] Enalapril Maleate [Vasotec] 2.5 mg PO DAILY 10/18/18 [History] Metoprolol Tartrate [Lopressor] 50 mg PO BID 10/18/18 [History] Rivaroxaban [Xarelto] 20 mg PO DAILY 10/18/18 [History] Albuterol Sulfate [Ventolin HFA] 2 puff INHALATION RT-QID PRN 05/13/20 [History] Albuterol Nebulized [Ventolin Nebulized] 2.5 mg INHALATION RT-Q6H PRN 07/10/20 [History] Cholecalciferol [Vitamin D3 (25 Mcg = 1000 Iu)] 2,000 unit PO DAILY 07/10/20 [History] Rosuvastatin Calcium [Crestor] 5 mg PO SUMOWEFRSA 07/10/20 [History] Clopidogrel [Plavix] 75 mg PO DAILY #30 tab 07/14/20 [Rx] Amiodarone [Cordarone] 200 mg PO BID tab 09/03/20 [Rx] Furosemide [Lasix] 40 mg PO BID@0900,1600 tab 09/03/20 [Rx] Follow up Appointment(s)/Referral(s): Remi Olsen MD [STAFF PHYSICIAN] - 09/09/20 3:30 pm (TUESDAY) Sunny Pruitt MD [Primary Care Provider] - 1 Week Ying Brooke MD [STAFF PHYSICIAN] - 09/26/20 3:00 pm Patient Instructions/Handouts: Heart Failure (ER), Heart Failure (DC) Activity/Diet/Wound Care/Special Instructions: CHF Weigh yourself every morning after you urinate. If you gain 2-3 pounds overnight or 5 pounds in one week, call your primary physician for guidance on your medications. Keep a log of your weights. Avoid salt, or foods with hidden salt. Extra salt makes your heart work harder and traps the fluid in your body for longer. Take all of your medications as directed, especially your water pills. NEVER skip a dose. Elevate your legs when you are not up moving around to help with circulation and prevent swelling. Call your physician if you notice any extra swelling in your legs, ankles, feet or abdomen, if you have a new dry cough, if your shortness of breath worsens with activity or at rest, or if you feel more fatigued Discharge Disposition: HOME SELF-CARE
== END 2020-09-03 15:38 | disposition home or self-care (01) | DRG 291 ==
LOC: EC 06:52 → 3SCARD 09:00
PROVIDERS: ADMIT Family Medicine; ATTEND Family Medicine
PROC: 5A09357 Assistance with Respiratory Ventilation, Less than 24 Consecutive Hours, Continuous Positive Airway Pressure (ICD-10-PCS; principal; 2020-09-01)
DX: I11.0 Hypertensive heart disease with heart failure (principal); J96.21 Acute and chronic respiratory failure with hypoxia; I48.20 Chronic atrial fibrillation, unspecified; I50.23 Acute on chronic systolic (congestive) heart failure; I25.10 Atherosclerotic heart disease of native coronary artery without angina pectoris; Z96.659 Presence of unspecified artificial knee joint; E78.5 Hyperlipidemia, unspecified; Z20.822 Contact with and (suspected) exposure to COVID-19; I25.5 Ischemic cardiomyopathy; Z86.79 Personal history of other diseases of the circulatory system; Z90.49 Acquired absence of other specified parts of digestive tract; Z95.1 Presence of aortocoronary bypass graft; Z87.81 Personal history of (healed) traumatic fracture; Z95.5 Presence of coronary angioplasty implant and graft; Z95.2 Presence of prosthetic heart valve; I25.2 Old myocardial infarction; Z82.49 Family history of ischemic heart disease and other diseases of the circulatory system; Z83.79 Family history of other diseases of the digestive system; Z79.01 Long term (current) use of anticoagulants; Z79.82 Long term (current) use of aspirin; Z79.899 Other long term (current) drug therapy
CPT/HCPCS: 36415; 71045; 80048; 80053; 83605; 83880; 84484; 85025; 85610; 85730; 87040; 87635; 93005; 94644; 94660; 96374; 96375; 99285

== ENCOUNTER 2020-09-03 17:18 | Emergency (ER) | payer MEDICARE ==
[2020-09-03 17:27] VITALS: BP 146/77; PULSE 62; RESP 18; TEMP 98.3
--- NOTE | 2020-09-03 17:57 | ED ---
Wound/Laceration HPI - General Chief Complaint: Wound/Laceration Stated Complaint: Arm bleeding Time Seen by Provider: 09/03/20 17:50 Source: patient, family Mode of arrival: wheelchair Limitations: no limitations - History of Present Illness Initial Comments: 80-year-old male presenting to the emergency department with chief complaint of bleeding from an IV site. Patient states he is on Coumadin and was discharged from the hospital after having laboratory work performed. Patient states he had an IV once it was removed he could not get the bleeding to stop. Patient states he had gauze and Coban applied and the bleeding soaked through. Patient states this all started earlier today. Patient states once he got to the emergency department, the bleeding was still persistent. States there is no bleeding at the moment. Denies any lightheadedness, dizziness, weakness. - Related Data Home Medications Medication Instructions Recorded Confirmed Aspirin [Adult Low Dose Aspirin EC] 81 mg PO DAILY 10/18/18 09/01/20 Enalapril Maleate [Vasotec] 2.5 mg PO DAILY 10/18/18 09/01/20 Metoprolol Tartrate [Lopressor] 50 mg PO BID 10/18/18 09/01/20 Rivaroxaban [Xarelto] 20 mg PO DAILY 10/18/18 09/01/20 Albuterol Sulfate [Ventolin HFA] 2 puff INHALATION RT-QID PRN 05/13/20 09/01/20 Albuterol Nebulized [Ventolin 2.5 mg INHALATION RT-Q6H PRN 07/10/20 09/01/20 Nebulized] Cholecalciferol [Vitamin D3 (25 2,000 unit PO DAILY 07/10/20 09/01/20 Mcg = 1000 Iu)] Rosuvastatin Calcium [Crestor] 5 mg PO SUMOWEFRSA 07/10/20 09/01/20 Previous Rx's Medication Instructions Recorded Clopidogrel [Plavix] 75 mg PO DAILY #30 tab 07/14/20 Amiodarone [Cordarone] 200 mg PO BID tab 09/03/20 Furosemide [Lasix] 40 mg PO BID@0900,1600 tab 09/03/20 Allergies Allergy/AdvReac Type Severity Reaction Status Date / Time No Known Allergies Allergy Verified 09/01/20 08:20 Review of Systems ROS Statement: Those systems with pertinent positive or pertinent negative responses have been documented in the HPI. ROS Other: All systems not noted in ROS Statement are negative. Past Medical History Past Medical History: Atrial Fibrillation, Coronary Artery Disease (CAD), Heart Failure, Hyperlipidemia, Hypertension, Myocardial Infarction ([place]) Additional Past Medical History / Comment(s): mi x 3. fx rt hand Last Myocardial Infarction Date:: 2003 History of Any Multi-Drug Resistant Organisms: None Reported Past Surgical History: Cholecystectomy, Coronary Bypass/CABG, Heart Catheterization With Stent, Joint Replacement Additional Past Surgical History / Comment(s): ascending aortic and bicuspid valve replacement at u of , 3 knee replacement, 3 stents total Past Anesthesia/Blood Transfusion Reactions: No Reported Reaction Date of Last Stent Placement:: 2008 Past Psychological History: No Psychological Hx Reported Smoking Status: Never smoker Past Alcohol Use History: Occasional Past Drug Use History: None Reported - Past Family History Mother Family Medical History: Coronary Artery Disease (CAD), Liver Disease Brother(s) Family Medical History: Congestive Heart Failure (CHF) Additional Family Medical History / Comment(s): heart transplant General Exam Limitations: no limitations General appearance: alert, in no apparent distress Head exam: Present: atraumatic, normocephalic, normal inspection Eye exam: Present: normal appearance, PERRL, EOMI Pupils: Present: normal accommodation ENT exam: Present: normal exam, normal oropharynx, mucous membranes moist Neck exam: Present: normal inspection, full ROM. Absent: tenderness Respiratory exam: Present: normal lung sounds bilaterally. Absent: respiratory distress, wheezes, rales Cardiovascular Exam: Present: regular rate, normal rhythm, normal heart sounds Extremities exam: Present: full ROM, normal capillary refill, other (Palpable ulnar and radial pulses). Absent: normal inspection (Small hematoma noted on t he left ventral forearm. No immediate bleeding at this time.), tenderness, pedal edema, joint swelling, calf tenderness Back exam: Present: normal inspection, full ROM Neurological exam: Present: alert, oriented X3, normal gait Psychiatric exam: Present: normal affect, normal mood Skin exam: Present: warm, dry, intact, normal color Course Vital Signs 09/03/20 17:25 Temperature 98.3 F Pulse Rate 62 Respiratory 18 Rate Blood Pressure 146/77 O2 Sat by Pulse 97 Oximetry Medical Decision Making - Medical Decision Making 80-year-old male presenting to emergency department with a chief complaint of bleeding. On physical examination, there was no active bleeding at this time. Does have a hematoma of the left ventral forearm. I did apply a new set of gauze and brand-new Coban. Patient was advised to keep the arm elevated in order to prevent any further bleeding. Return parameters discussed with patient is understanding and agreeable. Case discussed with physician. Disposition Clinical Impression: Hematoma of IV site Disposition: HOME SELF-CARE Condition: Stable Instructions (If sedation given, give patient instructions): Warfarin (By mouth) Additional Instructions: Follow-up with primary care physician. Return to emergency department if symptoms worsen. Is patient prescribed a controlled substance at d/c from ED?: No Referrals: Sunny Pruitt MD [Primary Care Provider] - 1-2 days Time of Disposition: 18:18
== END 2020-09-03 18:22 | disposition home or self-care (01) ==
LOC: EC 17:18
DX: S50.12XA Contusion of left forearm, initial encounter (principal); I11.0 Hypertensive heart disease with heart failure; I25.10 Atherosclerotic heart disease of native coronary artery without angina pectoris; I50.9 Heart failure, unspecified; I48.91 Unspecified atrial fibrillation; E78.5 Hyperlipidemia, unspecified; I25.2 Old myocardial infarction; Z79.82 Long term (current) use of aspirin; Z79.899 Other long term (current) drug therapy; Z79.01 Long term (current) use of anticoagulants; Z96.659 Presence of unspecified artificial knee joint; X58.XXXA Exposure to other specified factors, initial encounter
CPT/HCPCS: 99283

== ENCOUNTER 2020-09-30 08:13 | Inpatient (IN) | payer MEDICARE ==
[2020-09-30] MEDS ORDERED: FUROSEMIDE 10 MG/ML 10 ML VIAL IV STA (08:26)
--- NOTE | 2020-09-30 08:27 | ED ---
General Adult HPI - General Chief complaint: Shortness of Breath Stated complaint: SOB Time Seen by Provider: 09/30/20 08:15 Source: EMS Mode of arrival: EMS - History of Present Illness Initial comments: Dictation was produced using [employer] dictation software. please excuse any grammatical, word or spelling errors. This patient was cared for during a federal and state declared state of emergency secondary to Covid 19 Chief Complaint: 80-year-old male past medical history of heart failure, coronary artery disease hypertension presents with dyspnea History of Present Illness: Is an 80-year-old male he has multiple cardiac comorbidities. Patient has been allegedly feeling more short of breath over the last 1-7 days. Patient is a history of heart failure. He states that his ejection fraction is 40-45%. 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 Patient reports he has been admitted to the hospital for heart failure in the past. He also has been admitted to the intensive care unit. Patient denies any pain complaints. He feels however some shortness of breath and his chest. Denies any diaphoresis. Patient takes 80 mg of Lasix daily. 40 mg twice a day orally. The ROS documented in this emergency department record has been reviewed and confirmed by me. Those systems with pertinent positive or negative responses have been documented in the HPI. All other systems are other negative and/or noncontributory. PHYSICAL EXAM: General Impression: Alert and oriented x3, dyspneic HEENT: Normocephalic atraumatic, extra-ocular movements intact, pupils equal and reactive to light bilaterally, mucous membranes moist. Cardiovascular: Heart regular rate and rhythm Chest: 3 word sentences, diffuse auscultatory crackles Abdomen: abdomen soft, non-tender, non-distended, no organomegaly Musculoskeletal: Pulses present and equal in all extremities, no peripheral edema Motor: no focal deficits noted Neurological: CN II-XII grossly intact, no focal motor or sensory deficits noted Skin: Intact with no visualized rashes Psych: Anxious ED course: 80-year-old male presents emergency department for severe dyspnea. Vital signs upon arrival shows heart rate of 108, 87% on 6 L nasal cannula, respiratory rate of 28. She reevaluated after approximately 45 minutes of BiPAP with significant improvement condition. No longer dyspneic and tolerating BiPAP well. Laboratory evaluation obtained. Mild leukocytosis of 12.1 unremarkable, coag panel shows INR 1.6, arterial blood gases shows pO2 143/65% FiO2. Patient's oxygen was weaned down. Metabolic panel shows sodium 129 acidosis, lactic acidosis 2.7, brain natruretic peptide of 4130. Chest x-ray shows heart failure. Facial be admitted for heart failure exacerbation. Patient be admitted with consultation to cardiology. EKG interpretation: Ventricular rate 102, A. fib with RVR, QRS 1:30, QTc 500. No ID prolongation, no QTC prolongation, no ST or T-wave changes noted. EKG compared to 09/01/2020 showing no changes. Overall, this EKG is unremarkable - Related Data Home Medications Medication Instructions Recorded Confirmed Aspirin [Adult Low Dose Aspirin EC] 81 mg PO DAILY 10/18/18 09/01/20 Enalapril Maleate [Vasotec] 2.5 mg PO DAILY 10/18/18 09/01/20 Metoprolol Tartrate [Lopressor] 50 mg PO BID 10/18/18 09/01/20 Rivaroxaban [Xarelto] 20 mg PO DAILY 10/18/18 09/01/20 Albuterol Sulfate [Ventolin HFA] 2 puff INHALATION RT-QID PRN 05/13/20 09/01/20 Albuterol Nebulized [Ventolin 2.5 mg INHALATION RT-Q6H PRN 07/10/20 09/01/20 Nebulized] Cholecalciferol [Vitamin D3 (25 2,000 unit PO DAILY 07/10/20 09/01/20 Mcg = 1000 Iu)] Rosuvastatin Calcium [Crestor] 5 mg PO SUMOWEFRSA 07/10/20 09/01/20 Previous Rx's Medication Instructions Recorded Clopidogrel [Plavix] 75 mg PO DAILY #30 tab 07/14/20 Amiodarone [Cordarone] 200 mg PO BID tab 09/03/20 Furosemide [Lasix] 40 mg PO BID@0900,1600 tab 09/03/20 Allergies Allergy/AdvReac Type Severity Reaction Status Date / Time No Known Allergies Allergy Verified 09/01/20 08:20 Review of Systems ROS Statement: Those systems with pertinent positive or pertinent negative responses have been documented in the HPI. ROS Other: All systems not noted in ROS Statement are negative. Past Medical History Past Medical History: Atrial Fibrillation, Coronary Artery Disease (CAD), Heart Failure, Hyperlipidemia, Hypertension, Myocardial Infarction ([place]) Additional Past Medical History / Comment(s): mi x 3. fx rt hand Last Myocardial Infarction Date:: 2003 History of Any Multi-Drug Resistant Organisms: None Reported Past Surgical History: Cholecystectomy, Coronary Bypass/CABG, Heart Catheterization With Stent, Joint Replacement Additional Past Surgical History / Comment(s): ascending aortic and bicuspid valve [facility], 3 knee replacement, 3 stents total Past Anesthesia/Blood Transfusion Reactions: No Reported Reaction Date of Last Stent Placement:: 2008 Past Psychological History: No Psychological Hx Reported Smoking Status: Never smoker Past Alcohol Use History: Occasional Past Drug Use History: None Reported - Past Family History Mother Family Medical History: Coronary Artery Disease (CAD), Liver Disease Brother(s) Family Medical History: Congestive Heart Failure (CHF) Additional Family Medical History / Comment(s): heart transplant Course Vital Signs 09/30/20 09/30/20 08:15 08:23 Temperature 97.6 F Pulse Rate 108 H Respiratory 22 28 H Rate Blood Pressure 141/105 O2 Sat by Pulse 87 L Oximetry Medical Decision Making - Lab Data Result diagrams: 09/30/20 08:29 09/30/20 08:29 Lab Results 09/30/20 09/30/20 09/30/20 Range/Units 08:29 08:29 08:29 WBC 12.1 H (3.8-10.6) k/uL RBC 4.15 L (4.30-5.90) m/uL Hgb 13.0 (13.0-17.5) gm/dL Hct 41.1 (39.0-53.0) % MCV 99.2 (80.0-100.0) fL MCH 31.4 (25.0-35.0) pg MCHC 31.6 (31.0-37.0) g/dL RDW 14.0 (11.5-15.5) % Plt Count 260 (150-450) k/uL MPV 7.2 Neutrophils % 78 % Lymphocytes % 12 % Monocytes % 7 % Eosinophils % 1 % Basophils % 0 % Neutrophils # 9.4 H (1.3-7.7) k/uL Lymphocytes # 1.4 (1.0-4.8) k/uL Monocytes # 0.9 (0-1.0) k/uL Eosinophils # 0.2 (0-0.7) k/uL Basophils # 0.0 (0-0.2) k/uL Hypochromasia Slight PT (9.0-12.0) sec INR (<1.2) APTT (22.0-30.0) sec Sample Site ABG pH (7.35-7.45) ABG pCO2 (35-45) mmHg ABG pO2 (83-108) mmHg ABG HCO3 (21-25) mmol/L ABG Total CO2 (19-24) mmol/L ABG O2 Saturation (94-97) % ABG Base Excess mmol/L Jim Test FiO2 % Sodium 129 L (137-145) mmol/L Potassium 4.9 (3.5-5.1) mmol/L Chloride 91 L (98-107) mmol/L Carbon Dioxide 30 (22-30) mmol/L Anion Gap 8 mmol/L BUN 26 H (9-20) mg/dL Creatinine 1.14 (0.66-1.25) mg/dL Est GFR (CKD-EPI)AfAm 70 (>60 ml/min/1.73 sqM) Est GFR (CKD-EPI)NonAf 61 (>60 ml/min/1.73 sqM) Glucose 196 H (74-99) mg/dL Plasma Lactic Acid Davion 2.7 H* (0.7-2.0) mmol/L Calcium 8.9 (8.4-10.2) mg/dL Magnesium 2.0 (1.6-2.3) mg/dL Total Bilirubin 2.6 H (0.2-1.3) mg/dL AST 71 H (17-59) U/L ALT 46 (4-49) U/L Alkaline Phosphatase 46 (38-126) U/L Troponin I (0.000-0.034) ng/mL NT-Pro-B Natriuret Pep pg/mL Total Protein 7.2 (6.3-8.2) g/dL Albumin 4.1 (3.5-5.0) g/dL Coronavirus (PCR) (Not Detectd) 09/30/20 09/30/20 09/30/20 Range/Units 08:29 08:29 08:29 WBC (3.8-10.6) k/uL RBC (4.30-5.90) m/uL Hgb (13.0-17.5) gm/dL Hct (39.0-53.0) % MCV (80.0-100.0) fL MCH (25.0-35.0) pg MCHC (31.0-37.0) g/dL RDW (11.5-15.5) % Plt Count (150-450) k/uL MPV Neutrophils % % Lymphocytes % % Monocytes % % Eosinophils % % Basophils % % Neutrophils # (1.3-7.7) k/uL Lymphocytes # (1.0-4.8) k/uL Monocytes # (0-1.0) k/uL Eosinophils # (0-0.7) k/uL Basophils # (0-0.2) k/uL Hypochromasia PT 16.4 H (9.0-12.0) sec INR 1.6 H (<1.2) APTT 29.2 (22.0-30.0) sec Sample Site ABG pH (7.35-7.45) ABG pCO2 (35-45) mmHg ABG pO2 (83-108) mmHg ABG HCO3 (21-25) mmol/L ABG Total CO2 (19-24) mmol/L ABG O2 Saturation (94-97) % ABG Base Excess mmol/L Jim Test FiO2 % Sodium (137-145) mmol/L Potassium (3.5-5.1) mmol/L Chloride (98-107) mmol/L Carbon Dioxide (22-30) mmol/L Anion Gap mmol/L BUN (9-20) mg/dL Creatinine (0.66-1.25) mg/dL Est GFR (CKD-EPI)AfAm (>60 ml/min/1.73 sqM) Est GFR (CKD-EPI)NonAf (>60 ml/min/1.73 sqM) Glucose (74-99) mg/dL Plasma Lactic Acid Davion (0.7-2.0) mmol/L Calcium (8.4-10.2) mg/dL Magnesium (1.6-2.3) mg/dL Total Bilirubin (0.2-1.3) mg/dL AST (17-59) U/L ALT (4-49) U/L Alkaline Phosphatase (38-126) U/L Troponin I <0.012 (0.000-0.034) ng/mL NT-Pro-B Natriuret Pep 4130 pg/mL Total Protein (6.3-8.2) g/dL Albumin (3.5-5.0) g/dL Coronavirus (PCR) (Not Detectd) 09/30/20 09/30/20 Range/Units 08:41 09:03 WBC (3.8-10.6) k/uL RBC (4.30-5.90) m/uL Hgb (13.0-17.5) gm/dL Hct (39.0-53.0) % MCV (80.0-100.0) fL MCH (25.0-35.0) pg MCHC (31.0-37.0) g/dL RDW (11.5-15.5) % Plt Count (150-450) k/uL MPV Neutrophils % % Lymphocytes % % Monocytes % % Eosinophils % % Basophils % % Neutrophils # (1.3-7.7) k/uL Lymphocytes # (1.0-4.8) k/uL Monocytes # (0-1.0) k/uL Eosinophils # (0-0.7) k/uL Basophils # (0-0.2) k/uL Hypochromasia PT (9.0-12.0) sec INR (<1.2) APTT (22.0-30.0) sec Sample Site r radial ABG pH 7.34 L (7.35-7.45) ABG pCO2 53 H (35-45) mmHg ABG pO2 143 H (83-108) mmHg ABG HCO3 28 H (21-25) mmol/L ABG Total CO2 30 H (19-24) mmol/L ABG O2 Saturation 99.5 H (94-97) % ABG Base Excess 2.6 mmol/L Jim Test Yes FiO2 65 % Sodium (137-145) mmol/L Potassium (3.5-5.1) mmol/L Chloride (98-107) mmol/L Carbon Dioxide (22-30) mmol/L Anion Gap mmol/L BUN (9-20) mg/dL Creatinine (0.66-1.25) mg/dL Est GFR (CKD-EPI)AfAm (>60 ml/min/1.73 sqM) Est GFR (CKD-EPI)NonAf (>60 ml/min/1.73 sqM) Glucose (74-99) mg/dL Plasma Lactic Acid Davion (0.7-2.0) mmol/L Calcium (8.4-10.2) mg/dL Magnesium (1.6-2.3) mg/dL Total Bilirubin (0.2-1.3) mg/dL AST (17-59) U/L ALT (4-49) U/L Alkaline Phosphatase (38-126) U/L Troponin I (0.000-0.034) ng/mL NT-Pro-B Natriuret Pep pg/mL Total Protein (6.3-8.2) g/dL Albumin (3.5-5.0) g/dL Coronavirus (PCR) Not Detected (Not Detectd) Disposition Clinical Impression: Heart failure Disposition: ADMITTED IP TO THIS HOSP Condition: Fair Referrals: Sunny Pruitt MD [Primary Care Provider] - 1-2 days Decision Time: 09:23
[2020-09-30 08:40] LABS: Basophils % (A) 0 %; Eosinophils # (A) 0.2 k/uL (0-0.7); Eosinophils % (A) 1 %; HCT 41.1 % (39.0-53.0); Hypochromasia Slight; Lymphocytes # (A) 1.4 k/uL (1.0-4.8); Lymphocytes % (A) 12 %; MCH 31.4 pg (25.0-35.0); MCHC 31.6 g/dL (31.0-37.0); MCV 99.2 fL (80.0-100.0); Mean Platelet Volume 7.2; Monocytes # (A) 0.9 k/uL (0-1.0); Monocytes % (A) 7 %; Neutrophils # (A) 9.4 k/uL (1.3-7.7); Neutrophils % (A) 78 %; Platelet Count 260 k/uL (150-450); RBC 4.15 m/uL (4.30-5.90); WBC 12.1 k/uL (3.8-10.6)
[2020-09-30 08:47] LABS: Albumin 4.1 g/dL (3.5-5.0); Calcium 8.9 mg/dL (8.4-10.2); Potassium 4.9 mmol/L (3.5-5.1); Total Bilirubin 2.6 mg/dL (0.2-1.3); Total Protein 7.2 g/dL (6.3-8.2)
[2020-09-30 08:49] LABS: INR 1.6 (<1.2); Prothrombin Time 16.4 sec (9.0-12.0)
[2020-09-30 08:50] LABS: Partial Thromboplastin Time 29.2 sec (22.0-30.0)
[2020-09-30 09:06] LABS: ABG Base Excess 2.6 mmol/L; ABG HCO3 28 mmol/L (21-25); ABG Oxygen Saturation 99.5 % (94-97); ABG PCO2 53 mmHg (35-45); ABG PH 7.34 (7.35-7.45); ABG PO2 143 mmHg (83-108); ABG TCO2 30 mmol/L (19-24); Allen Test Performed? Yes
--- NOTE | 2020-09-30 09:06 | XR ---
EXAMINATION TYPE: XR chest 1V portable DATE OF EXAM: 09/30/2020 Comparison: 09/03/2020 Clinical History: 80-year-old male shortness of breath. Findings: Median sternotomy wires are present. Very low lung volumes. Heart appears enlarged. Diffuse interstit ial density and mild patchy basilar opacities. Possible trace effusions. IMPRESSION: Limited assessment due to marked hypoventilatory changes. Possible background of mild CHF and either patchy infiltrates or mild patchy pulmonary edema at the lung bases with trace effusions.
[2020-09-30] MEDS: FUROSEMIDE 10 MG/ML 4 ML VIAL IV SCH ×2 (09:34→20:03)
--- NOTE | 2020-09-30 15:20 | P.CRDCN ---
History of Present Illness Consult date: 09/30/20 History of present illness: CHIEF COMPLAINT: Congestive heart failure HISTORY OF PRESENT ILLNESS: This is a 80-year-old male with a past medical history significant for chronic atrial fibrillation, congestive heart failure, hypertension, hyperlipidemia, aortic valve replacement, and coronary artery disease with previous PCI. Patient follows in the office with Dr. Olsen. We have been asked to see the patient in consultation for congestive heart failure. Patient underwent cardiac catheterization in June 2020 with stent placement to the left circumflex. Patient reports having shortness of breath since having that stent placed. He has been hospitalized a few times due to CHF since then. Patient was recently hospitalized in August 2020 for CHF. Patient was prescribed Lasix 40 mg twice a day at that time. Patient admitted during that hospitalization that he had not been taking his second dose of Lasix because he was up urinating late at night. Patient was encouraged to take his second dose of Lasix early in the afternoon instead of bedtime. Patient was agreeable and was discharged home on the same dose of Lasix. Patient reports he has been feeling short of breath over the last 2-3 days. He also reports feeling like he has some sinus drainage. Reports a nonproductive cough. Denies fever or chil ls. Denies chest pain or pressure. Patient states he uses home oxygen at 3 L. At the time of examination he is on 7 L nasal cannula. Patient was initially placed on BiPAP when he first came to the emergency room. Patient had an echocardiogram completed in August 2020 at the office revealing ejection fraction of 35-40% DIAGNOSTICS: EKG reveals A. fib with RVR Chest xray mild congestive heart failure. Patchy infiltrates or mild patchy pulmonary edema at the lung bases with trace effusions. Laboratory data: WBC 12.1. Hemoglobin 13.0. Platelet count 260. Sodium 129. Potassium 4.9. BUN 26. Creatinine 1.14. Lactic acid 1.8. Troponin negative 1. BNP 4130. Current home cardiac medications include Crestor 5 mg Tuesday, Xarelto 20 mg daily, metoprolol 50 g twice a day, Lasix 40 mg twice a day, enalapril 2.5 mg daily, Plavix 75 mg daily, aspirin 81 mg daily, amiodarone 200 mg twice a day REVIEW OF SYSTEMS: At the time of my exam: CONSTITUTIONAL: Denies fever or chills. HEENT: Denies blurred vision, vision changes, or eye pain. Denies hemoptysis CARDIOVASCULAR: Denies chest pain, orthopnea, PND or palpitations RESPIRATORY: No shortness of breath. GASTROINTESTINAL: Denies abdominal pain. Denies nausea or vomiting. HEMATOLOGIC: Denies bleeding disorders. GENITOURINARY: Denies any blood in urine. SKIN: Denies pruitis. Denies rash. PHYSICAL EXAM: VITAL SIGNS: Reviewed. GENERAL: Well-developed in no acute distress, however appears dyspneic with conversation. HEENT: Head is normocephalic. Pupils are equal, round. Sclerae anicteric. Mucous membranes of the mouth are moist. Neck supple. No JVD or thyromegaly LUNGS: Respirations even and unlabored. Lungs diminished with bibasilar rales. HEART: Irregular rate and rhythm. S1 and S2 heard. ABDOMEN: Soft. Nondistended. Nontender. EXTREMITIES: Normal range of motion. No clubbing or cyanosis. Peripheral pulses intact. Trace bilateral lower extremity edema NEUROLOGIC: Awake and alert. Oriented x 3. ASSESSMENT: Acute exacerbation of chronic systolic heart failure, EF 35-40% Acute on chronic hypoxic respiratory failure, home O2 use at 3 L Chronic persistent atrial fibrillation with RVR, anticoagulated with Xarelto Ischemic cardiomyopathy Coronary artery disease with previous PCI, most recent stenting to circumflex in June 2020 History of nonsustained ventricular tachycardia History of aortic valve replacement Hypertension Hyperlipidemia Previous noncompliance with medications PLAN: No need to repeat echocardiogram as this was performed last month at cardiology office Resume Xarelto and Plavix. Do not resume aspirin at this time Resume additional cardiac medications Continue IV Lasix May consider use of Aldactone along with Lasix May also consider use of Entresto Monitor kidney function Daily weights Accurate I&O Further recommendations pending patient's course Nurse practitioner note has been reviewed by physician. Signing provider agrees with the documented findings, assessment, and plan of care. Past Medical History Past Medical History: Atrial Fibrillation, Coronary Artery Disease (CAD), Heart Failure, Hyperlipidemia, Hypertension, Myocardial Infarction (CT), Pneumonia, Respiratory Disorder Additional Past Medical History / Comment(s): Pt recently admitted to [facility] on 09/01/20 with exacerbation CHF/hypoxia/Afib with RVR. Other hx: Home oxygen at 3-4L/NC, bronchitis, RLS. Last Myocardial Infarction Date:: 2003 History of Any Multi-Drug Resistant Organisms: None Reported Past Surgical History: Appendectomy, Coronary Bypass/CABG, Heart Catheterization With Stent, Joint Replacement Additional Past Surgical History / Comment(s): ROMI, ascending [facility] and [facility]icus[facility] PCI with stents, bilateral knee replacements, bilateral cataract removal. Past Anesthesia/Blood Transfusion Reactions: No Reported Reaction Date of Last Stent Placement:: 2019 Smoking Status: Never smoker - Past Family History Mother Family Medical History: Coronary Artery Disease (CAD), Liver Disease Brother(s) Family Medical History: Congestive Heart Failure (CHF) Additional Family Medical History / Comment(s): heart transplant Father Family Medical History: Congestive Heart Failure (CHF) Medications and Allergies Home Medications Medication Instructions Recorded Confirmed Type Aspirin [Adult Low Dose Aspirin EC] 81 mg PO DAILY 10/18/18 09/30/20 History Enalapril Maleate [Vasotec] 2.5 mg PO DAILY 10/18/18 09/30/20 History Metoprolol Tartrate [Lopressor] 50 mg PO BID 10/18/18 09/30/20 History Rivaroxaban [Xarelto] 20 mg PO DAILY 10/18/18 09/30/20 History Albuterol Sulfate [Ventolin HFA] 2 puff INHALATION RT-QID PRN 05/13/20 09/30/20 History Albuterol Nebulized [Ventolin 2.5 mg INHALATION RT-QID PRN 07/10/20 09/30/20 History Nebulized] Cholecalciferol [Vitamin D3 (25 50 mcg PO DAILY 07/10/20 09/30/20 History Mcg = 1000 Iu)] Rosuvastatin Calcium [Crestor] 5 mg PO SUMOWEFRSA 07/10/20 09/30/20 History Clopidogrel [Plavix] 75 mg PO DAILY #30 tab 07/14/20 09/30/20 Rx Amiodarone [Cordarone] 200 mg PO BID tab 09/03/20 09/30/20 Rx Furosemide [Lasix] 40 mg PO BID@0900,1600 tab 09/03/20 09/30/20 Rx Allergies Allergy/AdvReac Type Severity Reaction Status Date / Time No Known Allergies Allergy Verified 09/30/20 10:09 Physical Exam Vitals: Vital Signs Temp Pulse Resp BP Pulse Ox 09/30/20 14:15 95 09/30/20 13:20 97 09/30/20 11:54 80 22 124/74 96 09/30/20 09:36 97.6 F 89 26 H 152/106 96 09/30/20 08:23 28 H 09/30/20 08:15 97.6 F 108 H 22 141/105 87 L Intake and Output 09/30/20 09/30/20 09/30/20 06:59 14:59 22:59 Other: Weight 83.915 kg Results 09/30/20 08:29 09/30/20 08:29 Cardiac Enzymes 09/30/20 09/30/20 Range/Units 08:29 08:29 AST 71 H (17-59) U/L Troponin I <0.012 (0.000-0.034) ng/mL Coagulation 09/30/20 Range/Units 08:29 PT 16.4 H (9.0-12.0) sec APTT 29.2 (22.0-30.0) sec CBC 09/30/20 Range/Units 08:29 WBC 12.1 H (3.8-10.6) k/uL RBC 4.15 L (4.30-5.90) m/uL Hgb 13.0 (13.0-17.5) gm/dL Hct 41.1 (39.0-53.0) % Plt Count 260 (150-450) k/uL Comprehensive Metabolic Panel 09/30/20 Range/Units 08:29 Sodium 129 L (137-145) mmol/L Potassium 4.9 (3.5-5.1) mmol/L Chloride 91 L (98-107) mmol/L Carbon Dioxide 30 (22-30) mmol/L BUN 26 H (9-20) mg/dL Creatinine 1.14 (0.66-1.25) mg/dL Glucose 196 H (74-99) mg/dL Calcium 8.9 (8.4-10.2) mg/dL AST 71 H (17-59) U/L ALT 46 (4-49) U/L Alkaline Phosphatase 46 (38-126) U/L Total Protein 7.2 (6.3-8.2) g/dL Albumin 4.1 (3.5-5.0) g/dL Current Medications Generic Name Dose Route Start Last Admin Trade Name Freq PRN Reason Stop Dose Admin Furosemide 40 mg 09/30/20 09:30 09/30/20 09:34 Furosemide 10 Mg/Ml 4 Ml Vial IV 40 mg Q12H JOSEY Administration Intake and Output 09/30/20 09/30/20 09/30/20 06:59 14:59 22:59 Other: Weight 83.915 kg Patient Weight 10/01/20 06:59 Weight 83.915 kg 09/30/20 08:29 09/30/20 08:29
[2020-09-30] MEDS: AMIODARONE 200 MG TAB PO SCH (20:03)
[2020-09-30] MEDS: METOPROLOL TARTRATE 50 MG TAB PO SCH (20:03)
[2020-10-01 08:19] LABS: Calcium 9.1 mg/dL (8.4-10.2)
[2020-10-01 08:22] LABS: Potassium 4.6 mmol/L (3.5-5.1)
[2020-10-01] MEDS ORDERED: RIVAROXABAN 20 MG TAB PO SCH (09:00)
[2020-10-01] MEDS ORDERED: ATORVASTATIN 10 MG TAB PO SCH (09:00)
--- NOTE | 2020-10-01 09:35 | P.PN ---
Subjective Progress Note Date: 10/01/20 Principal diagnosis: Acute exacerbation of heart failure with reduced ejection fraction This is a very pleasant 8-year-old male patient with a past medical history significant for permanent atrial fibrillation, cardiomyopathy was EF between 35- 40%, coronary artery disease and prior revascularization as well as multiple comorbid conditions was admitted to the hospital with acute exacerbation of heart failure related to systolic dysfunction. The patient was seen this morning. He is feeling overall better. The shortness of breath has improved. No lower except his edema. No symptoms of chest pain or chest discomfort. He is on Lasix IV. He is also on antiplatelet and a nticoagulation. The patient states clearly that he was not compliant with his by mouth Lasix at night because he goes to the bathroom quite often after he takes the medication. Objective - Vital Signs Vital signs: Vital Signs Temp 97.7 F 10/01/20 04:58 Pulse 78 10/01/20 04:58 Resp 18 10/01/20 06:33 BP 124/67 10/01/20 04:58 Pulse Ox 97 10/01/20 06:33 Intake & Output 09/30/20 10/01/20 10/01/20 18:59 06:59 18:59 Intake Total 0 Balance 0 Weight 83.915 kg 83.7 kg Intake: Oral 0 Other: Voiding Method Urinal - Constitutional General appearance: Present: no acute distress - Respiratory Respiratory: bilateral: diminished - Cardiovascular Rhythm: irregularly irregular Heart sounds: normal: S1, S2 - Labs CBC & Chem 7: 09/30/20 08:29 10/01/20 07:25 Labs: Abnormal Lab Results - Last 24 Hours (Table) 09/30/20 10/01/20 Range/Units 10:54 07:25 Sodium 133 L (137-145) mmol/L Chloride 92 L (98-107) mmol/L BUN 34 H (9-20) mg/dL Glucose 136 H (74-99) mg/dL Plasma Lactic Acid Davion 2.1 H* (0.7-2.0) mmol/L Assessment and Plan Assessment: Assessment #1 acute exacerbation of heart failure with reduced ejection fraction #2 cardiomyopathy was EF between 35-40% #3 permanent atrial fibrillation #4 coronary artery disease #5 multiple comorbid conditions Plan #1 continue anticoagulation and antiplatelet #2 continue IV Lasix for additional 24 hours #3 follow-up with the patient #4 continue monitor the kidney function and electrolytes
[2020-10-01] MEDS: CLOPIDOGREL 75 MG TAB PO SCH (09:54)
[2020-10-01] MEDS: AMIODARONE 200 MG TAB PO SCH ×2 (09:54→21:08)
[2020-10-01] MEDS: lisinopriL 5 MG TAB PO SCH (09:54)
[2020-10-01] MEDS: METOPROLOL TARTRATE 50 MG TAB PO SCH ×2 (09:54→21:08)
[2020-10-01] MEDS: FUROSEMIDE 10 MG/ML 4 ML VIAL IV SCH ×2 (09:55→21:08)
[2020-10-01 15:10] VITALS: BMI 31.6
--- NOTE | 2020-10-02 07:48 | P.DS ---
Providers Date of admission: 09/30/20 09:21 Attending physician: Sunny Pruitt Consults: 09/30/20 09:17 Consult Physician Routine Consulting Provider: Eron Roman Consult Reason/Comments: heart failure Do you want consulting provider notified?: Yes Primary care physician: Sunny Pruitt Hospital Course: Admitted for CHF and stabilized. patient now tolerating diet and ambulating/voiding without difficulty. Will Dc when cleared by cardiology Patient Condition at Discharge: Fair Plan - Discharge Summary Discharge Rx Participant: No New Discharge Prescriptions: Continue Rivaroxaban [Xarelto] 20 mg PO DAILY Metoprolol Tartrate [Lopressor] 50 mg PO BID Enalapril Maleate [Vasotec] 2.5 mg PO DAILY Aspirin [Adult Low Dose Aspirin EC] 81 mg PO DAILY Albuterol Sulfate [Ventolin HFA] 2 puff INHALATION RT-QID PRN PRN Reason: Shortness Of Breath Cholecalciferol [Vitamin D3 (25 Mcg = 1000 Iu)] 50 mcg PO DAILY Rosuvastatin Calcium [Crestor] 5 mg PO SUMOWE Albuterol Nebulized [Ventolin Nebulized] 2.5 mg INHALATION RT-QID PRN PRN Reason: Shortness Of Breath Clopidogrel [Plavix] 75 mg PO DAILY #30 tab Amiodarone [Cordarone] 200 mg PO BID tab Furosemide [Lasix] 40 mg PO BID@0900,1600 tab Discharge Medication List Aspirin [Adult Low Dose Aspirin EC] 81 mg PO DAILY 10/18/18 [History] Enalapril Maleate [Vasotec] 2.5 mg PO DAILY 10/18/18 [History] Metoprolol Tartrate [Lopressor] 50 mg PO BID 10/18/18 [History] Rivaroxaban [Xarelto] 20 mg PO DAILY 10/18/18 [History] Albuterol Sulfate [Ventolin HFA] 2 puff INHALATION RT-QID PRN 05/13/20 [History] Albuterol Nebulized [Ventolin Nebulized] 2.5 mg INHALATION RT-QID PRN 07/10/20 [History] Cholecalciferol [Vitamin D3 (25 Mcg = 1000 Iu)] 50 mcg PO DAILY 07/10/20 [History] Rosuvastatin Calcium [Crestor] 5 mg PO SUMOWEFRSA 07/10/20 [History] Clopidogrel [Plavix] 75 mg PO DAILY #30 tab 07/14/20 [Rx] Amiodarone [Cordarone] 200 mg PO BID tab 09/03/20 [Rx] Furosemide [Lasix] 40 mg PO BID@0900,1600 tab 09/03/20 [Rx] Follow up Appointment(s)/Referral(s): Sunny Pruitt MD [Primary Care Provider] - 1-2 days Discharge Disposition: HOME SELF-CARE
[2020-10-02 08:25] LABS: Calcium 9.2 mg/dL (8.4-10.2); Potassium 4.2 mmol/L (3.5-5.1)
[2020-10-02] MEDS ORDERED: RIVAROXABAN 15 MG TAB PO SCH (09:00)
[2020-10-02] MEDS: FUROSEMIDE 10 MG/ML 4 ML VIAL IV SCH (09:01)
[2020-10-02] MEDS: lisinopriL 5 MG TAB PO SCH (09:02)
[2020-10-02] MEDS: METOPROLOL TARTRATE 50 MG TAB PO SCH (09:02)
[2020-10-02] MEDS: AMIODARONE 200 MG TAB PO SCH (09:02)
[2020-10-02] MEDS: CLOPIDOGREL 75 MG TAB PO SCH (09:02)
[2020-10-02] MEDS ORDERED: SPIRONOLACTONE 25 MG TAB PO SCH (10:15)
--- NOTE | 2020-10-02 12:47 | P.PN ---
Subjective Progress Note Date: 10/02/20 CHIEF COMPLAINT: Congestive heart failure HISTORY OF PRESENT ILLNESS: 09/30/2020 This is a 80-year-old male with a past medical history significant for chronic a trial fibrillation, congestive heart failure, hypertension, hyperlipidemia, aortic valve replacement, and coronary artery disease with previous PCI. Patient follows in the office with Dr. Olsen. We have been asked to see the patient in consultation for congestive heart failure. Patient underwent cardiac catheterization in June 2020 with stent placement to the left circumflex. Patient reports having shortness of breath since having that stent placed. He has been hospitalized a few times due to CHF since then. Patient was recently hospitalized in August 2020 for CHF. Patient was prescribed Lasix 40 mg twice a day at that time. Patient admitted during that hospitalization that he had not been taking his second dose of Lasix because he was up urinating late at night. Patient was encouraged to take his second dose of Lasix early in the afternoon instead of bedtime. Patient was agreeable and was discharged home on the same dose of Lasix. Patient reports he has been feeling short of breath over the last 2-3 days. He also reports feeling like he has some sinus drainage. Reports a nonproductive cough. Denies fever or chills. Denies chest pain or pressure. Patient states he uses home oxygen at 3 L. At the time of examination he is on 7 L nasal cannula. Patient was initially placed on BiPAP when he first came to the emergency room. Patient had an echocardiogram completed in August 2020 at the office revealing ejection fraction of 35-40% 10/02/2020 patient examined this morning at the bedside. He denies chest pain or pressure. He denies shortness of breath. He remains on IV Lasix. Potassium 4.2 today. He is hoping to be discharged home today. PHYSICAL EXAM: VITAL SIGNS: Reviewed. GENERAL: Well-developed in no acute distress, however appears dyspneic with conversation. HEENT: Head is normocephalic. Pupils are equal, round. Sclerae anicteric. Mucous membranes of the mouth are moist. Neck supple. No JVD or thyromegaly LUNGS: Respirations even and unlabored. Lungs diminished with bibasilar rales. HEART: Irregular rate and rhythm. S1 and S2 heard. ABDOMEN: Soft. Nondistended. Nontender. EXTREMITIES: Normal range of motion. No clubbing or cyanosis. Peripheral pulses intact. Trace bilateral lower extremity edema NEUROLOGIC: Awake and alert. Oriented x 3. ASSESSMENT: Acute exacerbation of chronic systolic heart failure, EF 35-40% Acute on chronic hypoxic respiratory failure, home O2 use at 3 L Chronic persistent atrial fibrillation with RVR, anticoagulated with Xarelto Ischemic cardiomyopathy Coronary artery disease with previous PCI, most recent stenting to circumflex in June 2020 History of nonsustained ventricular tachycardia History of aortic valve replacement Hypertension Hyperlipidemia Previous noncompliance with medications PLAN: Continue Xarelto and Plavix. Do not resume aspirin at this time Transition to oral lasix Add Aldactone 25 mg daily Agreeable to discharge home today. Patient to follow up outpatient with Dr. Olsen Nurse practitioner note has been reviewed by physician. Signing provider agrees with the documented findings, assessment, and plan of care. Objective - Vital Signs Vital signs: Vital Signs Temp 97.8 F 10/02/20 08:00 Pulse 73 10/02/20 08:00 Resp 19 10/02/20 08:00 BP 101/62 10/02/20 08:00 Pulse Ox 93 L 10/02/20 08:00 Intake & Output 10/01/20 10/02/20 10/02/20 18:59 06:59 18:59 Intake Total 370 Output Total 400 500 Balance -30 -500 Weight 83.7 kg 83.2 kg Intake: IV 10 Flush 10 Oral 360 Output: Urine 400 500 Other: Voiding Method Urinal Urinal Urinal # Voids 1 - Labs CBC & Chem 7: 09/30/20 08:29 10/02/20 07:12 Labs: Abnormal Lab Results - Last 24 Hours (Table) 10/02/20 Range/Units 07:12 Sodium 136 L (137-145) mmol/L Chloride 95 L (98-107) mmol/L Carbon Dioxide 34 H (22-30) mmol/L BUN 46 H (9-20) mg/dL
[2020-10-02 12:53] VITALS: BP 92/54; PULSE 75; RESP 18; TEMP 98.4
--- NOTE | 2020-10-02 13:37 | P.HPIM ---
History of Present Illness H&P Date: 10/01/20 Chief Complaint: SOB This is a history of physical and 80-year-old white male with known history of congestive heart failure. He complained of significant shortness of breath. After evaluation by cardiology, the patient is somewhat leery of taking so much Lasix and has not been taking Lasix recently. No abnormal dietary intake. No significant nausea or vomiting. I trust that has been helping the patient. He is peripherally admitted for congestive heart failure. Review of Systems Constitutional: Denies chills, Denies fever Cardiovascular: Reports dyspnea on exertion, Denies edema Gastrointestinal: Denies abdominal pain, Denies diarrhea, Denies nausea, Denies vomiting Musculoskeletal: Denies myalgias Past Medical History Past Medical History: Atrial Fibrillation, Coronary Artery Disease (CAD), Heart Failure, Hyperlipidemia, Hypertension, Myocardial Infarction ([place]), Pneumonia, Respiratory Disorder Additional Past Medical History / Comment(s): Pt recently admitted to [facility] on 09/01/20 with exacerbation CHF/hypoxia/Afib with RVR. Other hx: Home oxygen at 3-4L/NC, bronchitis, RLS. Last Myocardial Infarction Date:: 2003 History of Any Multi-Drug Resistant Organisms: None Reported Past Surgical History: Appendectomy, Coronary Bypass/CABG, Heart Catheterization With Stent, Joint Replacement Additional Past Surgical History / Comment(s): ROMI, ascending aortic and bicuspid valve replacement at [facility], PCI with stents, bilateral knee replacements, bilateral cataract removal. Past Anesthesia/Blood Transfusion Reactions: No Reported Reaction Date of Last Stent Placement:: 2019 Smoking Status: Never smoker - Past Family History Mother Family Medical History: Coronary Artery Disease (CAD), Liver Disease Brother(s) Family Medical History: Congestive Heart Failure (CHF) Additional Family Medical History / Comment(s): heart transplant Father Family Medical History: Congestive Heart Failure (CHF) Medications and Allergies Home Medications Medication Instructions Recorded Confirmed Type RX: Enalapril Maleate [Vasotec] 2.5 mg PO DAILY 10/18/18 09/30/20 History RX: Metoprolol Tartrate [Lopressor] 50 mg PO BID 10/18/18 09/30/20 History RX: Rivaroxaban [Xarelto] 20 mg PO DAILY 10/18/18 09/30/20 History RX: Albuterol Sulfate [Ventolin 2 puff INHALATION RT-QID PRN 05/13/20 09/30/20 History HFA] RX: Albuterol Nebulized [Ventolin 2.5 mg INHALATION RT-QID PRN 07/10/20 09/30/20 History Nebulized] RX: Cholecalciferol [Vitamin D3 50 mcg PO DAILY 07/10/20 09/30/20 History (25 Mcg = 1000 Iu)] RX: Rosuvastatin Calcium [Crestor] 5 mg PO SUMOWEFRSA 07/10/20 09/30/20 History RX: Clopidogrel [Plavix] 75 mg PO DAILY #30 tab 07/14/20 09/30/20 Rx RX: Amiodarone [Cordarone] 200 mg PO BID tab 09/03/20 09/30/20 Rx RX: Furosemide [Lasix] 40 mg PO BID@0900,1600 tab 09/03/20 09/30/20 Rx Spironolactone [Aldactone] 25 mg PO DAILY #90 tablet 10/02/20 Rx Allergies Allergy/AdvReac Type Severity Reaction Status Date / Time No Known Allergies Allergy Verified 09/30/20 10:09 Physical Exam Vitals: Vital Signs Temp Pulse Resp BP Pulse Ox 10/02/20 12:00 98.4 F 75 18 92/54 93 L 10/02/20 08:00 97.8 F 73 19 101/62 93 L 10/02/20 03:29 97.5 F L 88 16 106/61 10/02/20 01:52 16 10/01/20 23:30 98.1 F 60 16 103/58 96 10/01/20 20:00 18 10/01/20 19:52 97.6 F 80 18 98/59 92 L 10/01/20 15:33 97.4 F L 78 16 98/66 92 L 10/01/20 14:00 16 Intake and Output 10/01/20 10/02/20 10/02/20 22:59 06:59 14:59 Intake Total 240 Output Total 500 Balance 240 -500 Intake: Oral 240 Output: Urine 500 Other: Voiding Method Urinal Urinal Urinal # Voids 1 Weight 83.7 kg 83.2 kg - Constitutional General appearance: no acute distress - EENT Eyes: EOMI - Respiratory Respiratory: bilateral: diminished - Cardiovascular Rhythm: irregularly irregular Heart sounds: normal: S1, S2 Abnormal Heart Sounds: no S3 Gallop - Gastrointestinal General gastrointestinal: soft, tenderness - Psychiatric Psychiatric: A&O x's 3, no appropriate affect Results CBC & Chem 7: 09/30/20 08:29 10/02/20 07:12 Labs: Abnormal Lab Results - Last 24 Hours (Table) 10/02/20 Range/Units 07:12 Sodium 136 L (137-145) mmol/L Chloride 95 L (98-107) mmol/L Carbon Dioxide 34 H (22-30) mmol/L BUN 46 H (9-20) mg/dL Thrombosis Risk Factor Assmnt - Choose All That Apply Any of the Below Risk Factors Present?: Yes Each Factor Represents 1 point: Heart failure (<1month), Serious lung disease incl. pneumonia (< 1month) Other Risk Factors: Yes Each Risk Factor Represents 3 Points: Age 75 years or older Other congenital or acquired thrombophilia - If yes, enter type in comment: No Thrombosis Risk Factor Assessment Total Risk Factor Score: 5 Thrombosis Risk Factor Assessment Level: High Risk Assessment and Plan (1) Atrial fibrillation Current Visit: Yes Status: Acute Code(s): I48.91 - UNSPECIFIED ATRIAL FIBRILLATION SNOMED Code(s): 69455397 (2) CHF exacerbation Current Visit: No Status: Acute Code(s): I50.9 - HEART FAILURE, UNSPECIFIED SNOMED Code(s): 927467597 Plan: Continue appropriate diuresis. Appreciate cardiology input. Check CBC and CMP in a.m. The patient is a full code at this time. See orders otherwise. Reconcile home medications. Time with Patient: Greater than 30
[2020-10-02] MEDS ORDERED: FUROSEMIDE 40 MG TAB PO SCH (16:00)
== END 2020-10-02 14:13 | disposition home or self-care (01) | DRG 291 ==
LOC: EC 08:13 → 3SCARD 09:21
PROVIDERS: ADMIT Family Medicine; ATTEND Family Medicine
PROC: 5A09357 Assistance with Respiratory Ventilation, Less than 24 Consecutive Hours, Continuous Positive Airway Pressure (ICD-10-PCS; principal; 2020-09-30)
DX: I11.0 Hypertensive heart disease with heart failure (principal); J96.21 Acute and chronic respiratory failure with hypoxia; E87.2 Acidosis; I48.21 Permanent atrial fibrillation; Z95.1 Presence of aortocoronary bypass graft; Z95.2 Presence of prosthetic heart valve; Z99.81 Dependence on supplemental oxygen; Z79.01 Long term (current) use of anticoagulants; I50.23 Acute on chronic systolic (congestive) heart failure; Z20.822 Contact with and (suspected) exposure to COVID-19; I25.10 Atherosclerotic heart disease of native coronary artery without angina pectoris; E78.5 Hyperlipidemia, unspecified; I25.5 Ischemic cardiomyopathy; G25.81 Restless legs syndrome; I25.2 Old myocardial infarction; Z71.3 Dietary counseling and surveillance; Z79.82 Long term (current) use of aspirin; Z79.899 Other long term (current) drug therapy; Z79.02 Long term (current) use of antithrombotics/antiplatelets; Z87.81 Personal history of (healed) traumatic fracture; Z95.5 Presence of coronary angioplasty implant and graft; Z90.49 Acquired absence of other specified parts of digestive tract; Z96.653 Presence of artificial knee joint, bilateral; Z98.42 Cataract extraction status, left eye; Z98.41 Cataract extraction status, right eye; Z91.14 Patient's other noncompliance with medication regimen; Z87.01 Personal history of pneumonia (recurrent); Z82.49 Family history of ischemic heart disease and other diseases of the circulatory system; Z83.79 Family history of other diseases of the digestive system
CPT/HCPCS: 36415; 36600; 71045; 80048; 80053; 82805; 83605; 83735; 83880; 84484; 85025; 85610; 85730; 87635; 93005; 94660; 94760; 96374; 96376; 99285

== ENCOUNTER → 2021-01-21 | Outpatient (CLI) | payer MEDICARE ==
[2021-01-21 15:22] LABS: African American GFR (CKD) 40.3 (60.0-200.0); Albumin 4.2 g/dL (3.80-4.90); Albumin/Globulin Ratio 1.75 (1.60-3.17); Anion Gap 8.1 mmol/L (4.00-12.00); BUN/Creat Ratio 23.33 Ratio (12.00-20.00); Calcium 9.2 mg/dL (8.7-10.3); Carbon Dioxide 25.9 mmol/L (21.6-31.8); Chol/HDL Ratio 2.32; Globulin 2.4 g/dL (1.6-3.3); LDL Cholesterol,Calculated 38.2 mg/dL (0.0-131.0); Non-African American GFR(CKD) 34.8 (60.0-200.0); Potassium 4.9 mmol/L (3.5-5.5); Total Bilirubin 1.9 mg/dL (0.3-1.2); Total Protein 6.6 g/dL (6.2-8.2); VLDL Calculation 10.8 mg/dL (5.00-40.00)
== END | disposition home or self-care (01) ==
LOC: LABWHC1 07:53
PROVIDERS: ATTEND Internal Medicine Interventional Cardiology
DX: E78.2 Mixed hyperlipidemia (principal)
CPT/HCPCS: 36415; 80053; 80061; 83880